=== PATIENT | female | born 1945 | race Caucasian/White ===

== ENCOUNTER 2017-06-03 09:00 | Inpatient (IN) ==
--- NOTE | 2017-05-29 09:11 | Cardiothoracic History & Phys ---
History of Present Illness Chief complaint: Chest pain History of present illness: Ms. Rhodes is a 71 year old female who underwent evaluation by Dr. rob as an outpatient because of exertional chest pain. This is typical of angina and occurred with exercise and was relieved by rest. There was some associated shortness of breath but no nausea or diaphoresis. Patient did not have nighttime symptoms nor any orthopnea. She did have a catheterization 5-7 years ago which was negative. At the time of this catheterization she was found to have severe three-vessel disease and was admitted for bypass surgery. Past medical history: Patient has a history of hypertension and diabetes mellitus type 2. She also has a history of hypothyroidism and hyperlipidemia. Her past surgical history shows a history of hysterectomy. Family history shows a history of stroke on her father's side as well as myocardial infarction. Patient's sister has type 2 diabetes mellitus. Social history the patient has never been a cigarette smoker and is a nondrinker. Review of systems is noncontributory for the present illness. Physical examination: Patient is a well-developed well-nourished white female in no acute distress. Examination of head eyes ears nose and throat show the pupils are equal and react to light and extraocular motions are intact. Oropharynx is benign. Examination of the neck shows no thyromegaly and there are no masses and there are no bruits. Examination of chest is clear to percussion and auscultation. Examination heart shows regular sinus rhythm and there are no murmurs. Examination the abdomen is soft and nontender and there are no masses or organomegaly. Examination extremities shows no cyanosis or edema and the neurological examination is grossly intact. Assessment: Three-vessel coronary artery disease. Plan: Coronary bypass surgery 06/04/2017. Home Medications Medication Instructions Recorded Confirmed Type Aspirin EC Tab 81 mg PO DAILY 05/28/17 05/28/17 History Atenolol 25 mg PO BID 05/28/17 05/28/17 History Garlic 2,000 mg PO BID 05/28/17 05/28/17 History Insulin Glargine [Lantus] 14 unit SUBCUT BEDTIME 05/28/17 05/28/17 History Isosorbide Mononitrate 10 mg PO BID 05/28/17 05/28/17 History Levothyroxine Tab [Synthroid Tab] 88 mcg PO DAILY 05/28/17 05/28/17 History Magnesium Chloride [Slow Mag] 64 mg PO BID 05/28/17 05/28/17 History Nitroglycerin Sl Tab [Nitrostat] 0.4 mg SL Q5M PRN #25 tablet 05/28/17 Rx Spironolactone 12.5 mg PO DAILY 05/28/17 05/28/17 History Vitamin E 400 unit PO DAILY 05/28/17 05/28/17 History amLODIPine [Norvasc] 2.5 mg PO BID 05/28/17 05/28/17 History metFORMIN [Glucophage] 1,000 mg PO BID W/MEALS 05/28/17 05/28/17 History Allergies Allergy/AdvReac Type Severity Reaction Status Date / Time nifedipine [From Procardia] Allergy Shakiness Verified 05/28/17 11:56 penicillin G Allergy RASH Verified 05/28/17 11:56 Sulfa (Sulfonamide Allergy RASH Verified 05/28/17 11:56 Antibiotics) sulfamethoxazole Allergy RASH Verified 05/28/17 11:56 [From Bactrim] trimethoprim [From Bactrim] Allergy RASH Verified 05/28/17 11:56 Medical,Surgical,& Family Hx - Medical History Cardio: History of: Hypertension Neurology: No history of: Seizures Endocrine: History of: Diabetes Mellitus (IDDM), Dyslipidemia - Surgical History Reproductive Surgeries: Surgical HX of;: Hysterectomy - Family History Family History: Reports;: Family Cancer (mother of cancer of uncertain primary), Family Heart Disease (father and 2 brothers with coronary artery disease.) - Social History Smoking Status: Never smoker
[~2017-06-03 09:00] MED LIST: DEXTROSE 50% 25 GM/50 ML VIAL IV PRN; GLUCAGON 1 MG VIAL IM PRN; NITROGLYCERIN SL 0.4 MG TABLET SL PRN
[2017-06-03] MEDS ORDERED: CEFUROXIME INJ 1,500 MG in SODIUM CHLORIDE 0.9% 100 ML IV ONE (09:12)
--- NOTE | 2017-06-03 10:25 | EKG Report ---
Stationary ECG Study [facility] Test Date: 06/03/2017 10:22:32 AM Pat Name: KWABENA BOSS Department: Room: 269 Gender: F Recreational Director: JIL : 1945 Requested by: Gianni Conner Order Number: [id number] Reading MD: ALEJANDRA SALAZAR Intervals [place] Rate: 69 P: 79 [place]: 240 QRS: 64 QRSD: 91 T: 90 QT: 381 QTc: 400 Interpretive Statements SINUS RHYTHM WITH PROLONGED [place] INTERVAL MINIMAL ST DEPRESSION Electronically Signed On 06-03-17 16:22:26 CDT by ALEJANDRA SALAZAR [email or web address]
[2017-06-03 10:34] LABS: Basophils % 0.6 % (0.0-0.8); Eosinophils # 0.1 10*3/uL (0.0-0.87); Eosinophils % 1.8 % (0.00-10.9); Hematocrit 32.8 VOL% (35.7-47.0); Hemoglobin 10.2 GM/DL (12.0-16.0); Immature Granulocytes % 0.5 %; Immature Granulocytes Absolute 0.03 #; Lymphocytes # 1.6 10*3/uL (1.4-4.0); Mean Corpuscular HGB Conc 31.1 GM/DL (32-36); Mean Corpuscular Hemoglobin 22 PG (27-34); Mean Corpuscular Volume 70.2 FL (87-102); Mean Platelet Volume 10.4 FL (9.6-12.0); Monocytes # 0.6 10*3/uL (0.11-0.8); Monocytes % 8.6 % (1.7-12.7); Neutrophils # 4.2 10*3/uL (1.4-7.4); Neutrophils % 64.5 % (38.7-73.9); Platelet Count 265 T/CUMM (130-400); Red Blood Count 4.67 MC/CUMM (3.8-5.5); Red Cell Distribution Width 17.4 % (9.3-17.3); White Blood Count 6.5 T/CUMM (4-12)
[2017-06-03 11:09] LABS: Alanine Aminotransferase 14 U/L (13-56); Alkaline Phosphatase 84 U/L (45-117); Aspartate Amino Transferase 9 U/L (0-37); Bilirubin,Total < 0.39 MG/DL (0.2-1.0); Calcium 9.7 MG/DL (8.5-10.1); Total Protein 7.8 G/DL (6.4-8.3)
[2017-06-03 11:10] LABS: Blood Urea Nitrogen 16 MG/DL (7-18); Glucose 135 MG/DL (74-106); Osmolality,Calculated 268.4 MOS/KG (273-304); Potassium 4.7 MMOL/L (3.5-5.1); Sodium 133 MMOL/L (136-145)
[2017-06-03 11:11] LABS: Allen Test Positive; Pt O2 Delivery Device Room Air
[2017-06-03 11:12] LABS: ABG Base Excess -2.5 MMOL/L (-2.5-2.5); ABG HCO3 22.2 MMOL/L (20-26); ABG Oxygen Saturation 93.8 % (95-100); ABG PCO2 34.2 MM HG (35-48); ABG PH 7.408 (7.35-7.45); ABG PO2 76.3 MM HG (80-95); ABG TCO2 19.7 MMOL/L (23-27)
[2017-06-03] MEDS: SPIRONOLACTONE 25 MG TABLET PO SCH ×3 (11:36→20:20)
[2017-06-03] MEDS: ISOSORBIDE MONONITRATE 20 MG TABLET PO SCH ×3 (11:38→20:03)
[2017-06-03] MEDS: amLODIPine 2.5 MG TABLET PO SCH ×4 (11:38→20:03)
[2017-06-03] MEDS: CHLORHEXIDINE 0.12% ORAL RINSE 60 ML BOTTLE SWISH/SPIT SCH ×5 (11:38→20:02)
[2017-06-03] MEDS: ASPIRIN EC 81 MG TABLET PO SCH (11:38)
[2017-06-03] MEDS: ATENOLOL 25 MG TABLET PO SCH ×5 (11:39→20:02)
[2017-06-03] MEDS: LEVOTHYROXINE 88 MCG TABLET PO SCH ×3 (11:39→11:43)
[2017-06-03] MEDS: MAGNESIUM CHLORIDE 64 MG TABLET PO SCH ×4 (11:39→20:03)
[2017-06-03] MEDS: SODIUM CHLORIDE 0.9% 1,000 ML IV SCH ×2 (11:40→11:44)
[2017-06-03] MEDS: INSULIN GLARGINE 100 UNIT/ML SUBCUT SCH ×3 (11:40→20:03)
[2017-06-03] MEDS: VITAMIN E 400 UNIT CAPSULE PO SCH (11:48)
--- NOTE | 2017-06-03 16:17 | XRay Report ---
2 view chest June 03, 2017 at 1540 hours Indication: Shortness of breath Comparison: Not available Findings: Cardiomediastinal contours are normal. Mild atheromatous changes along the arch. Lungs are clear bilaterally. No acute osseous abnormalities. Visualized upper abdomen demonstrates no acute pathology. Impression: No acute cardiopulmonary findings PROCEDURE INTERPRETED AT [facility] DEPARTMENT OF RADIOLOGY Final Report Signed by: Alex Mendez
--- NOTE | 2017-06-03 17:14 | Cardiology Consult Note ---
Assessment and Plan - Time spent with patient Time spent with patient: Greater than 30 minutes (1) Angina effort Status: Acute Assessment and plan: She has failed medical therapy Has significant three-vessel disease which would benefit from revascularization I reviewed the cath with Dr. Tapia. He agrees patient needs revascularization, bypass grafting We will continue her current cardiac meds to minimize recurrence of angina before the bypass We will continue treatment for her constipation postop We will continue cardiac meds If we need help with her diabetes management, could get Dr. Santiago Sanz to help I will follow along with you. Thank you for allowing me to participate in this patient's care Current Visit: No (2) Constipation Status: Acute Current Visit: Yes (3) 3-vessel CAD Status: Acute Current Visit: Yes (4) CAD (coronary artery disease) Status: Acute Current Visit: No (5) Diabetes Status: Acute Current Visit: No (6) Hypercholesterolemia Status: Acute Current Visit: No (7) Statin intolerance Status: Acute Current Visit: No History of Present Illness - Data of Consult Patient: known to practice within the last 3 years Consult date: 06/03/17 Requesting Physician: Gianni Tapia Primary care physician: Santiago Sanz - Consult Narrative Reason for consult: Evaluate angina, for bypass grafting History of present illness: Ms. Rhodes is a 71 year old female PCP: Dr. Santiago Sanz Change Management: Dr. martin Ms. tim Rhodes has had increasing arm pain which it was more atypical than typical. However she underwent treadmill testing was abnormal. She underwent cath. She was found to have three-vessel disease. It was assessed best to undergo bypass. However she was stable. I added some isosorbide mononitrate to her medical regimen he should let go home. She is set up to be admitted today and undergo bypass grafting by Dr. Tapia tomorrow. She has had less chest pain since at home. She does have some morning chest pain. No orthopnea, PND, edema, palpitations, syncope, cough, wheezing, or phlegm. Past medical history: Coronary disease Diabetes Anxiety Hypercholesterolemia Statin intolerance-now is on pravastatin, tolerating it better, may need a stronger statin Review of systems is negative except for having some nasal congestion. Her constipation has been better with taking Metamucil and MiraLAX regularly. CC: Gianni Tapia MD - Home Medications and Allergies Home Medications: Home Medications Medication Instructions Recorded Confirmed Type Aspirin EC Tab 81 mg PO DAILY 05/28/17 06/03/17 History Atenolol 25 mg PO BID 05/28/17 06/03/17 History Garlic 2,000 mg PO BID 05/28/17 06/03/17 History Insulin Glargine [Lantus] 14 unit SUBCUT BEDTIME 05/28/17 06/03/17 History Isosorbide Mononitrate 10 mg PO BID 05/28/17 06/03/17 History Levothyroxine Tab [Synthroid Tab] 88 mcg PO DAILY 05/28/17 06/03/17 History Magnesium Chloride [Slow Mag] 64 mg PO BID 05/28/17 06/03/17 History Nitroglycerin Sl Tab [Nitrostat] 0.4 mg SL Q5M PRN #25 tablet 05/28/17 06/03/17 Rx Spironolactone 12.5 mg PO DAILY 05/28/17 06/03/17 History Vitamin E 400 unit PO DAILY 05/28/17 06/03/17 History amLODIPine [Norvasc] 2.5 mg PO BID 05/28/17 06/03/17 History metFORMIN [Glucophage] 1,000 mg PO BID W/MEALS 05/28/17 06/03/17 History Allergies/Adverse Reactions: Allergies Allergy/AdvReac Type Severity Reaction Status Date / Time nifedipine [From Procardia] Allergy Shakiness Verified 05/28/17 11:56 penicillin G Allergy RASH Verified 05/28/17 11:56 Sulfa (Sulfonamide Allergy RASH Verified 05/28/17 11:56 Antibiotics) sulfamethoxazole Allergy RASH Verified 05/28/17 11:56 [From Bactrim] trimethoprim [From Bactrim] Allergy RASH Verified 05/28/17 11:56 12 point system: reviewed and no additional remarkable complaints except as stated (A 12 point review of systems is negative except for as mentioned in HPI. ) Medical,Surgical,& Family Hx - Medical History Cardio: History of: CAD, Hypertension Neurology: No history of: Seizures Endocrine: History of: Diabetes Mellitus (IDDM), Dyslipidemia, Thyroid Disorder Other: History of: Miscellaneous Medical Problems (:"blood clot in throat") - Surgical History Cardiac Surgeries: Sugical HX of: Cardiac Catheterization Reproductive Surgeries: Surgical HX of;: Hysterectomy - Family History Family History: Reports;: Family Cancer (mother of cancer of uncertain primary), Family Heart Disease (father and 2 brothers with coronary artery disease.) - Social History Smoking Status: Never smoker Frequency of Alcohol Use: None Type of Drug Use: None Physical Examination Vital Signs Temp Pulse Resp BP Pulse Ox 97.7 F 97 H 20 160/89 97 06/03/17 10:10 06/03/17 10:10 06/03/17 10:10 06/03/17 10:10 06/03/17 10:10 Exam: HEENT: Pupils equal, reactive to light and accommodation Neck: NoJVD or bruit Lungs clear to auscultation Heart: Regular rhythm rate with normal S1 and S2. Apical S4 Abdomen: No hepatosplenomegaly Spine/extremities: No clubbing, cyanosis, or edema Neuro: Nonfocal Psych: No depression or anxiety Right groin puncture site had is okay. Distal pulse the right leg is normal. Result/EKG - Labs CBC & BMP: 06/03/17 10:12 06/03/17 10:12 Lab Results: I have reviewed the past 24 hour labs Labs: Laboratory Results - last 24 hr 06/03/17 06/03/17 06/03/17 10:12 10:12 10:12 WBC 6.5 RBC 4.67 Hgb 10.2 L Hct 32.8 L MCV 70.2 L MCH 22 L MCHC 31.1 L RDW 17.4 H Plt Count 265 MPV 10.4 Neut % (Auto) 64.5 Lymph % (Auto) 24.0 [place] % (Auto) 8.6 Eos % (Auto) 1.8 Baso % (Auto) 0.6 Neut # (Auto) 4.2 Lymph # (Auto) 1.6 [place] # (Auto) 0.6 Eos # (Auto) 0.1 Baso # (Auto) 0.0 Immature Gran % 0.5 Nucleated RBC % 0.0 Immature Gran # 0.03 Nucleated RBCs # 0.00 Immature Plt Fraction 0.0 ABG pH ABG pCO2 ABG pO2 ABG HCO3 ABG Total CO2 ABG O2 Saturation ABG Base Excess FiO2 Sodium 133 L Potassium 4.7 Chloride 99 Carbon Dioxide 24 Anion Gap 14.7 BUN 16 Creatinine 0.90 GFR Calculation 60 BUN/Creatinine Ratio 17.00 Glucose 135 H POC Glucose Calculated Osmolality 268.4 L Calcium 9.7 Total Bilirubin < 0.39 AST 9 ALT 14 Alkaline Phosphatase 84 Total Protein 7.8 Albumin 4.0 Globulin 3.8 H Albumin/Globulin Ratio 1.0 L Blood Type A POSITIVE Antibody Screen Negative Crossmatch See Detail 06/03/17 06/03/17 06/03/17 10:49 11:50 15:48 WBC RBC Hgb Hct MCV MCH MCHC RDW Plt Count MPV Neut % (Auto) Lymph % (Auto) [place] % (Auto) Eos % (Auto) Baso % (Auto) Neut # (Auto) Lymph # (Auto) [place] # (Auto) Eos # (Auto) Baso # (Auto) Immature Gran % Nucleated RBC % Immature Gran # Nucleated RBCs # Immature Plt Fraction ABG pH 7.408 ABG pCO2 34.2 L ABG pO2 76.3 L ABG HCO3 22.2 ABG Total CO2 19.7 L ABG O2 Saturation 93.8 L ABG Base Excess -2.5 FiO2 21.00 Sodium Potassium Chloride Carbon Dioxide Anion Gap BUN Creatinine GFR Calculation BUN/Creatinine Ratio Glucose POC Glucose 95 232 H Calculated Osmolality Calcium Total Bilirubin AST ALT Alkaline Phosphatase Total Protein Albumin Globulin Albumin/Globulin Ratio Blood Type Antibody Screen Crossmatch 06/03/17 Unknown WBC RBC Hgb Hct MCV MCH MCHC RDW Plt Count MPV Neut % (Auto) Lymph % (Auto) [place] % (Auto) Eos % (Auto) Baso % (Auto) Neut # (Auto) Lymph # (Auto) [place] # (Auto) Eos # (Auto) Baso # (Auto) Immature Gran % Nucleated RBC % Immature Gran # Nucleated RBCs # Immature Plt Fraction ABG pH ABG pCO2 ABG pO2 ABG HCO3 ABG Total CO2 ABG O2 Saturation ABG Base Excess FiO2 Sodium Potassium Chloride Carbon Dioxide Anion Gap BUN Creatinine GFR Calculation BUN/Creatinine Ratio Glucose POC Glucose Calculated Osmolality Calcium Total Bilirubin AST ALT Alkaline Phosphatase Total Protein Albumin Globulin Albumin/Globulin Ratio Blood Type A POSITIVE Antibody Screen Crossmatch - Diagnostic Findings Procedure: Chest x-ray: report reviewed by me Quality Measures - VTE Contraindication to Pharmacological VTE Prophylaxis: High Risk of Bleeding Specialty Discharge - Follow Up or Referrals Follow up with: Alvin Martin MD [Physician] - Santiago Sanz MD [Primary Care Provider] - Gianni Tapia MD [Physician] -
[2017-06-03] MEDS: CHLORHEXIDINE 4% SOLN 118 ML BOTTLE TOP SCH ×2 (19:44→20:03)
[2017-06-03] MEDS ORDERED: SPIRONOLACTONE 25 MG TABLET PO ONE (21:00)
[2017-06-04] MEDS ORDERED: PAPAVERINE 60 MG/2 ML VIAL ONE ×2 (04:36→09:43)
[2017-06-04] MEDS ORDERED: VANCOMYCIN 1,000 MG VIAL ONE (04:36)
[2017-06-04] MEDS ORDERED: CEFUROXIME INJ 1,500 MG in SODIUM CHLORIDE 0.9% 100 ML IV ONE (05:00)
[2017-06-04] MEDS ORDERED: LORazepam 0.5 MG TABLET PO ONE (05:30)
[2017-06-04] MEDS ORDERED: FAMOTIDINE 20 MG TABLET PO ONE (05:30)
[2017-06-04] MEDS: MAGNESIUM CHLORIDE 64 MG TABLET PO SCH ×2 (05:54→21:41)
[2017-06-04] MEDS: ATENOLOL 25 MG TABLET PO SCH ×2 (05:54→21:41)
[2017-06-04] MEDS: LEVOTHYROXINE 88 MCG TABLET PO SCH ×2 (05:54→21:41)
[2017-06-04] MEDS: amLODIPine 2.5 MG TABLET PO SCH ×2 (05:54→21:40)
[2017-06-04] MEDS: ISOSORBIDE MONONITRATE 20 MG TABLET PO SCH ×2 (05:54→21:40)
[2017-06-04 05:58] LABS: PT Patient Result 10.9 SECS; Partial Thromboplastin Time 24.5 SECS (0-40)
[2017-06-04] MEDS: CHLORHEXIDINE 4% SOLN 118 ML BOTTLE TOP SCH ×2 (05:59→21:40)
[2017-06-04] MEDS: CHLORHEXIDINE 0.12% ORAL RINSE 60 ML BOTTLE SWISH/SPIT SCH ×3 (05:59→21:40)
[2017-06-04 06:01] LABS: Calcium 9.7 MG/DL (8.5-10.1); Osmolality,Calculated 279.7 MOS/KG (273-304); Potassium 4.2 MMOL/L (3.5-5.1)
[2017-06-04] MEDS ORDERED: CALCIUM CHLORIDE 1,000 MG/10 ML SYRINGE IV ONE ×2 (06:38→07:22)
[2017-06-04] MEDS ORDERED: NITROPRUSSIDE 50 MG/2 ML VIAL ONE (07:21)
[2017-06-04] MEDS ORDERED: PHENYLEPHRINE DRIP 40 MG/250 ML PREMIX IV ONE (07:21)
[2017-06-04] MEDS ORDERED: POTASSIUM CHLORIDE RIDER 100 ML IV ONE (07:22)
[2017-06-04] MEDS ORDERED: SODIUM BICARBONATE 50 MEQ/50 ML SYRINGE IV ONE ×2 (07:22→12:33)
[2017-06-04 07:47] LABS: ABG Base Excess -1.1 MMOL/L (-2.5-2.5); ABG HCO3 23.5 MMOL/L (20-26); ABG Oxygen Saturation 99.1 % (95-100); ABG PCO2 23.2 MM HG (35-48); ABG PH 7.551 (7.35-7.45); ABG TCO2 18.8 MMOL/L (23-27); Glucose Heart Surgery 165 MG/DL (74-106); Hemoglobin Heart Surgery 8.3 G/DL (12.0-16.0); Ionized Calcium Arterial 1.16 MMOL/L (1.21-1.46); PCO2 Patient Temp Arterial 23.2 MMHG; PH Patient Temp Arterial 7.551; Patient Temperature 37 CELCIUS; Potassium Heart/CVR 3.7 MMOL/L (3.5-5.1); Sodium Heart/CVR 138 MMOL/L (135-145)
[2017-06-04] MEDS ORDERED: INSULIN REGULAR DRIP 100 ML IV ONE (07:52)
[2017-06-04] MEDS ORDERED: ALBUMIN 5% 12.5 GM/250 ML VIAL IV ONE (08:01)
[2017-06-04 08:17] LABS: Apearance,Urine CLEAR (Clear); Bilirubin,Urine Negative (Negative); Blood, Urine Negative (Negative); Glucose,Urine (UA) 50 mg/dL (Negative); Ketones,Urine Negative (Negative); Nitrite,Urine Negative (Negative); Protein,Urine Negative; RBC,Urine 1 /HPF (0-4); Squamous Epithelial Cell,Urine Occasional /HPF (0-10); Urine Color Colorless (Yellow); Urine Specific Gravity 1.003 (1.001-1.035); Urine Urobilinogen < 2.0 EU/DL (0.2-1.0); WBC,Urine <1 /HPF (0-6)
[2017-06-04 09:17] LABS: Hematocrit Heart Surgery 25.4 PERCENT (37-47); Hemoglobin Heart Surgery 8.2 G/DL (12.0-16.0); PCO2 Patient Temp Venous 32.4 MM HG; PH Patient Temp Venous 7.427; PO2 Patient Temp Venous 35.6 MM HG; Potassium Heart/CVR 4.7 MMOL/L (3.5-5.1); VBG Base Excess -2.3 MEQ/L (0-4); VBG HCO3 22.2 MEQ/L (24-28); VBG Oxygen Saturation 77.6 %; VBG PCO2 37.5 MMHG (41-51); VBG PH 7.384; VBG PO2 43.8 MMHG (17-40)
[2017-06-04 09:43] LABS: Hemoglobin Heart Surgery 7.7 G/DL (12.0-16.0); PCO2 Patient Temp Venous 26.3 MM HG; PH Patient Temp Venous 7.512; PO2 Patient Temp Venous 33.1 MM HG; Potassium Heart/CVR 5.3 MMOL/L (3.5-5.1); VBG Base Excess -1.1 MEQ/L (0-4); VBG HCO3 23.2 MEQ/L (24-28); VBG Oxygen Saturation 80.4 %; VBG PCO2 31.9 MMHG (41-51); VBG PH 7.453; VBG PO2 43.6 MMHG (17-40)
[2017-06-04 10:13] LABS: Hematocrit Heart Surgery 22.1 PERCENT (37-47); Hemoglobin Heart Surgery 7.1 G/DL (12.0-16.0); PCO2 Patient Temp Venous 26.8 MM HG; PH Patient Temp Venous 7.518; PO2 Patient Temp Venous 35.9 MM HG; Potassium Heart/CVR 5.4 MMOL/L (3.5-5.1); VBG Base Excess -0.6 MEQ/L (0-4); VBG HCO3 23.7 MEQ/L (24-28); VBG Oxygen Saturation 78.7 %; VBG PCO2 29.5 MMHG (41-51); VBG PH 7.488; VBG PO2 41.2 MMHG (17-40)
[2017-06-04 11:50] LABS: Hemoglobin Heart Surgery 6.4 G/DL (12.0-16.0); PCO2 Patient Temp Venous 35.4 MM HG; PH Patient Temp Venous 7.327; PO2 Patient Temp Venous 38.3 MM HG; Potassium Heart/CVR 4.4 MMOL/L (3.5-5.1); VBG Base Excess -6.8 MEQ/L (0-4); VBG HCO3 18.4 MEQ/L (24-28); VBG Oxygen Saturation 64.5 %; VBG PCO2 35.4 MMHG (41-51); VBG PH 7.327; VBG PO2 38.3 MMHG (17-40)
[2017-06-04] MEDS ORDERED: INSULIN REGULAR 100 UNIT/ML ONE (12:03)
[2017-06-04 12:19] LABS: Hematocrit Heart Surgery 25.3 PERCENT (37-47); Hemoglobin Heart Surgery 8.1 G/DL (12.0-16.0); Potassium Heart/CVR 3.4 MMOL/L (3.5-5.1)
[2017-06-04 12:27] LABS: VBG Base Excess 1.6 MEQ/L (0-4); VBG HCO3 25.6 MEQ/L (24-28); VBG PCO2 34.1 MMHG (41-51); VBG PH 7.474; VBG PO2 40.9 MMHG (17-40)
[2017-06-04 12:28] LABS: PCO2 Patient Temp Venous 34.1 MM HG; PH Patient Temp Venous 7.474; PO2 Patient Temp Venous 40.9 MM HG; VBG Oxygen Saturation 79.7 %
[2017-06-04] MEDS ORDERED: DEXTROSE 5% KCL 20 MEQ 20 MEQ/1,000 ML BAG IV ONE (12:32)
[2017-06-04] MEDS ORDERED: HEPARIN 10,000 UNIT/10 ML VIAL ONE (12:33)
[2017-06-04] MEDS ORDERED: ALBUMIN 25% 25 GM/100 ML VIAL IV ONE (12:33)
[2017-06-04] MEDS ORDERED: methylPREDNISolone SOD SUC 1,000 MG/8 ML VIAL ONE (12:33)
[2017-06-04] MEDS ORDERED: POTASSIUM CHLORIDE 20 MEQ/10 ML VIAL ONE (12:33)
[2017-06-04] MEDS ORDERED: FUROSEMIDE 20 MG/2 ML VIAL ONE (12:33)
[2017-06-04] MEDS ORDERED: MAGNESIUM SULFATE 1 GM/2 ML VIAL ONE (12:33)
[2017-06-04] MEDS ORDERED: PROTAMINE SULFATE 250 MG/25 ML VIAL IV ONE (12:33)
[2017-06-04 12:44] LABS: ABG HCO3 21.9 MMOL/L (20-26); ABG Oxygen Saturation 99.3 % (95-100); ABG PCO2 37.2 MM HG (35-48); ABG PH 7.375 (7.35-7.45); ABG TCO2 20.4 MMOL/L (23-27); Glucose Heart Surgery 259 MG/DL (74-106); Ionized Calcium Arterial 1.22 MMOL/L (1.21-1.46); PCO2 Patient Temp Arterial 37.2 MMHG; PH Patient Temp Arterial 7.375; Patient Temperature 37 CELCIUS; Potassium Heart/CVR 3.6 MMOL/L (3.5-5.1); Sodium Heart/CVR 141 MMOL/L (135-145)
[2017-06-04] MEDS ORDERED: DOBUTamine 500 MG/250 ML PREMIX IV ONE ×2 (13:16→14:23)
--- NOTE | 2017-06-04 13:51 | Operative Note ---
Date of procedure: 06/04/17 Pre-op diagnosis: Coronary artery disease Post-op diagnosis: same Procedure: Procedure: Coronary bypass grafting 4 with a left internal mammary graft to the anterior descending coronary artery and saphenous vein graft to the right ramus intermedius and circumflex marginal coronary arteries. Findings: Patient is a 72-year-old lady who was found on cardiac catheterization to have critical three-vessel coronary disease. At the time of surgery left ventricular function was noted to be mildly impaired and grafts were placed to the above noted vessels. The distal vessels all had some degree of disease at the site of anastomosis but were of adequate size. The patient tolerated the procedure well and initially was weaned from cardiopulmonary bypass without difficulty but then had a period of hypotension which did not quickly respond to the usual measures and cardiopulmonary bypass was reinstituted and the intra-aortic balloon pump was placed. With this in place patient was weaned from cardiopulmonary bypass without difficulty. She was returned to recovery in satisfactory but critical condition. Procedure: Patient brought to the operating room placed in the operating table in supine position. After satisfactory induction of general anesthesia the chest abdomen and legs were prepped and draped in sterile fashion. Greater saphenous vein was harvested from both lower legs and prepared his arterial grafts. Incisions in the leg were closed with 3-0 subcutaneous Monocryl and skin latrice. A standard sternotomy incision was made and the sternum was divided and the heart suspended in a pericardial cradle. Left internal mammary artery was dissected free from its position in the anterior chest wall and prepared as an arterial graft. It was of marginal size for use as an arterial graft. Right internal mammary artery was palpated and it too felt small and therefore we elected not to use the right internal mammary artery. Patient was prepared for cardiopulmonary bypass with systemic heparinization and cannulation of the ascending aorta and right atrium. Cardiopulmonary bypass was begun and aorta was crossclamped and the heart arrested with cardioplegia solution injected into the aortic root. Heart was protected during the period of crossclamping with topical saline slush. Distal anastomoses were constructed as noted above and then the aorta was unclamped reestablishing cardiac action. Proximal anastomoses were constructed between the saphenous vein grafts in the ascending aorta and then the patient was weaned from cardiopulmonary bypass. The above-noted findings were experienced with hypotension not responding to the usual measures and cardiopulmonary bypass was really instituted and the intra-aortic balloon pump was placed via a small cutdown over the right femoral artery. Incision in the groin was closed with skin latrice. With the intra-aortic balloon pump in place patient was weaned from cardiopulmonary bypass without difficulty. Operative field was inspected for hemostasis and this was considered adequate the incision was closed with interrupted stainless steel wire and the sternum 0 Monopril in the presternal fascia. Skin was closed with 3-0 subcuticular Monocryl. Chest tubes were left in the left hemithorax in the anterior mediastinum and brought out through separate stab incisions. Patient was returned to recovery in satisfactory condition. Anesthesia: SHASHIA Surgeon / Physician: Gianni Tapia Estimated blood loss: other (Unable to determine because of cardiopulmonary bypass) Condition: stable Disposition: ICU Results - Labs CBC & BMP: 06/04/17 12:39 06/04/17 04:10 Discharge Plan - Discharge Medications No Action Vitamin E 400 unit PO DAILY Spironolactone 12.5 mg PO DAILY Magnesium Chloride [Slow Mag] 64 mg PO BID Levothyroxine Tab [Synthroid Tab] 88 mcg PO DAILY Insulin Glargine [Lantus] 14 unit SUBCUT BEDTIME Atenolol 25 mg PO BID Aspirin EC Tab 81 mg PO DAILY metFORMIN [Glucophage] 1,000 mg PO BID W/MEALS amLODIPine [Norvasc] 2.5 mg PO BID Garlic 2,000 mg PO BID Isosorbide Mononitrate 10 mg PO BID Nitroglycerin Sl Tab [Nitrostat] 0.4 mg SL Q5M PRN #25 tablet PRN Reason: Chest Pain - Follow Up or Referral Follow Up: Gianni Tapia MD [Physician] - Santiago Sanz MD [Primary Care Provider] - Alvin Martin MD [Physician] - - Forms/Instructions
[2017-06-04] MEDS ORDERED: NITROPRUSSIDE 100 MG in DEXTROSE 5% 250 ML IV PRN (13:58)
[2017-06-04] MEDS ORDERED: DEXTROSE 50% 25 GM/50 ML SYRINGE IV PRN ×2 (13:58)
[2017-06-04] MEDS ORDERED: MAGNESIUM SULF RIDER 4 GM in PREMIX 1 EACH IV PRN (13:58)
[2017-06-04] MEDS ORDERED: MIDAZOLAM 10 MG/2 ML VIAL IV PRN (13:58)
[2017-06-04] MEDS ORDERED: MAGNESIUM SULF RIDER 2 GM in PREMIX 1 EACH IV PRN (13:58)
[2017-06-04] MEDS ORDERED: ACETAMINOPHEN 650 MG SUPP RECTAL PRN (13:58)
[2017-06-04] MEDS ORDERED: ONDANSETRON 4 MG/2 ML VIAL IV PRN (13:58)
[2017-06-04] MEDS ORDERED: INSULIN REGULAR 100 UNIT/ML IV PRN (13:58)
[2017-06-04] MEDS ORDERED: VECURONIUM 10 MG VIAL IV PRN ×2 (13:58)
[2017-06-04] MEDS ORDERED: MORPHINE 10 MG/1 ML VIAL IV PRN (13:58)
[2017-06-04] MEDS ORDERED: PHENYLEPHRINE DRIP 40 MG/250 ML PREMIX IV PRN (13:58)
[2017-06-04] MEDS ORDERED: INSULIN REGULAR 100 UNIT/ML IV ONE (13:58)
[2017-06-04] MEDS ORDERED: CALCIUM CHLORIDE 1,000 MG/10 ML SYRINGE IV PRN (13:58)
[2017-06-04] MEDS ORDERED: INSULIN REGULAR DRIP 100 ML IV SCH (14:00)
[2017-06-04] MEDS ORDERED: VECURONIUM 10 MG VIAL IV ONE (14:23)
[2017-06-04] MEDS ORDERED: ETOMIDATE 20 MG/10 ML VIAL IV ONE (14:23)
[2017-06-04] MEDS ORDERED: MINERAL OIL/PETROLATUM OPH OINT 3.5 GM TUBE ONE (14:23)
[2017-06-04] MEDS ORDERED: HEPARIN/NACL 0.9% 2 UNITS/ML 500 ML IV ONE (14:23)
[2017-06-04] MEDS ORDERED: SEVOFLURANE 1 UNIT/15 MINUTE INH ONE (14:23)
[2017-06-04] MEDS ORDERED: SODIUM CHLORIDE 0.9% 500 ML IV ONE (14:24)
[2017-06-04] MEDS ORDERED: NITROGLYCERIN DRIP 50 MG/250 ML BOTTLE IV ONE ×2 (14:24→15:45)
[2017-06-04] MEDS ORDERED: LACTATED RINGERS 2,000 ML IV ONE (14:24)
[2017-06-04] MEDS ORDERED: AMINOCAPROIC ACID 5,000 MG/20 ML VIAL IV ONE (14:24)
[2017-06-04] MEDS ORDERED: SODIUM CHLORIDE 0.9% 4,000 ML IV ONE (14:24)
[2017-06-04] MEDS: SODIUM CHLORIDE 0.45% 1,000 ML IV SCH ×2 (14:27)
[2017-06-04 14:31] LABS: ABG Base Excess -3.5 MMOL/L (-2.5-2.5); ABG HCO3 21.5 MMOL/L (20-26); ABG Oxygen Saturation 98.7 % (95-100); ABG PCO2 34.8 MM HG (35-48); ABG PH 7.388 (7.35-7.45); ABG TCO2 19.3 MMOL/L (23-27); Glucose Heart Surgery 222 MG/DL (74-106); Hematocrit Heart Surgery 28.2 PERCENT (37-47); Hemoglobin Heart Surgery 9.1 G/DL (12.0-16.0); Potassium Heart/CVR 3.6 MMOL/L (3.5-5.1)
--- NOTE | 2017-06-04 14:31 | Operative Note ---
Date of procedure: 06/04/17 Pre-op diagnosis: Severe coronary artery disease Post-op diagnosis: same Procedure: [place] of bilateral lower lower extremity great saphenous vein Assist with distal anastomosis of coronary artery bypass graft I made an incision on the medial side of the left lower extremity from the medial malleolus all the way up to the knee. The great saphenous vein was harvested in its entirety. Hemostasis was achieved. I then turned my attention to harvest the right lower extremity great saphenous vein for total of 3 venous grafts. The same procedure was repeated on the right side. The cutaneous tissue was closed using PDS and the skin was closed using latrice. I then turned my attention to assist with the distal anastomosis of the coronary artery bypass graft with Dr. Tapia. Anastomosis was achieved to the right main coronary artery, the ramus artery, the obtuse marginal artery using saphenous vein grafts, and the LAD using pedicled [place]. Details of this procedure are dictated by Dr. Tapia in a separate note. Surgeon / Physician: Shira Valencia Results - Labs CBC & BMP: 06/04/17 12:39 06/04/17 04:10 Discharge Plan - Discharge Medications No Action Vitamin E 400 unit PO DAILY Spironolactone 12.5 mg PO DAILY Magnesium Chloride [Slow Mag] 64 mg PO BID Levothyroxine Tab [Synthroid Tab] 88 mcg PO DAILY Insulin Glargine [Lantus] 14 unit SUBCUT BEDTIME Atenolol 25 mg PO BID Aspirin EC Tab 81 mg PO DAILY metFORMIN [Glucophage] 1,000 mg PO BID W/MEALS amLODIPine [Norvasc] 2.5 mg PO BID Garlic 2,000 mg PO BID Isosorbide Mononitrate 10 mg PO BID Nitroglycerin Sl Tab [Nitrostat] 0.4 mg SL Q5M PRN #25 tablet PRN Reason: Chest Pain - Follow Up or Referral Follow Up: Gianni Tapia MD [Physician] - Santiago Sanz MD [Primary Care Provider] - Alvin Martin MD [Physician] - - Forms/Instructions
[2017-06-04 14:34] LABS: Hematocrit 26.9 VOL% (35.7-47.0); Hemoglobin 9.1 GM/DL (12.0-16.0); Mean Corpuscular HGB Conc 33.8 GM/DL (32-36); Mean Corpuscular Hemoglobin 28 PG (27-34); Mean Corpuscular Volume 81.3 FL (87-102); Mean Platelet Volume 9.5 FL (9.6-12.0); Platelet Count 85 T/CUMM (130-400); Red Blood Count 3.31 MC/CUMM (3.8-5.5); Red Cell Distribution Width 19.3 % (9.3-17.3)
[2017-06-04 14:35] LABS: Basophils % 0.1 % (0.0-0.8); Eosinophils % 0.3 % (0.00-10.9); Immature Granulocytes % 0.8 %; Immature Granulocytes Absolute 0.06 #; Lymphocytes # 0.4 10*3/uL (1.4-4.0); Lymphocytes % 4.8 % (21.3-54.2); Monocytes # 0.7 10*3/uL (0.11-0.8); Monocytes % 9.1 % (1.7-12.7); Neutrophils # 6.8 10*3/uL (1.4-7.4); Neutrophils % 84.9 % (38.7-73.9)
[2017-06-04 14:51] LABS: INR 1.2; PT Patient Result 13.2 SECS; Partial Thromboplastin Time 28.4 SECS (0-40)
[2017-06-04] MEDS: POTASSIUM CHLORIDE RIDER 20 MEQ in PREMIX 1 EACH IV PRN ×4 (15:05→23:27)
--- NOTE | 2017-06-04 15:11 | Event Note ---
[place]-Desiree catheter passed via the right subclavian vein.
[2017-06-04 15:14] LABS: Albumin 2.3 G/DL (3.4-5.0); Bilirubin,Total 1.2 MG/DL (0.2-1.0); Calcium 8.3 MG/DL (8.5-10.1); Magnesium 2.1 MG/DL (1.8-2.4); Osmolality,Calculated 299.4 MOS/KG (273-304); Potassium 3.7 MMOL/L (3.5-5.1); Total Protein 4.1 G/DL (6.4-8.3)
[2017-06-04 15:23] LABS: CKMB % 4.3 %
[2017-06-04 15:26] LABS: Troponin I Only 26.1 NG/ML (0.00-0.045)
[2017-06-04 15:33] LABS: ABG Base Excess -1.9 MMOL/L (-2.5-2.5); ABG HCO3 22.8 MMOL/L (20-26); ABG Oxygen Saturation 99.1 % (95-100); ABG PCO2 31.1 MM HG (35-48); ABG PH 7.444 (7.35-7.45); ABG TCO2 19.1 MMOL/L (23-27); Glucose Heart Surgery 225 MG/DL (74-106); Hematocrit Heart Surgery 33.7 PERCENT (37-47); Hemoglobin Heart Surgery 10.9 G/DL (12.0-16.0); Potassium Heart/CVR 4.8 MMOL/L (3.5-5.1)
[2017-06-04] MEDS: DOBUTamine 500 MG/250 ML PREMIX IV SCH (15:58)
--- NOTE | 2017-06-04 15:58 | XRay Report ---
Exam: XR chest 1V portable Indication: Intubated, status post CABG Comparison study: 06/03/2017 Findings: Median sternotomy wiring is now noted. Right-sided [place]-Desiree catheter is noted with the tip in the proximal right main pulmonary artery. Right-sided central venous catheter is noted in position with the tip near the lower SVC. Endotracheal tube is in position with the tip approximately 2 cm from the vern. Esophagogastric tube terminates in the proximal stomach. Mediastinal drains and left chest tube are noted in position. There is no significant pneumothorax. Minimal perihilar and basilar interstitial opacities are noted bilaterally, which are nonspecific but likely represent atelectasis and trace pleural effusions. Impression: Postsurgical changes as detailed above. Support tubes and lines appear in appropriate position radiographically. No pneumothorax. PROCEDURE INTERPRETED AT [facility] DEPARTMENT OF RADIOLOGY Final Report Signed by: Kaz Jacinto
[2017-06-04] MEDS: NITROGLYCERIN DRIP 50 MG/250 ML BOTTLE IV SCH (15:59)
[2017-06-04] MEDS: ALBUMIN 5% 12.5 GM in PREMIX 1 EACH IV PRN ×3 (16:04→21:20)
[2017-06-04] MEDS: LACTATED RINGERS 250 ML IV PRN ×4 (16:06→16:10)
[2017-06-04 16:38] LABS: ABG Base Excess 0.3 MMOL/L (-2.5-2.5); ABG Oxygen Saturation 98.2 % (95-100); ABG PCO2 26.6 MM HG (35-48); ABG PH 7.535 (7.35-7.45); ABG PO2 131.3 MM HG (80-95); ABG TCO2 22.8 MMOL/L (23-27); Glucose Heart Surgery 224 MG/DL (74-106); Hemoglobin Heart Surgery 11.2 G/DL (12.0-16.0); Potassium Heart/CVR 3.7 MMOL/L (3.5-5.1)
--- NOTE | 2017-06-04 17:33 | Cardiology Progress Note ---
Assessment and Plan (1) Angina effort Status: Acute Assessment and plan: She has failed medical therapy Has significant three-vessel disease which would benefit from revascularization I reviewed the cath with Dr. Tapia. He agrees patient needs revascularization, bypass grafting We will continue her current cardiac meds to minimize recurrence of angina before the bypass We will continue treatment for her constipation postop We will continue cardiac meds If we need help with her diabetes management, could get Dr. Sanitago Sanz to help I will follow along with you. Thank you for allowing me to participate in this patient's care 06/04/17 Difficulty in the OR Intra-aortic balloon pump placed. Hemodynamically she is more stable Her troponin and CK-MB have increased, suggesting an PA may have been the cause of the event, or it could have been secondary to other causes We will continue to get serial EKGs and enzymes Continue support I discussed with the patient's daughter and her cousin about the overall situation. With having an PA, prognosis is guarded. Current Visit: No (2) Constipation Status: Acute Current Visit: Yes (3) 3-vessel CAD Status: Acute Current Visit: Yes (4) CAD (coronary artery disease) Status: Acute Current Visit: No (5) Diabetes Status: Acute Current Visit: No (6) Hypercholesterolemia Status: Acute Current Visit: No (7) Statin intolerance Status: Acute Current Visit: No Cardiology - PN: Subj Interval history: The patient had difficulty in surgery, some drop in blood pressure, there is more surgery would be to be done than expected, per Dr. Tapia talking to the family. Exam (Progress Note) - Constitutional Vitals: Period Temp Pulse Resp BP Sys/Morales Pulse Ox Last 24 Hr 96.1 F-98.4 F 68-91 10-20 89-152/35-82 93-100 Exam: HEENT: Pupils equal, reactive to light and accommodation Neck: NoJVD or bruit Lungs clear to auscultation Heart: Regular rhythm rate with normal S1 and S2. Apical S4 ; there was a pericardial friction rub relates the chest tubes Abdomen: No hepatosplenomegaly Spine/extremities: No clubbing, cyanosis, or edema Neuro: Nonfocal Psych: No depression or anxiety Result/EKG - Labs CBC & BMP: 06/04/17 14:28 06/04/17 14:28 Labs: Laboratory Results - last 24 hr 09/02/1206/03/17 06/04/17 10:12 19:32 04:10 WBC RBC Hgb Hct MCV MCH MCHC RDW Plt Count MPV Neut % (Auto) Lymph % (Auto) [place] % (Auto) Eos % (Auto) Baso % (Auto) Neut # (Auto) Lymph # (Auto) [place] # (Auto) Eos # (Auto) Baso # (Auto) Immature Gran % Nucleated RBC % Immature Gran # Nucleated RBCs # Immature Plt Fraction INR 1.0 PT Patient/Control Mix 10.9 Circ Anticoag PTT 24.5 Patient Temperature ABG pH ABG pH at Pt Temp ABG pCO2 ABG pCO2 at Pt Temp ABG pO2 ABG pO2 at Pt Temp ABG HCO3 ABG Total CO2 ABG O2 Saturation ABG Base Excess ABG Sodium VBG pH VBG pCO2 VBG pO2 VBG HCO3 VBG Total CO2 VBG O2 Saturation VBG Base Excess Hemoglobin Hematocrit Ionized Calcium FiO2 Sodium Potassium Chloride Carbon Dioxide Anion Gap BUN Creatinine GFR Calculation BUN/Creatinine Ratio Glucose POC Glucose 227 H Calculated Osmolality Calcium Venous Ioniz Calcium Magnesium Total Bilirubin AST ALT Alkaline Phosphatase Total Creatine Kinase CK-MB (CK-2) CK and CKMB Interp Troponin I Total Protein Albumin Globulin Albumin/Globulin Ratio Urine Color Urine Appearance Urine pH Ur Specific [place] Urine Protein Urine Glucose (UA) Urine Ketones Urine Blood Urine Nitrate Urine Bilirubin Urine Urobilinogen Urine Leukocytes Urine RBC Urine WBC Ur Squamous Epith Cells Ur Culture Indicated? Blood Type A POSITIVE Antibody Screen Negative Crossmatch See Detail 06/04/17 06/04/17 06/04/17 04:10 04:37 06:55 WBC RBC Hgb Hct MCV MCH MCHC RDW Plt Count MPV Neut % (Auto) Lymph % (Auto) [place] % (Auto) Eos % (Auto) Baso % (Auto) Neut # (Auto) Lymph # (Auto) [place] # (Auto) Eos # (Auto) Baso # (Auto) Immature Gran % Nucleated RBC % Immature Gran # Nucleated RBCs # Immature Plt Fraction INR PT Patient/Control Mix Circ Anticoag PTT Patient Temperature ABG pH ABG pH at Pt Temp ABG pCO2 ABG pCO2 at Pt Temp ABG pO2 ABG pO2 at Pt Temp ABG HCO3 ABG Total CO2 ABG O2 Saturation ABG Base Excess ABG Sodium VBG pH VBG pCO2 VBG pO2 VBG HCO3 VBG Total CO2 VBG O2 Saturation VBG Base Excess Hemoglobin Hematocrit Ionized Calcium FiO2 Sodium 138 Potassium 4.2 Chloride 102 Carbon Dioxide 27 Anion Gap 13.2 BUN 18 Creatinine 0.80 GFR Calculation 69 BUN/Creatinine Ratio 22.00 H Glucose 155 H POC Glucose 163 H Calculated Osmolality 279.7 Calcium 9.7 Venous Ioniz Calcium Magnesium 2.0 Total Bilirubin AST ALT Alkaline Phosphatase Total Creatine Kinase CK-MB (CK-2) CK and CKMB Interp Troponin I Total Protein Albumin Globulin Albumin/Globulin Ratio Urine Color Colorless Urine Appearance Clear Urine pH 5.0 Ur Specific [place] 1.003 Urine Protein Negative Urine Glucose (UA) 50 Urine Ketones Negative Urine Blood Negative Urine Nitrate Negative Urine Bilirubin Negative Urine Urobilinogen < 2.0 H Urine Leukocytes Negative Urine RBC 1 Urine WBC <1 Ur Squamous Epith Cells Occasional Ur Culture Indicated? Not indicated Blood Type Antibody Screen Crossmatch 06/04/17 06/04/17 06/04/17 07:43 07:43 09:10 WBC RBC Hgb Hct MCV MCH MCHC RDW Plt Count 81 L D MPV Neut % (Auto) Lymph % (Auto) [place] % (Auto) Eos % (Auto) Baso % (Auto) Neut # (Auto) Lymph # (Auto) [place] # (Auto) Eos # (Auto) Baso # (Auto) Immature Gran % Nucleated RBC % Immature Gran # Nucleated RBCs # Immature Plt Fraction INR PT Patient/Control Mix Circ Anticoag PTT Patient Temperature 37 34 ABG pH 7.551 H ABG pH at Pt Temp 7.551 7.427 ABG pCO2 23.2 L ABG pCO2 at Pt Temp 23.2 32.4 ABG pO2 450.0 H ABG pO2 at Pt Temp 450.0 35.6 ABG HCO3 23.5 ABG Total CO2 18.8 L ABG O2 Saturation 99.1 ABG Base Excess -1.1 ABG Sodium 138 131 L VBG pH 7.384 VBG pCO2 37.5 L VBG pO2 43.8 H VBG HCO3 22.2 L VBG Total CO2 20.9 VBG O2 Saturation 77.6 VBG Base Excess -2.3 L Hemoglobin 8.3 L 8.2 L Hematocrit 26.0 L 25.4 L Ionized Calcium 1.16 L FiO2 80.00 Sodium Potassium 3.7 4.7 Chloride Carbon Dioxide Anion Gap BUN Creatinine GFR Calculation BUN/Creatinine Ratio Glucose 165 H 371 H POC Glucose Calculated Osmolality Calcium Venous Ioniz Calcium 0.93 L Magnesium Total Bilirubin AST ALT Alkaline Phosphatase Total Creatine Kinase CK-MB (CK-2) CK and CKMB Interp Troponin I Total Protein Albumin Globulin Albumin/Globulin Ratio Urine Color Urine Appearance Urine pH Ur Specific [place] Urine Protein Urine Glucose (UA) Urine Ketones Urine Blood Urine Nitrate Urine Bilirubin Urine Urobilinogen Urine Leukocytes Urine RBC Urine WBC Ur Squamous Epith Cells Ur Culture Indicated? Blood Type Antibody Screen Crossmatch 06/04/17 06/04/17 06/04/17 09:41 10:14 11:50 WBC RBC Hgb Hct MCV MCH MCHC RDW Plt Count MPV Neut % (Auto) Lymph % (Auto) [place] % (Auto) Eos % (Auto) Baso % (Auto) Neut # (Auto) Lymph # (Auto) [place] # (Auto) Eos # (Auto) Baso # (Auto) Immature Gran % Nucleated RBC % Immature Gran # Nucleated RBCs # Immature Plt Fraction INR PT Patient/Control Mix Circ Anticoag PTT Patient Temperature 33 35 37 ABG pH ABG pH at Pt Temp 7.512 7.518 7.327 ABG pCO2 ABG pCO2 at Pt Temp 26.3 26.8 35.4 ABG pO2 ABG pO2 at Pt Temp 33.1 35.9 38.3 ABG HCO3 ABG Total CO2 ABG O2 Saturation ABG Base Excess ABG Sodium 128 L 131 L 136 VBG pH 7.453 7.488 7.327 VBG pCO2 31.9 L 29.5 L 35.4 L VBG pO2 43.6 H 41.2 H 38.3 VBG HCO3 23.2 L 23.7 L 18.4 L VBG Total CO2 20.9 21.2 17.8 VBG O2 Saturation 80.4 78.7 64.5 VBG Base Excess -1.1 L -0.6 L -6.8 L Hemoglobin 7.7 L 7.1 L 6.4 L* Hematocrit 24.0 L 22.1 L 20.0 L Ionized Calcium FiO2 80.00 80.00 80.00 Sodium Potassium 5.3 H 5.4 H 4.4 Chloride Carbon Dioxide Anion Gap BUN Creatinine GFR Calculation BUN/Creatinine Ratio Glucose 361 H 306 H 306 H POC Glucose Calculated Osmolality Calcium Venous Ioniz Calcium 0.88 L 0.84 L 1.49 H Magnesium Total Bilirubin AST ALT Alkaline Phosphatase Total Creatine Kinase CK-MB (CK-2) CK and CKMB Interp Troponin I Total Protein Albumin Globulin Albumin/Globulin Ratio Urine Color Urine Appearance Urine pH Ur Specific [place] Urine Protein Urine Glucose (UA) Urine Ketones Urine Blood Urine Nitrate Urine Bilirubin Urine Urobilinogen Urine Leukocytes Urine RBC Urine WBC Ur Squamous Epith Cells Ur Culture Indicated? Blood Type Antibody Screen Crossmatch 06/04/17 06/04/17 06/04/17 12:19 12:39 12:39 WBC RBC Hgb Hct MCV MCH MCHC RDW Plt Count 67 L MPV Neut % (Auto) Lymph % (Auto) [place] % (Auto) Eos % (Auto) Baso % (Auto) Neut # (Auto) Lymph # (Auto) [place] # (Auto) Eos # (Auto) Baso # (Auto) Immature Gran % Nucleated RBC % Immature Gran # Nucleated RBCs # Immature Plt Fraction INR PT Patient/Control Mix Circ Anticoag PTT Patient Temperature 37 37 ABG pH Cancelled 7.375 ABG pH at Pt Temp 7.474 7.375 ABG pCO2 Cancelled 37.2 ABG pCO2 at Pt Temp 34.1 37.2 ABG pO2 Cancelled 267.0 H ABG pO2 at Pt Temp 40.9 267.0 ABG HCO3 Cancelled 21.9 ABG Total CO2 Cancelled 20.4 L ABG O2 Saturation Cancelled 99.3 ABG Base Excess Cancelled -3.0 L ABG Sodium 139 141 VBG pH 7.474 VBG pCO2 34.1 L VBG pO2 40.9 H VBG HCO3 25.6 VBG Total CO2 23.3 VBG O2 Saturation 79.7 VBG Base Excess 1.6 Hemoglobin 8.1 L 8.0 L Hematocrit 25.3 L 25.0 L Ionized Calcium Cancelled 1.22 FiO2 Cancelled Sodium Potassium 3.4 L 3.6 Chloride Carbon Dioxide Anion Gap BUN Creatinine GFR Calculation BUN/Creatinine Ratio Glucose 314 H 259 H POC Glucose Calculated Osmolality Calcium Venous Ioniz Calcium 1.25 Magnesium Total Bilirubin AST ALT Alkaline Phosphatase Total Creatine Kinase CK-MB (CK-2) CK and CKMB Interp Troponin I Total Protein Albumin Globulin Albumin/Globulin Ratio Urine Color Urine Appearance Urine pH Ur Specific [place] Urine Protein Urine Glucose (UA) Urine Ketones Urine Blood Urine Nitrate Urine Bilirubin Urine Urobilinogen Urine Leukocytes Urine RBC Urine WBC Ur Squamous Epith Cells Ur Culture Indicated? Blood Type Antibody Screen Crossmatch 06/04/17 06/04/17 06/04/17 14:28 14:28 14:28 WBC 8.0 RBC 3.31 L D Hgb 9.1 L Hct 26.9 L MCV 81.3 L MCH 28 MCHC 33.8 RDW 19.3 H Plt Count 85 L D MPV 9.5 L Neut % (Auto) 84.9 H Lymph % (Auto) 4.8 L [place] % (Auto) 9.1 Eos % (Auto) 0.3 Baso % (Auto) 0.1 Neut # (Auto) 6.8 Lymph # (Auto) 0.4 L [place] # (Auto) 0.7 Eos # (Auto) 0.0 Baso # (Auto) 0.0 Immature Gran % 0.8 Nucleated RBC % 0.0 Immature Gran # 0.06 Nucleated RBCs # 0.00 Immature Plt Fraction 0.0 INR 1.2 PT Patient/Control Mix 13.2 D Circ Anticoag PTT 28.4 Patient Temperature ABG pH ABG pH at Pt Temp ABG pCO2 ABG pCO2 at Pt Temp ABG pO2 ABG pO2 at Pt Temp ABG HCO3 ABG Total CO2 ABG O2 Saturation ABG Base Excess ABG Sodium VBG pH VBG pCO2 VBG pO2 VBG HCO3 VBG Total CO2 VBG O2 Saturation VBG Base Excess Hemoglobin Hematocrit Ionized Calcium FiO2 Sodium 147 H Potassium 3.7 Chloride 110 H Carbon Dioxide 22 Anion Gap 18.7 H BUN 13 Creatinine 1.00 GFR Calculation 53 BUN/Creatinine Ratio 13.00 Glucose 240 H POC Glucose Calculated Osmolality 299.4 Calcium 8.3 L Venous Ioniz Calcium Magnesium 2.1 Total Bilirubin 1.20 H AST 82 H ALT 20 Alkaline Phosphatase 42 L Total Creatine Kinase CK-MB (CK-2) CK and CKMB Interp Troponin I Total Protein 4.1 L Albumin 2.3 L Globulin 1.8 L Albumin/Globulin Ratio 1.2 Urine Color Urine Appearance Urine pH Ur Specific [place] Urine Protein Urine Glucose (UA) Urine Ketones Urine Blood Urine Nitrate Urine Bilirubin Urine Urobilinogen Urine Leukocytes Urine RBC Urine WBC Ur Squamous Epith Cells Ur Culture Indicated? Blood Type Antibody Screen Crossmatch 06/04/17 06/04/17 06/04/17 14:28 14:28 15:30 WBC RBC Hgb Hct MCV MCH MCHC RDW Plt Count MPV Neut % (Auto) Lymph % (Auto) [place] % (Auto) Eos % (Auto) Baso % (Auto) Neut # (Auto) Lymph # (Auto) [place] # (Auto) Eos # (Auto) Baso # (Auto) Immature Gran % Nucleated RBC % Immature Gran # Nucleated RBCs # Immature Plt Fraction INR PT Patient/Control Mix Circ Anticoag PTT Patient Temperature ABG pH 7.388 7.444 ABG pH at Pt Temp ABG pCO2 34.8 L 31.1 L ABG pCO2 at Pt Temp ABG pO2 142.0 H 162.0 H ABG pO2 at Pt Temp ABG HCO3 21.5 22.8 ABG Total CO2 19.3 L 19.1 L ABG O2 Saturation 98.7 99.1 ABG Base Excess -3.5 L -1.9 ABG Sodium VBG pH VBG pCO2 VBG pO2 VBG HCO3 VBG Total CO2 VBG O2 Saturation VBG Base Excess Hemoglobin 9.1 L 10.9 L Hematocrit 28.2 L 33.7 L Ionized Calcium FiO2 Sodium Potassium 3.6 4.8 Chloride Carbon Dioxide Anion Gap BUN Creatinine GFR Calculation BUN/Creatinine Ratio Glucose 222 H 225 H POC Glucose Calculated Osmolality Calcium Venous Ioniz Calcium Magnesium Total Bilirubin AST ALT Alkaline Phosphatase Total Creatine Kinase 1038 H CK-MB (CK-2) 44.3 H CK and CKMB Interp 4.3 Troponin I 26.100 H Total Protein Albumin Globulin Albumin/Globulin Ratio Urine Color Urine Appearance Urine pH Ur Specific [place] Urine Protein Urine Glucose (UA) Urine Ketones Urine Blood Urine Nitrate Urine Bilirubin Urine Urobilinogen Urine Leukocytes Urine RBC Urine WBC Ur Squamous Epith Cells Ur Culture Indicated? Blood Type Antibody Screen Crossmatch 06/04/17 16:31 WBC RBC Hgb Hct MCV MCH MCHC RDW Plt Count MPV Neut % (Auto) Lymph % (Auto) [place] % (Auto) Eos % (Auto) Baso % (Auto) Neut # (Auto) Lymph # (Auto) [place] # (Auto) Eos # (Auto) Baso # (Auto) Immature Gran % Nucleated RBC % Immature Gran # Nucleated RBCs # Immature Plt Fraction INR PT Patient/Control Mix Circ Anticoag PTT Patient Temperature ABG pH 7.535 H ABG pH at Pt Temp ABG pCO2 26.6 L ABG pCO2 at Pt Temp ABG pO2 131.3 H ABG pO2 at Pt Temp ABG HCO3 22.0 ABG Total CO2 22.8 L ABG O2 Saturation 98.2 ABG Base Excess 0.3 ABG Sodium VBG pH VBG pCO2 VBG pO2 VBG HCO3 VBG Total CO2 VBG O2 Saturation VBG Base Excess Hemoglobin 11.2 L Hematocrit 33.0 L Ionized Calcium FiO2 Sodium Potassium 3.7 Chloride Carbon Dioxide Anion Gap BUN Creatinine GFR Calculation BUN/Creatinine Ratio Glucose 224 H POC Glucose Calculated Osmolality Calcium Venous Ioniz Calcium Magnesium Total Bilirubin AST ALT Alkaline Phosphatase Total Creatine Kinase CK-MB (CK-2) CK and CKMB Interp Troponin I Total Protein Albumin Globulin Albumin/Globulin Ratio Urine Color Urine Appearance Urine pH Ur Specific [place] Urine Protein Urine Glucose (UA) Urine Ketones Urine Blood Urine Nitrate Urine Bilirubin Urine Urobilinogen Urine Leukocytes Urine RBC Urine WBC Ur Squamous Epith Cells Ur Culture Indicated? Blood Type Antibody Screen Crossmatch - EKG EKG results: interpreted by me Quality Measures - VTE Contraindication to Pharmacological VTE Prophylaxis: High Risk of Bleeding Specialty Discharge - Follow Up or Referrals Follow up with: Gianni Tapia MD [Physician] - Santiago Sanz MD [Primary Care Provider] - Alvin Martin MD [Physician] -
[2017-06-04] MEDS: POTASSIUM CHLORIDE RIDER 10 MEQ in PREMIX 1 EACH IV PRN ×3 (18:17→23:58)
[2017-06-04 18:38] LABS: ABG Base Excess 1.3 MMOL/L (-2.5-2.5); ABG HCO3 23.9 MMOL/L (20-26); ABG Oxygen Saturation 98.1 % (95-100); ABG PCO2 30.8 MM HG (35-48); ABG PH 7.507 (7.35-7.45); ABG PO2 148.4 MM HG (80-95); ABG TCO2 24.8 MMOL/L (23-27); Glucose Heart Surgery 218 MG/DL (74-106); Potassium Heart/CVR 3.8 MMOL/L (3.5-5.1)
[2017-06-04] MEDS: MORPHINE 2 MG/1 ML SYRINGE IV PRN (19:29)
[2017-06-04] MEDS: KETOROLAC 15 MG/1 ML VIAL IV SCH (20:08)
[2017-06-04] MEDS: CEFUROXIME INJ 1,500 MG in SODIUM CHLORIDE 0.9% 100 ML IV SCH (21:08)
[2017-06-04] MEDS: MIDAZOLAM 2 MG/2 ML VIAL IV PRN ×2 (21:32→23:53)
[2017-06-04] MEDS: SPIRONOLACTONE 25 MG TABLET PO SCH (21:40)
[2017-06-04] MEDS: ASPIRIN EC 81 MG TABLET PO SCH (21:40)
[2017-06-04] MEDS: SODIUM CHLORIDE 0.9% 1,000 ML IV SCH (21:41)
[2017-06-04] MEDS: VITAMIN E 400 UNIT CAPSULE PO SCH (21:41)
[2017-06-04 22:36] LABS: ABG Base Excess 1.4 MMOL/L (-2.5-2.5); ABG HCO3 25.7 MMOL/L (20-26); ABG Oxygen Saturation 99.2 % (95-100); ABG PCO2 31.4 MM HG (35-48); ABG PH 7.496 (7.35-7.45); ABG TCO2 22.2 MMOL/L (23-27); Glucose Heart Surgery 107 MG/DL (74-106); Potassium Heart/CVR 3.6 MMOL/L (3.5-5.1)
[2017-06-05 01:02] LABS: CKMB % 2.7 %
[2017-06-05 01:05] LABS: Troponin I Only 31.2 NG/ML (0.00-0.045)
[2017-06-05] MEDS ORDERED: FUROSEMIDE 40 MG/4 ML VIAL IV ONE ×2 (02:01→16:03)
[2017-06-05] MEDS: KETOROLAC 15 MG/1 ML VIAL IV SCH ×4 (02:07→21:41)
[2017-06-05 03:31] LABS: ABG Base Excess 0.6 MMOL/L (-2.5-2.5); ABG Oxygen Saturation 99.1 % (95-100); ABG PH 7.459 (7.35-7.45); ABG TCO2 22.2 MMOL/L (23-27); Glucose Heart Surgery 89 MG/DL (74-106); Hematocrit Heart Surgery 27.4 PERCENT (37-47); Hemoglobin Heart Surgery 8.8 G/DL (12.0-16.0); Potassium Heart/CVR 3.9 MMOL/L (3.5-5.1)
[2017-06-05 03:43] LABS: Hemoglobin 8.9 GM/DL (12.0-16.0); Immature Granulocytes % 0.4 %; Immature Granulocytes Absolute 0.04 #; Lymphocytes # 0.6 10*3/uL (1.4-4.0); Lymphocytes % 6.1 % (21.3-54.2); Mean Corpuscular HGB Conc 34.2 GM/DL (32-36); Mean Corpuscular Hemoglobin 28 PG (27-34); Mean Corpuscular Volume 82.3 FL (87-102); Mean Platelet Volume 10.1 FL (9.6-12.0); Monocytes % 9.4 % (1.7-12.7); Neutrophils # 8.9 10*3/uL (1.4-7.4); Neutrophils % 84.1 % (38.7-73.9); Platelet Count 100 T/CUMM (130-400); Red Blood Count 3.16 MC/CUMM (3.8-5.5); White Blood Count 10.6 T/CUMM (4-12)
[2017-06-05 04:09] LABS: Albumin 3.2 G/DL (3.4-5.0); Bilirubin,Direct 0.27 MG/DL (0.0-0.20); Bilirubin,Total 0.9 MG/DL (0.2-1.0); Calcium 8.2 MG/DL (8.5-10.1); Magnesium 1.8 MG/DL (1.8-2.4); Osmolality,Calculated 284.8 MOS/KG (273-304)
[2017-06-05] MEDS: MIDAZOLAM 2 MG/2 ML VIAL IV PRN (05:29)
[2017-06-05] MEDS: MORPHINE 2 MG/1 ML SYRINGE IV PRN (05:46)
[2017-06-05 06:04] LABS: ABG Base Excess 0.5 MMOL/L (-2.5-2.5); ABG HCO3 23.2 MMOL/L (20-26); ABG Oxygen Saturation 98.2 % (95-100); ABG PCO2 31.2 MM HG (35-48); ABG PO2 150.7 MM HG (80-95); ABG TCO2 24.2 MMOL/L (23-27); Glucose Heart Surgery 113 MG/DL (74-106); Hemoglobin Heart Surgery 11.2 G/DL (12.0-16.0); Potassium Heart/CVR 3.7 MMOL/L (3.5-5.1)
[2017-06-05] MEDS: POTASSIUM CHLORIDE RIDER 20 MEQ in PREMIX 1 EACH IV PRN ×3 (06:08→12:45)
[2017-06-05] MEDS: POTASSIUM CHLORIDE RIDER 10 MEQ in PREMIX 1 EACH IV PRN (06:41)
[2017-06-05 07:49] LABS: CKMB % 2.6 %; Troponin I Only 25.7 NG/ML (0.00-0.045)
--- NOTE | 2017-06-05 07:55 | EKG Report ---
Stationary ECG Study [facility] Test Date: 06/05/2017 7:56:17 AM Pat Name: KWABENA BOSS Department: Room: 104 Gender: F Pipe [employer] Marine: DEYANIRA : 1945 Requested by: Gianni Conner Order Number: [id number] Reading MD: ALEJANDRA SALAZAR Intervals [place] Rate: 69 P: 62 MS: 202 QRS: 81 QRSD: 92 T: 34 QT: 416 QTc: 435 Interpretive Statements SINUS RHYTHM NONSPECIFIC T-WAVE ABNORMALITY Electronically Signed On 06-05-17 18:52:09 CDT by ALEJANDRA SALAZAR [email or web address]
--- NOTE | 2017-06-05 08:01 | XRay Report ---
Exam: XR chest 1V portable Date: 06/05/2017 4:00 AM Indication: Shortness of breath Comparison: None Technical: AP Findings: Nasogastric tube and endotracheal tube right-sided [place] catheter and right IJ catheter are present. Sternotomy wires are present. Bibasilar atelectatic change. A thoracotomy tube is present left base with mediastinal drains present centrally as well. No pneumothorax. ASVD is present. Impression: 1. Stable appearance of the life support tubes 2. Bibasilar atelectasis and tiny effusions 3. Previous sternotomy 4. No significant interval change. PROCEDURE INTERPRETED AT [facility] DEPARTMENT OF RADIOLOGY Final Report Signed by: Dr. Johnathon Sotomayor
[2017-06-05 08:04] LABS: ABG Base Excess 1.6 MMOL/L (-2.5-2.5); ABG HCO3 25.9 MMOL/L (20-26); ABG Oxygen Saturation 98.4 % (95-100); ABG PCO2 33.3 MM HG (35-48); ABG PH 7.478 (7.35-7.45); Glucose Heart Surgery 125 MG/DL (74-106); Hematocrit Heart Surgery 34.1 PERCENT (37-47); Potassium Heart/CVR 4.2 MMOL/L (3.5-5.1)
[2017-06-05] MEDS: CHLORHEXIDINE 0.12% ORAL RINSE 60 ML BOTTLE SWISH/SPIT SCH ×2 (08:16→21:41)
--- NOTE | 2017-06-05 08:31 | Cardiothoracic Progress Note ---
Cardiothoracic Subjective Interval history: Patient is awake and alert and responsive. She does remain intubated with the intra-aortic balloon still in place. She is currently on CPAP and appears to be doing fairly well. Balloon has been turned down to 1-3. Vital signs have been stable through the night and her cardiac output has remained around 3 L/ min. Her troponin peaked at 34 but is trending down fairly rapidly. She is clearly had some myocardial injury although her electrocardiogram this morning looked basically okay. Her hemodynamics appear to be adequate. Urine output has been good and creatinine is within normal limits. Arterial blood gases have been excellent through the night. I plan will be to extubate her as tolerated and probably to remove the intra-aortic balloon pump later this morning. We will plan to keep her in intensive care at least another 24 hours because of her stormy operative and early postoperative course. Overall however progress appears satisfactory this morning. Exam (Progress Note) - Constitutional Vitals: Period Temp Pulse Resp BP Sys/Morales Pulse Ox Last 24 Hr 96.1 F-100.0 F 67-103 10-132 89-155/35-82 96-100 Result/EKG - Labs CBC & BMP: 06/05/17 03:20 06/05/17 03:20 Labs: Laboratory Results - last 24 hr 06/03/17 06/04/17 06/04/17 10:12 00:12 09:10 WBC RBC Hgb Hct MCV MCH MCHC RDW Plt Count MPV Neut % (Auto) Lymph % (Auto) Dillon % (Auto) Eos % (Auto) Baso % (Auto) Neut # (Auto) Lymph # (Auto) Dillon # (Auto) Eos # (Auto) Baso # (Auto) Immature Gran % Nucleated RBC % Immature Gran # Nucleated RBCs # Immature Plt Fraction INR PT Patient/Control Mix Circ Anticoag PTT Patient Temperature 34 ABG pH ABG pH at Pt Temp 7.427 ABG pCO2 ABG pCO2 at Pt Temp 32.4 ABG pO2 ABG pO2 at Pt Temp 35.6 ABG HCO3 ABG Total CO2 ABG O2 Saturation ABG Base Excess ABG Sodium 131 L VBG pH 7.384 VBG pCO2 37.5 L VBG pO2 43.8 H VBG HCO3 22.2 L VBG Total CO2 20.9 VBG O2 Saturation 77.6 VBG Base Excess -2.3 L Hemoglobin 8.2 L Hematocrit 25.4 L Potassium 4.7 Glucose 371 H Ionized Calcium FiO2 80.00 Sodium Chloride Carbon Dioxide Anion Gap BUN Creatinine GFR Calculation BUN/Creatinine Ratio POC Glucose Calculated Osmolality Calcium Venous Ioniz Calcium 0.93 L Magnesium Total Bilirubin Direct Bilirubin AST ALT Alkaline Phosphatase Total Creatine Kinase 1365 H CK-MB (CK-2) 36.8 H CK and CKMB Interp 2.7 Troponin I 31.200 H Total Protein Albumin Globulin Albumin/Globulin Ratio Blood Type A POSITIVE Antibody Screen Negative Crossmatch See Detail 06/04/17 06/04/17 06/04/17 09:41 10:14 11:50 WBC RBC Hgb Hct MCV MCH MCHC RDW Plt Count MPV Neut % (Auto) Lymph % (Auto) Dillon % (Auto) Eos % (Auto) Baso % (Auto) Neut # (Auto) Lymph # (Auto) Dillon # (Auto) Eos # (Auto) Baso # (Auto) Immature Gran % Nucleated RBC % Immature Gran # Nucleated RBCs # Immature Plt Fraction INR PT Patient/Control Mix Circ Anticoag PTT Patient Temperature 33 35 37 ABG pH ABG pH at Pt Temp 7.512 7.518 7.327 ABG pCO2 ABG pCO2 at Pt Temp 26.3 26.8 35.4 ABG pO2 ABG pO2 at Pt Temp 33.1 35.9 38.3 ABG HCO3 ABG Total CO2 ABG O2 Saturation ABG Base Excess ABG Sodium 128 L 131 L 136 VBG pH 7.453 7.488 7.327 VBG pCO2 31.9 L 29.5 L 35.4 L VBG pO2 43.6 H 41.2 H 38.3 VBG HCO3 23.2 L 23.7 L 18.4 L VBG Total CO2 20.9 21.2 17.8 VBG O2 Saturation 80.4 78.7 64.5 VBG Base Excess -1.1 L -0.6 L -6.8 L Hemoglobin 7.7 L 7.1 L 6.4 L* Hematocrit 24.0 L 22.1 L 20.0 L Potassium 5.3 H 5.4 H 4.4 Glucose 361 H 306 H 306 H Ionized Calcium FiO2 80.00 80.00 80.00 Sodium Chloride Carbon Dioxide Anion Gap BUN Creatinine GFR Calculation BUN/Creatinine Ratio POC Glucose Calculated Osmolality Calcium Venous Ioniz Calcium 0.88 L 0.84 L 1.49 H Magnesium Total Bilirubin Direct Bilirubin AST ALT Alkaline Phosphatase Total Creatine Kinase CK-MB (CK-2) CK and CKMB Interp Troponin I Total Protein Albumin Globulin Albumin/Globulin Ratio Blood Type Antibody Screen Crossmatch 06/04/17 06/04/17 06/04/17 12:19 12:39 12:39 WBC RBC Hgb Hct MCV MCH MCHC RDW Plt Count 67 L MPV Neut % (Auto) Lymph % (Auto) Dillon % (Auto) Eos % (Auto) Baso % (Auto) Neut # (Auto) Lymph # (Auto) Dillon # (Auto) Eos # (Auto) Baso # (Auto) Immature Gran % Nucleated RBC % Immature Gran # Nucleated RBCs # Immature Plt Fraction INR PT Patient/Control Mix Circ Anticoag PTT Patient Temperature 37 37 ABG pH Cancelled 7.375 ABG pH at Pt Temp 7.474 7.375 ABG pCO2 Cancelled 37.2 ABG pCO2 at Pt Temp 34.1 37.2 ABG pO2 Cancelled 267.0 H ABG pO2 at Pt Temp 40.9 267.0 ABG HCO3 Cancelled 21.9 ABG Total CO2 Cancelled 20.4 L ABG O2 Saturation Cancelled 99.3 ABG Base Excess Cancelled -3.0 L ABG Sodium 139 141 VBG pH 7.474 VBG pCO2 34.1 L VBG pO2 40.9 H VBG HCO3 25.6 VBG Total CO2 23.3 VBG O2 Saturation 79.7 VBG Base Excess 1.6 Hemoglobin 8.1 L 8.0 L Hematocrit 25.3 L 25.0 L Potassium 3.4 L 3.6 Glucose 314 H 259 H Ionized Calcium Cancelled 1.22 FiO2 Cancelled Sodium Chloride Carbon Dioxide Anion Gap BUN Creatinine GFR Calculation BUN/Creatinine Ratio POC Glucose Calculated Osmolality Calcium Venous Ioniz Calcium 1.25 Magnesium Total Bilirubin Direct Bilirubin AST ALT Alkaline Phosphatase Total Creatine Kinase CK-MB (CK-2) CK and CKMB Interp Troponin I Total Protein Albumin Globulin Albumin/Globulin Ratio Blood Type Antibody Screen Crossmatch 06/04/17 06/04/17 06/04/17 14:28 14:28 14:28 WBC 8.0 RBC 3.31 L D Hgb 9.1 L Hct 26.9 L MCV 81.3 L MCH 28 MCHC 33.8 RDW 19.3 H Plt Count 85 L D MPV 9.5 L Neut % (Auto) 84.9 H Lymph % (Auto) 4.8 L Dillon % (Auto) 9.1 Eos % (Auto) 0.3 Baso % (Auto) 0.1 Neut # (Auto) 6.8 Lymph # (Auto) 0.4 L Dillon # (Auto) 0.7 Eos # (Auto) 0.0 Baso # (Auto) 0.0 Immature Gran % 0.8 Nucleated RBC % 0.0 Immature Gran # 0.06 Nucleated RBCs # 0.00 Immature Plt Fraction 0.0 INR 1.2 PT Patient/Control Mix 13.2 D Circ Anticoag PTT 28.4 Patient Temperature ABG pH ABG pH at Pt Temp ABG pCO2 ABG pCO2 at Pt Temp ABG pO2 ABG pO2 at Pt Temp ABG HCO3 ABG Total CO2 ABG O2 Saturation ABG Base Excess ABG Sodium VBG pH VBG pCO2 VBG pO2 VBG HCO3 VBG Total CO2 VBG O2 Saturation VBG Base Excess Hemoglobin Hematocrit Potassium 3.7 Glucose 240 H Ionized Calcium FiO2 Sodium 147 H Chloride 110 H Carbon Dioxide 22 Anion Gap 18.7 H BUN 13 Creatinine 1.00 GFR Calculation 53 BUN/Creatinine Ratio 13.00 POC Glucose Calculated Osmolality 299.4 Calcium 8.3 L Venous Ioniz Calcium Magnesium 2.1 Total Bilirubin 1.20 H Direct Bilirubin AST 82 H ALT 20 Alkaline Phosphatase 42 L Total Creatine Kinase CK-MB (CK-2) CK and CKMB Interp Troponin I Total Protein 4.1 L Albumin 2.3 L Globulin 1.8 L Albumin/Globulin Ratio 1.2 Blood Type Antibody Screen Crossmatch 06/04/17 06/04/17 06/04/17 14:28 14:28 15:30 WBC RBC Hgb Hct MCV MCH MCHC RDW Plt Count MPV Neut % (Auto) Lymph % (Auto) Dillon % (Auto) Eos % (Auto) Baso % (Auto) Neut # (Auto) Lymph # (Auto) Dillon # (Auto) Eos # (Auto) Baso # (Auto) Immature Gran % Nucleated RBC % Immature Gran # Nucleated RBCs # Immature Plt Fraction INR PT Patient/Control Mix Circ Anticoag PTT Patient Temperature ABG pH 7.388 7.444 ABG pH at Pt Temp ABG pCO2 34.8 L 31.1 L ABG pCO2 at Pt Temp ABG pO2 142.0 H 162.0 H ABG pO2 at Pt Temp ABG HCO3 21.5 22.8 ABG Total CO2 19.3 L 19.1 L ABG O2 Saturation 98.7 99.1 ABG Base Excess -3.5 L -1.9 ABG Sodium VBG pH VBG pCO2 VBG pO2 VBG HCO3 VBG Total CO2 VBG O2 Saturation VBG Base Excess Hemoglobin 9.1 L 10.9 L Hematocrit 28.2 L 33.7 L Potassium 3.6 4.8 Glucose 222 H 225 H Ionized Calcium FiO2 Sodium Chloride Carbon Dioxide Anion Gap BUN Creatinine GFR Calculation BUN/Creatinine Ratio POC Glucose Calculated Osmolality Calcium Venous Ioniz Calcium Magnesium Total Bilirubin Direct Bilirubin AST ALT Alkaline Phosphatase Total Creatine Kinase 1038 H D CK-MB (CK-2) 44.3 H D CK and CKMB Interp 4.3 Troponin I 26.100 H Total Protein Albumin Globulin Albumin/Globulin Ratio Blood Type Antibody Screen Crossmatch 06/04/17 06/04/17 06/04/17 16:31 17:21 18:12 WBC RBC Hgb Hct MCV MCH MCHC RDW Plt Count MPV Neut % (Auto) Lymph % (Auto) Dillon % (Auto) Eos % (Auto) Baso % (Auto) Neut # (Auto) Lymph # (Auto) Dillon # (Auto) Eos # (Auto) Baso # (Auto) Immature Gran % Nucleated RBC % Immature Gran # Nucleated RBCs # Immature Plt Fraction INR PT Patient/Control Mix Circ Anticoag PTT Patient Temperature ABG pH 7.535 H ABG pH at Pt Temp ABG pCO2 26.6 L ABG pCO2 at Pt Temp ABG pO2 131.3 H ABG pO2 at Pt Temp ABG HCO3 22.0 ABG Total CO2 22.8 L ABG O2 Saturation 98.2 ABG Base Excess 0.3 ABG Sodium VBG pH VBG pCO2 VBG pO2 VBG HCO3 VBG Total CO2 VBG O2 Saturation VBG Base Excess Hemoglobin 11.2 L Hematocrit 33.0 L Potassium 3.7 Glucose 224 H Ionized Calcium FiO2 Sodium Chloride Carbon Dioxide Anion Gap BUN Creatinine GFR Calculation BUN/Creatinine Ratio POC Glucose 277 H 263 H Calculated Osmolality Calcium Venous Ioniz Calcium Magnesium Total Bilirubin Direct Bilirubin AST ALT Alkaline Phosphatase Total Creatine Kinase CK-MB (CK-2) CK and CKMB Interp Troponin I Total Protein Albumin Globulin Albumin/Globulin Ratio Blood Type Antibody Screen Crossmatch 06/04/17 06/04/17 06/04/17 18:30 19:03 20:00 WBC RBC Hgb Hct MCV MCH MCHC RDW Plt Count MPV Neut % (Auto) Lymph % (Auto) Dillon % (Auto) Eos % (Auto) Baso % (Auto) Neut # (Auto) Lymph # (Auto) Dillon # (Auto) Eos # (Auto) Baso # (Auto) Immature Gran % Nucleated RBC % Immature Gran # Nucleated RBCs # Immature Plt Fraction INR PT Patient/Control Mix Circ Anticoag PTT Patient Temperature ABG pH 7.507 H ABG pH at Pt Temp ABG pCO2 30.8 L ABG pCO2 at Pt Temp ABG pO2 148.4 H ABG pO2 at Pt Temp ABG HCO3 23.9 ABG Total CO2 24.8 ABG O2 Saturation 98.1 ABG Base Excess 1.3 ABG Sodium VBG pH VBG pCO2 VBG pO2 VBG HCO3 VBG Total CO2 VBG O2 Saturation VBG Base Excess Hemoglobin 11.0 L Hematocrit 32.0 L Potassium 3.8 Glucose 218 H Ionized Calcium FiO2 Sodium Chloride Carbon Dioxide Anion Gap BUN Creatinine GFR Calculation BUN/Creatinine Ratio POC Glucose 215 H 186 H Calculated Osmolality Calcium Venous Ioniz Calcium Magnesium Total Bilirubin Direct Bilirubin AST ALT Alkaline Phosphatase Total Creatine Kinase CK-MB (CK-2) CK and CKMB Interp Troponin I Total Protein Albumin Globulin Albumin/Globulin Ratio Blood Type Antibody Screen Crossmatch 06/04/17 06/04/17 06/04/17 21:03 21:53 22:26 WBC RBC Hgb Hct MCV MCH MCHC RDW Plt Count MPV Neut % (Auto) Lymph % (Auto) Dillon % (Auto) Eos % (Auto) Baso % (Auto) Neut # (Auto) Lymph # (Auto) Dillon # (Auto) Eos # (Auto) Baso # (Auto) Immature Gran % Nucleated RBC % Immature Gran # Nucleated RBCs # Immature Plt Fraction INR PT Patient/Control Mix Circ Anticoag PTT Patient Temperature ABG pH 7.496 H ABG pH at Pt Temp ABG pCO2 31.4 L ABG pCO2 at Pt Temp ABG pO2 165.0 H ABG pO2 at Pt Temp ABG HCO3 25.7 ABG Total CO2 22.2 L ABG O2 Saturation 99.2 ABG Base Excess 1.4 ABG Sodium VBG pH VBG pCO2 VBG pO2 VBG HCO3 VBG Total CO2 VBG O2 Saturation VBG Base Excess Hemoglobin 9.0 L Hematocrit 28.0 L Potassium 3.6 Glucose 107 H Ionized Calcium FiO2 Sodium Chloride Carbon Dioxide Anion Gap BUN Creatinine GFR Calculation BUN/Creatinine Ratio POC Glucose 183 H 132 H Calculated Osmolality Calcium Venous Ioniz Calcium Magnesium Total Bilirubin Direct Bilirubin AST ALT Alkaline Phosphatase Total Creatine Kinase CK-MB (CK-2) CK and CKMB Interp Troponin I Total Protein Albumin Globulin Albumin/Globulin Ratio Blood Type Antibody Screen Crossmatch 06/04/17 06/05/17 06/05/17 22:58 00:03 00:04 WBC RBC Hgb Hct MCV MCH MCHC RDW Plt Count MPV Neut % (Auto) Lymph % (Auto) Dillon % (Auto) Eos % (Auto) Baso % (Auto) Neut # (Auto) Lymph # (Auto) Dillon # (Auto) Eos # (Auto) Baso # (Auto) Immature Gran % Nucleated RBC % Immature Gran # Nucleated RBCs # Immature Plt Fraction INR PT Patient/Control Mix Circ Anticoag PTT Patient Temperature ABG pH ABG pH at Pt Temp ABG pCO2 ABG pCO2 at Pt Temp ABG pO2 ABG pO2 at Pt Temp ABG HCO3 ABG Total CO2 ABG O2 Saturation ABG Base Excess ABG Sodium VBG pH VBG pCO2 VBG pO2 VBG HCO3 VBG Total CO2 VBG O2 Saturation VBG Base Excess Hemoglobin Hematocrit Potassium Glucose Ionized Calcium FiO2 Sodium Chloride Carbon Dioxide Anion Gap BUN Creatinine GFR Calculation BUN/Creatinine Ratio POC Glucose 121 H 69 L 82 Calculated Osmolality Calcium Venous Ioniz Calcium Magnesium Total Bilirubin Direct Bilirubin AST ALT Alkaline Phosphatase Total Creatine Kinase CK-MB (CK-2) CK and CKMB Interp Troponin I Total Protein Albumin Globulin Albumin/Globulin Ratio Blood Type Antibody Screen Crossmatch 06/05/17 06/05/17 06/05/17 01:00 02:06 03:06 WBC RBC Hgb Hct MCV MCH MCHC RDW Plt Count MPV Neut % (Auto) Lymph % (Auto) Dillon % (Auto) Eos % (Auto) Baso % (Auto) Neut # (Auto) Lymph # (Auto) Dillon # (Auto) Eos # (Auto) Baso # (Auto) Immature Gran % Nucleated RBC % Immature Gran # Nucleated RBCs # Immature Plt Fraction INR PT Patient/Control Mix Circ Anticoag PTT Patient Temperature ABG pH ABG pH at Pt Temp ABG pCO2 ABG pCO2 at Pt Temp ABG pO2 ABG pO2 at Pt Temp ABG HCO3 ABG Total CO2 ABG O2 Saturation ABG Base Excess ABG Sodium VBG pH VBG pCO2 VBG pO2 VBG HCO3 VBG Total CO2 VBG O2 Saturation VBG Base Excess Hemoglobin Hematocrit Potassium Glucose Ionized Calcium FiO2 Sodium Chloride Carbon Dioxide Anion Gap BUN Creatinine GFR Calculation BUN/Creatinine Ratio POC Glucose 108 H 103 92 Calculated Osmolality Calcium Venous Ioniz Calcium Magnesium Total Bilirubin Direct Bilirubin AST ALT Alkaline Phosphatase Total Creatine Kinase CK-MB (CK-2) CK and CKMB Interp Troponin I Total Protein Albumin Globulin Albumin/Globulin Ratio Blood Type Antibody Screen Crossmatch 06/05/17 06/05/17 06/05/17 03:20 03:20 03:20 WBC 10.6 D RBC 3.16 L Hgb 8.9 L Hct 26.0 L MCV 82.3 L MCH 28 MCHC 34.2 RDW 18.0 H Plt Count 100 L MPV 10.1 Neut % (Auto) 84.1 H Lymph % (Auto) 6.1 L Dillon % (Auto) 9.4 Eos % (Auto) 0.0 Baso % (Auto) 0.0 Neut # (Auto) 8.9 H Lymph # (Auto) 0.6 L Dillon # (Auto) 1.0 H Eos # (Auto) 0.0 Baso # (Auto) 0.0 Immature Gran % 0.4 Nucleated RBC % 0.0 Immature Gran # 0.04 Nucleated RBCs # 0.00 Immature Plt Fraction 0.0 INR PT Patient/Control Mix Circ Anticoag PTT Patient Temperature ABG pH 7.459 H ABG pH at Pt Temp ABG pCO2 34.0 L ABG pCO2 at Pt Temp ABG pO2 160.0 H ABG pO2 at Pt Temp ABG HCO3 25.0 ABG Total CO2 22.2 L ABG O2 Saturation 99.1 ABG Base Excess 0.6 ABG Sodium VBG pH VBG pCO2 VBG pO2 VBG HCO3 VBG Total CO2 VBG O2 Saturation VBG Base Excess Hemoglobin 8.8 L Hematocrit 27.4 L Potassium 4.0 3.9 Glucose 87 89 Ionized Calcium FiO2 Sodium 144 Chloride 112 H Carbon Dioxide 27 Anion Gap 9.0 BUN 12 Creatinine 0.90 GFR Calculation 60 BUN/Creatinine Ratio 13.00 POC Glucose Calculated Osmolality 284.8 Calcium 8.2 L Venous Ioniz Calcium Magnesium 1.8 Total Bilirubin 0.90 Direct Bilirubin 0.270 H AST 102 H ALT 26 Alkaline Phosphatase 39 L Total Creatine Kinase CK-MB (CK-2) CK and CKMB Interp Troponin I Total Protein 5.0 L Albumin 3.2 L Globulin 1.8 L Albumin/Globulin Ratio 1.7 Blood Type Antibody Screen Crossmatch 06/05/17 06/05/17 06/05/17 03:20 03:55 04:49 WBC RBC Hgb Hct MCV MCH MCHC RDW Plt Count MPV Neut % (Auto) Lymph % (Auto) Dillon % (Auto) Eos % (Auto) Baso % (Auto) Neut # (Auto) Lymph # (Auto) Dillon # (Auto) Eos # (Auto) Baso # (Auto) Immature Gran % Nucleated RBC % Immature Gran # Nucleated RBCs # Immature Plt Fraction INR PT Patient/Control Mix Circ Anticoag PTT Patient Temperature ABG pH ABG pH at Pt Temp ABG pCO2 ABG pCO2 at Pt Temp ABG pO2 ABG pO2 at Pt Temp ABG HCO3 ABG Total CO2 ABG O2 Saturation ABG Base Excess ABG Sodium VBG pH VBG pCO2 VBG pO2 VBG HCO3 VBG Total CO2 VBG O2 Saturation VBG Base Excess Hemoglobin Hematocrit Potassium Glucose Ionized Calcium FiO2 Sodium Chloride Carbon Dioxide Anion Gap BUN Creatinine GFR Calculation BUN/Creatinine Ratio POC Glucose 95 111 H Calculated Osmolality Calcium Venous Ioniz Calcium Magnesium Total Bilirubin Direct Bilirubin AST ALT Alkaline Phosphatase Total Creatine Kinase 1244 H CK-MB (CK-2) 32.0 H D CK and CKMB Interp 2.6 Troponin I 25.700 H Total Protein Albumin Globulin Albumin/Globulin Ratio Blood Type Antibody Screen Crossmatch 06/05/17 06/05/17 06/05/17 05:50 05:55 07:14 WBC RBC Hgb Hct MCV MCH MCHC RDW Plt Count MPV Neut % (Auto) Lymph % (Auto) Dillon % (Auto) Eos % (Auto) Baso % (Auto) Neut # (Auto) Lymph # (Auto) Dillon # (Auto) Eos # (Auto) Baso # (Auto) Immature Gran % Nucleated RBC % Immature Gran # Nucleated RBCs # Immature Plt Fraction INR PT Patient/Control Mix Circ Anticoag PTT Patient Temperature ABG pH 7.490 H ABG pH at Pt Temp ABG pCO2 31.2 L ABG pCO2 at Pt Temp ABG pO2 150.7 H ABG pO2 at Pt Temp ABG HCO3 23.2 ABG Total CO2 24.2 ABG O2 Saturation 98.2 ABG Base Excess 0.5 ABG Sodium VBG pH VBG pCO2 VBG pO2 VBG HCO3 VBG Total CO2 VBG O2 Saturation VBG Base Excess Hemoglobin 11.2 L Hematocrit 33.0 L Potassium 3.7 Glucose 113 H Ionized Calcium FiO2 Sodium Chloride Carbon Dioxide Anion Gap BUN Creatinine GFR Calculation BUN/Creatinine Ratio POC Glucose 122 H 139 H Calculated Osmolality Calcium Venous Ioniz Calcium Magnesium Total Bilirubin Direct Bilirubin AST ALT Alkaline Phosphatase Total Creatine Kinase CK-MB (CK-2) CK and CKMB Interp Troponin I Total Protein Albumin Globulin Albumin/Globulin Ratio Blood Type Antibody Screen Crossmatch 06/05/17 08:05 WBC RBC Hgb Hct MCV MCH MCHC RDW Plt Count MPV Neut % (Auto) Lymph % (Auto) Dillon % (Auto) Eos % (Auto) Baso % (Auto) Neut # (Auto) Lymph # (Auto) Dillon # (Auto) Eos # (Auto) Baso # (Auto) Immature Gran % Nucleated RBC % Immature Gran # Nucleated RBCs # Immature Plt Fraction INR PT Patient/Control Mix Circ Anticoag PTT Patient Temperature ABG pH 7.478 H ABG pH at Pt Temp ABG pCO2 33.3 L ABG pCO2 at Pt Temp ABG pO2 110.0 H ABG pO2 at Pt Temp ABG HCO3 25.9 ABG Total CO2 22.0 L ABG O2 Saturation 98.4 ABG Base Excess 1.6 ABG Sodium VBG pH VBG pCO2 VBG pO2 VBG HCO3 VBG Total CO2 VBG O2 Saturation VBG Base Excess Hemoglobin 11.0 L Hematocrit 34.1 L Potassium 4.2 Glucose 125 H Ionized Calcium FiO2 Sodium Chloride Carbon Dioxide Anion Gap BUN Creatinine GFR Calculation BUN/Creatinine Ratio POC Glucose Calculated Osmolality Calcium Venous Ioniz Calcium Magnesium Total Bilirubin Direct Bilirubin AST ALT Alkaline Phosphatase Total Creatine Kinase CK-MB (CK-2) CK and CKMB Interp Troponin I Total Protein Albumin Globulin Albumin/Globulin Ratio Blood Type Antibody Screen Crossmatch Quality Measures - VTE Contraindication to Pharmacological VTE Prophylaxis: High Risk of Bleeding Specialty Discharge - Follow Up or Referrals Follow up with: Gianni Tapia MD [Physician] - Santiago Sanz MD [Primary Care Provider] - Alvin Martin MD [Physician] -
[2017-06-05 08:54] LABS: ABG Base Excess 1.6 MMOL/L (-2.5-2.5); ABG HCO3 25.5 MMOL/L (20-26); ABG Oxygen Saturation 97.7 % (95-100); ABG PCO2 37.6 MM HG (35-48); ABG PO2 109.4 MM HG (80-95); ABG TCO2 26.7 MMOL/L (23-27); Glucose Heart Surgery 122 MG/DL (74-106); Hemoglobin Heart Surgery 11.2 G/DL (12.0-16.0)
[2017-06-05 10:09] LABS: ABG Base Excess 1.2 MMOL/L (-2.5-2.5); ABG HCO3 25.7 MMOL/L (20-26); ABG Oxygen Saturation 96.6 % (95-100); ABG PCO2 40.4 MM HG (35-48); ABG PH 7.422 (7.35-7.45); ABG PO2 89.5 MM HG (80-95); Glucose Heart Surgery 118 MG/DL (74-106); Hemoglobin Heart Surgery 11.3 G/DL (12.0-16.0); Potassium Heart/CVR 4.4 MMOL/L (3.5-5.1)
[2017-06-05] MEDS ORDERED: DEXTROSE 50% 25 GM/50 ML SYRINGE IV PRN (10:09)
[2017-06-05] MEDS ORDERED: GLUCAGON 1 MG VIAL IM PRN (10:09)
--- NOTE | 2017-06-05 10:12 | Cardiology Progress Note ---
Assessment and Plan - Time spent with patient Time spent with patient: Greater than 30 minutes (1) S/P CABG x 4 Status: Chronic Assessment and plan: SEE PLAN OF CARE LISTED BELOW Current Visit: Yes (2) Hypertension Status: Chronic Assessment and plan: SEE PLAN OF CARE LISTED BELOW Current Visit: Yes (3) Anemia Status: Acute Assessment and plan: SEE PLAN OF CARE LISTED BELOW Current Visit: Yes (4) CAD (coronary artery disease) Status: Chronic Assessment and plan: SEE PLAN OF CARE LISTED BELOW Current Visit: No Qualifiers: Coronary Disease-Associated Artery/Lesion type: [place] artery [place] vs. transplanted heart: [place] heart Associated angina: with stable angina Qualified Code(s): I25.118 - Atherosclerotic heart disease of [place] coronary artery with other forms of angina pectoris (5) Hypercholesterolemia Status: Chronic Assessment and plan: SEE PLAN OF CARE LISTED BELOW Current Visit: No (6) Diabetes Status: Chronic Assessment and plan: SEE PLAN OF CARE LISTED BELOW Current Visit: No Cardiology - PN: Subj Interval history: RESERVATIONS SPECIALIST: DR. MARTIN SUMMARY: Ms. Rhodes, 71WF, presented for elective CABG June 03, 2017 to be performed by Dr. Tapia. History of known coronary artery disease, hypertension, dyslipidemia (reported history of statin intolerance) and diabetes. Patient was admitted at the end of April 2017, underwent cardiac catheterization was found to have three-vessel coronary artery disease. June 04, 2017 patient underwent CABG 4 ([place] - LAD, SVG - RCA, SVG - RI, SVG - OM). LVEF 55% per LV gram during cardiac catheterization June 28, 2017 2016: Overnight, patient has been extubated and labs are stable as are vital signs. Chest tube output is minimal. IABP required at the end of the case yesterday. She has since been weaned off and this is been discontinued. Blood pressure is stable. Appears that she may have had some myocardial injury although her electrocardiogram this morning is stable. Troponin trending down. When okay, patient will need Aspirin, lipid-lowering agent, beta blockade and HILARIO inhibitor if possible. Once she is taking p.o. adequately, and vital signs will allow, will introduce. Will further discuss with Dr. Martin and await additional recommendations. ASSESSMENT/PLAN: 1. CAD S/P CABG - status post revascularization. When labs, vital signs are stable will introduce aspirin, beta-letha, HILARIO inhibitor and lipid-lowering agent 2. HYPERTENSION - currently requiring low-dose pressors. Hopefully, this will be weaned this afternoon 3. DYSLIPIDEMIA - lipid lowering agent starting this evening. LDL in a.m. History of statin intolerance but tolerating pravastatin without difficulty. 4. DIABETES - currently on IV insulin. Adjusting per protocol. 5. ANEMIA - stable postoperatively Exam (Progress Note) - Constitutional Vitals: Period Temp Pulse Resp BP Sys/Morales Pulse Ox Last 24 Hr 96.1 F-100.0 F 67-103 10-132 89-155/35-82 95-100 Exam: General: [Appears well with no apparent distress.] [Pleasant and cooperative. ] [Appears comfortable.] HEENT: [PERRL, normocephalic, atraumatic. Mucous membranes moist. No jaundice noted. Conjunctiva moist and clear, sclerae anicteric] Neck: No JVD/HJR, no thyromegaly or lymphadenopathy noted. No carotid bruit appreciated Cardiac: [Regular rate and rhythm.] [Friction rub noted, II/ holosystolic murmur heard best at bilateral upper sternal borders. Chest dressing dry and intact Lungs: [Clear to auscultation without accessory muscle use to assist the respiratory pattern.] Oxygen in use via nasal cannula Abdomen: Soft, bowel sounds normoactive. Nontender and nondistended. No abdominal bruit or thrill noted. No masses noted. Musculoskeletal: No fluid collection. Decreased range of motion is noted. Extremities: No clubbing, cyanosis noted. [ No edema noted.] Upper extremity pulses 2+. Lower extremity pulses 2+. Capillary refill less than 3 seconds. Skin: No unusual lesions or rashes. No skin breakdown appreciated. Dressings bilateral lower extremities dry and intact Neuro: Awake, alert and oriented 3. Moves all extremities well without hemiparesis or paralysis. No essential tremor is appreciated. Result/EKG - Labs CBC & BMP: 06/05/17 03:20 06/05/17 03:20 Lab Results: I have reviewed the past 24 hour labs Labs: Laboratory Results - last 24 hr 06/03/17 06/04/17 06/04/17 10:12 00:12 10:14 WBC RBC Hgb Hct MCV MCH MCHC RDW Plt Count MPV Neut % (Auto) Lymph % (Auto) [place] % (Auto) Eos % (Auto) Baso % (Auto) Neut # (Auto) Lymph # (Auto) [place] # (Auto) Eos # (Auto) Baso # (Auto) Immature Gran % Nucleated RBC % Immature Gran # Nucleated RBCs # Immature Plt Fraction INR PT Patient/Control Mix Circ Anticoag PTT Patient Temperature 35 ABG pH ABG pH at Pt Temp 7.518 ABG pCO2 ABG pCO2 at Pt Temp 26.8 ABG pO2 ABG pO2 at Pt Temp 35.9 ABG HCO3 ABG Total CO2 ABG O2 Saturation ABG Base Excess ABG Sodium 131 L VBG pH 7.488 VBG pCO2 29.5 L VBG pO2 41.2 H VBG HCO3 23.7 L VBG Total CO2 21.2 VBG O2 Saturation 78.7 VBG Base Excess -0.6 L Hemoglobin 7.1 L Hematocrit 22.1 L Potassium 5.4 H Glucose 306 H Ionized Calcium FiO2 80.00 Sodium Chloride Carbon Dioxide Anion Gap BUN Creatinine GFR Calculation BUN/Creatinine Ratio POC Glucose Calculated Osmolality Calcium Venous Ioniz Calcium 0.84 L Magnesium Total Bilirubin Direct Bilirubin AST ALT Alkaline Phosphatase Total Creatine Kinase 1365 H CK-MB (CK-2) 36.8 H CK and CKMB Interp 2.7 Troponin I 31.200 H Total Protein Albumin Globulin Albumin/Globulin Ratio Blood Type A POSITIVE Antibody Screen Negative Crossmatch See Detail 06/04/17 06/04/17 06/04/17 11:50 12:19 12:39 WBC RBC Hgb Hct MCV MCH MCHC RDW Plt Count 67 L MPV Neut % (Auto) Lymph % (Auto) [place] % (Auto) Eos % (Auto) Baso % (Auto) Neut # (Auto) Lymph # (Auto) [place] # (Auto) Eos # (Auto) Baso # (Auto) Immature Gran % Nucleated RBC % Immature Gran # Nucleated RBCs # Immature Plt Fraction INR PT Patient/Control Mix Circ Anticoag PTT Patient Temperature 37 37 ABG pH Cancelled ABG pH at Pt Temp 7.327 7.474 ABG pCO2 Cancelled ABG pCO2 at Pt Temp 35.4 34.1 ABG pO2 Cancelled ABG pO2 at Pt Temp 38.3 40.9 ABG HCO3 Cancelled ABG Total CO2 Cancelled ABG O2 Saturation Cancelled ABG Base Excess Cancelled ABG Sodium 136 139 VBG pH 7.327 7.474 VBG pCO2 35.4 L 34.1 L VBG pO2 38.3 40.9 H VBG HCO3 18.4 L 25.6 VBG Total CO2 17.8 23.3 VBG O2 Saturation 64.5 79.7 VBG Base Excess -6.8 L 1.6 Hemoglobin 6.4 L* 8.1 L Hematocrit 20.0 L 25.3 L Potassium 4.4 3.4 L Glucose 306 H 314 H Ionized Calcium Cancelled FiO2 80.00 Cancelled Sodium Chloride Carbon Dioxide Anion Gap BUN Creatinine GFR Calculation BUN/Creatinine Ratio POC Glucose Calculated Osmolality Calcium Venous Ioniz Calcium 1.49 H 1.25 Magnesium Total Bilirubin Direct Bilirubin AST ALT Alkaline Phosphatase Total Creatine Kinase CK-MB (CK-2) CK and CKMB Interp Troponin I Total Protein Albumin Globulin Albumin/Globulin Ratio Blood Type Antibody Screen Crossmatch 06/04/17 06/04/17 06/04/17 12:39 14:28 14:28 WBC 8.0 RBC 3.31 L D Hgb 9.1 L Hct 26.9 L MCV 81.3 L MCH 28 MCHC 33.8 RDW 19.3 H Plt Count 85 L D MPV 9.5 L Neut % (Auto) 84.9 H Lymph % (Auto) 4.8 L [place] % (Auto) 9.1 Eos % (Auto) 0.3 Baso % (Auto) 0.1 Neut # (Auto) 6.8 Lymph # (Auto) 0.4 L [place] # (Auto) 0.7 Eos # (Auto) 0.0 Baso # (Auto) 0.0 Immature Gran % 0.8 Nucleated RBC % 0.0 Immature Gran # 0.06 Nucleated RBCs # 0.00 Immature Plt Fraction 0.0 INR 1.2 PT Patient/Control Mix 13.2 D Circ Anticoag PTT 28.4 Patient Temperature 37 ABG pH 7.375 ABG pH at Pt Temp 7.375 ABG pCO2 37.2 ABG pCO2 at Pt Temp 37.2 ABG pO2 267.0 H ABG pO2 at Pt Temp 267.0 ABG HCO3 21.9 ABG Total CO2 20.4 L ABG O2 Saturation 99.3 ABG Base Excess -3.0 L ABG Sodium 141 VBG pH VBG pCO2 VBG pO2 VBG HCO3 VBG Total CO2 VBG O2 Saturation VBG Base Excess Hemoglobin 8.0 L Hematocrit 25.0 L Potassium 3.6 Glucose 259 H Ionized Calcium 1.22 FiO2 Sodium Chloride Carbon Dioxide Anion Gap BUN Creatinine GFR Calculation BUN/Creatinine Ratio POC Glucose Calculated Osmolality Calcium Venous Ioniz Calcium Magnesium Total Bilirubin Direct Bilirubin AST ALT Alkaline Phosphatase Total Creatine Kinase CK-MB (CK-2) CK and CKMB Interp Troponin I Total Protein Albumin Globulin Albumin/Globulin Ratio Blood Type Antibody Screen Crossmatch 06/04/17 06/04/17 06/04/17 14:28 14:28 14:28 WBC RBC Hgb Hct MCV MCH MCHC RDW Plt Count MPV Neut % (Auto) Lymph % (Auto) [place] % (Auto) Eos % (Auto) Baso % (Auto) Neut # (Auto) Lymph # (Auto) [place] # (Auto) Eos # (Auto) Baso # (Auto) Immature Gran % Nucleated RBC % Immature Gran # Nucleated RBCs # Immature Plt Fraction INR PT Patient/Control Mix Circ Anticoag PTT Patient Temperature ABG pH 7.388 ABG pH at Pt Temp ABG pCO2 34.8 L ABG pCO2 at Pt Temp ABG pO2 142.0 H ABG pO2 at Pt Temp ABG HCO3 21.5 ABG Total CO2 19.3 L ABG O2 Saturation 98.7 ABG Base Excess -3.5 L ABG Sodium VBG pH VBG pCO2 VBG pO2 VBG HCO3 VBG Total CO2 VBG O2 Saturation VBG Base Excess Hemoglobin 9.1 L Hematocrit 28.2 L Potassium 3.7 3.6 Glucose 240 H 222 H Ionized Calcium FiO2 Sodium 147 H Chloride 110 H Carbon Dioxide 22 Anion Gap 18.7 H BUN 13 Creatinine 1.00 GFR Calculation 53 BUN/Creatinine Ratio 13.00 POC Glucose Calculated Osmolality 299.4 Calcium 8.3 L Venous Ioniz Calcium Magnesium 2.1 Total Bilirubin 1.20 H Direct Bilirubin AST 82 H ALT 20 Alkaline Phosphatase 42 L Total Creatine Kinase 1038 H D CK-MB (CK-2) 44.3 H D CK and CKMB Interp 4.3 Troponin I 26.100 H Total Protein 4.1 L Albumin 2.3 L Globulin 1.8 L Albumin/Globulin Ratio 1.2 Blood Type Antibody Screen Crossmatch 06/04/17 06/04/17 06/04/17 15:30 16:31 17:21 WBC RBC Hgb Hct MCV MCH MCHC RDW Plt Count MPV Neut % (Auto) Lymph % (Auto) [place] % (Auto) Eos % (Auto) Baso % (Auto) Neut # (Auto) Lymph # (Auto) [place] # (Auto) Eos # (Auto) Baso # (Auto) Immature Gran % Nucleated RBC % Immature Gran # Nucleated RBCs # Immature Plt Fraction INR PT Patient/Control Mix Circ Anticoag PTT Patient Temperature ABG pH 7.444 7.535 H ABG pH at Pt Temp ABG pCO2 31.1 L 26.6 L ABG pCO2 at Pt Temp ABG pO2 162.0 H 131.3 H ABG pO2 at Pt Temp ABG HCO3 22.8 22.0 ABG Total CO2 19.1 L 22.8 L ABG O2 Saturation 99.1 98.2 ABG Base Excess -1.9 0.3 ABG Sodium VBG pH VBG pCO2 VBG pO2 VBG HCO3 VBG Total CO2 VBG O2 Saturation VBG Base Excess Hemoglobin 10.9 L 11.2 L Hematocrit 33.7 L 33.0 L Potassium 4.8 3.7 Glucose 225 H 224 H Ionized Calcium FiO2 Sodium Chloride Carbon Dioxide Anion Gap BUN Creatinine GFR Calculation BUN/Creatinine Ratio POC Glucose 277 H Calculated Osmolality Calcium Venous Ioniz Calcium Magnesium Total Bilirubin Direct Bilirubin AST ALT Alkaline Phosphatase Total Creatine Kinase CK-MB (CK-2) CK and CKMB Interp Troponin I Total Protein Albumin Globulin Albumin/Globulin Ratio Blood Type Antibody Screen Crossmatch 06/04/17 06/04/17 06/04/17 18:12 18:30 19:03 WBC RBC Hgb Hct MCV MCH MCHC RDW Plt Count MPV Neut % (Auto) Lymph % (Auto) [place] % (Auto) Eos % (Auto) Baso % (Auto) Neut # (Auto) Lymph # (Auto) [place] # (Auto) Eos # (Auto) Baso # (Auto) Immature Gran % Nucleated RBC % Immature Gran # Nucleated RBCs # Immature Plt Fraction INR PT Patient/Control Mix Circ Anticoag PTT Patient Temperature ABG pH 7.507 H ABG pH at Pt Temp ABG pCO2 30.8 L ABG pCO2 at Pt Temp ABG pO2 148.4 H ABG pO2 at Pt Temp ABG HCO3 23.9 ABG Total CO2 24.8 ABG O2 Saturation 98.1 ABG Base Excess 1.3 ABG Sodium VBG pH VBG pCO2 VBG pO2 VBG HCO3 VBG Total CO2 VBG O2 Saturation VBG Base Excess Hemoglobin 11.0 L Hematocrit 32.0 L Potassium 3.8 Glucose 218 H Ionized Calcium FiO2 Sodium Chloride Carbon Dioxide Anion Gap BUN Creatinine GFR Calculation BUN/Creatinine Ratio POC Glucose 263 H 215 H Calculated Osmolality Calcium Venous Ioniz Calcium Magnesium Total Bilirubin Direct Bilirubin AST ALT Alkaline Phosphatase Total Creatine Kinase CK-MB (CK-2) CK and CKMB Interp Troponin I Total Protein Albumin Globulin Albumin/Globulin Ratio Blood Type Antibody Screen Crossmatch 06/04/17 06/04/17 06/04/17 20:00 21:03 21:53 WBC RBC Hgb Hct MCV MCH MCHC RDW Plt Count MPV Neut % (Auto) Lymph % (Auto) [place] % (Auto) Eos % (Auto) Baso % (Auto) Neut # (Auto) Lymph # (Auto) [place] # (Auto) Eos # (Auto) Baso # (Auto) Immature Gran % Nucleated RBC % Immature Gran # Nucleated RBCs # Immature Plt Fraction INR PT Patient/Control Mix Circ Anticoag PTT Patient Temperature ABG pH ABG pH at Pt Temp ABG pCO2 ABG pCO2 at Pt Temp ABG pO2 ABG pO2 at Pt Temp ABG HCO3 ABG Total CO2 ABG O2 Saturation ABG Base Excess ABG Sodium VBG pH VBG pCO2 VBG pO2 VBG HCO3 VBG Total CO2 VBG O2 Saturation VBG Base Excess Hemoglobin Hematocrit Potassium Glucose Ionized Calcium FiO2 Sodium Chloride Carbon Dioxide Anion Gap BUN Creatinine GFR Calculation BUN/Creatinine Ratio POC Glucose 186 H 183 H 132 H Calculated Osmolality Calcium Venous Ioniz Calcium Magnesium Total Bilirubin Direct Bilirubin AST ALT Alkaline Phosphatase Total Creatine Kinase CK-MB (CK-2) CK and CKMB Interp Troponin I Total Protein Albumin Globulin Albumin/Globulin Ratio Blood Type Antibody Screen Crossmatch 06/04/17 06/04/17 06/05/17 22:26 22:58 00:03 WBC RBC Hgb Hct MCV MCH MCHC RDW Plt Count MPV Neut % (Auto) Lymph % (Auto) [place] % (Auto) Eos % (Auto) Baso % (Auto) Neut # (Auto) Lymph # (Auto) [place] # (Auto) Eos # (Auto) Baso # (Auto) Immature Gran % Nucleated RBC % Immature Gran # Nucleated RBCs # Immature Plt Fraction INR PT Patient/Control Mix Circ Anticoag PTT Patient Temperature ABG pH 7.496 H ABG pH at Pt Temp ABG pCO2 31.4 L ABG pCO2 at Pt Temp ABG pO2 165.0 H ABG pO2 at Pt Temp ABG HCO3 25.7 ABG Total CO2 22.2 L ABG O2 Saturation 99.2 ABG Base Excess 1.4 ABG Sodium VBG pH VBG pCO2 VBG pO2 VBG HCO3 VBG Total CO2 VBG O2 Saturation VBG Base Excess Hemoglobin 9.0 L Hematocrit 28.0 L Potassium 3.6 Glucose 107 H Ionized Calcium FiO2 Sodium Chloride Carbon Dioxide Anion Gap BUN Creatinine GFR Calculation BUN/Creatinine Ratio POC Glucose 121 H 69 L Calculated Osmolality Calcium Venous Ioniz Calcium Magnesium Total Bilirubin Direct Bilirubin AST ALT Alkaline Phosphatase Total Creatine Kinase CK-MB (CK-2) CK and CKMB Interp Troponin I Total Protein Albumin Globulin Albumin/Globulin Ratio Blood Type Antibody Screen Crossmatch 06/05/17 06/05/17 06/05/17 00:04 01:00 02:06 WBC RBC Hgb Hct MCV MCH MCHC RDW Plt Count MPV Neut % (Auto) Lymph % (Auto) [place] % (Auto) Eos % (Auto) Baso % (Auto) Neut # (Auto) Lymph # (Auto) [place] # (Auto) Eos # (Auto) Baso # (Auto) Immature Gran % Nucleated RBC % Immature Gran # Nucleated RBCs # Immature Plt Fraction INR PT Patient/Control Mix Circ Anticoag PTT Patient Temperature ABG pH ABG pH at Pt Temp ABG pCO2 ABG pCO2 at Pt Temp ABG pO2 ABG pO2 at Pt Temp ABG HCO3 ABG Total CO2 ABG O2 Saturation ABG Base Excess ABG Sodium VBG pH VBG pCO2 VBG pO2 VBG HCO3 VBG Total CO2 VBG O2 Saturation VBG Base Excess Hemoglobin Hematocrit Potassium Glucose Ionized Calcium FiO2 Sodium Chloride Carbon Dioxide Anion Gap BUN Creatinine GFR Calculation BUN/Creatinine Ratio POC Glucose 82 108 H 103 Calculated Osmolality Calcium Venous Ioniz Calcium Magnesium Total Bilirubin Direct Bilirubin AST ALT Alkaline Phosphatase Total Creatine Kinase CK-MB (CK-2) CK and CKMB Interp Troponin I Total Protein Albumin Globulin Albumin/Globulin Ratio Blood Type Antibody Screen Crossmatch 06/05/17 06/05/17 06/05/17 03:06 03:20 03:20 WBC 10.6 D RBC 3.16 L Hgb 8.9 L Hct 26.0 L MCV 82.3 L MCH 28 MCHC 34.2 RDW 18.0 H Plt Count 100 L MPV 10.1 Neut % (Auto) 84.1 H Lymph % (Auto) 6.1 L [place] % (Auto) 9.4 Eos % (Auto) 0.0 Baso % (Auto) 0.0 Neut # (Auto) 8.9 H Lymph # (Auto) 0.6 L [place] # (Auto) 1.0 H Eos # (Auto) 0.0 Baso # (Auto) 0.0 Immature Gran % 0.4 Nucleated RBC % 0.0 Immature Gran # 0.04 Nucleated RBCs # 0.00 Immature Plt Fraction 0.0 INR PT Patient/Control Mix Circ Anticoag PTT Patient Temperature ABG pH ABG pH at Pt Temp ABG pCO2 ABG pCO2 at Pt Temp ABG pO2 ABG pO2 at Pt Temp ABG HCO3 ABG Total CO2 ABG O2 Saturation ABG Base Excess ABG Sodium VBG pH VBG pCO2 VBG pO2 VBG HCO3 VBG Total CO2 VBG O2 Saturation VBG Base Excess Hemoglobin Hematocrit Potassium 4.0 Glucose 87 Ionized Calcium FiO2 Sodium 144 Chloride 112 H Carbon Dioxide 27 Anion Gap 9.0 BUN 12 Creatinine 0.90 GFR Calculation 60 BUN/Creatinine Ratio 13.00 POC Glucose 92 Calculated Osmolality 284.8 Calcium 8.2 L Venous Ioniz Calcium Magnesium 1.8 Total Bilirubin 0.90 Direct Bilirubin 0.270 H AST 102 H ALT 26 Alkaline Phosphatase 39 L Total Creatine Kinase CK-MB (CK-2) CK and CKMB Interp Troponin I Total Protein 5.0 L Albumin 3.2 L Globulin 1.8 L Albumin/Globulin Ratio 1.7 Blood Type Antibody Screen Crossmatch 06/05/17 06/05/17 06/05/17 03:20 03:20 03:55 WBC RBC Hgb Hct MCV MCH MCHC RDW Plt Count MPV Neut % (Auto) Lymph % (Auto) [place] % (Auto) Eos % (Auto) Baso % (Auto) Neut # (Auto) Lymph # (Auto) [place] # (Auto) Eos # (Auto) Baso # (Auto) Immature Gran % Nucleated RBC % Immature Gran # Nucleated RBCs # Immature Plt Fraction INR PT Patient/Control Mix Circ Anticoag PTT Patient Temperature ABG pH 7.459 H ABG pH at Pt Temp ABG pCO2 34.0 L ABG pCO2 at Pt Temp ABG pO2 160.0 H ABG pO2 at Pt Temp ABG HCO3 25.0 ABG Total CO2 22.2 L ABG O2 Saturation 99.1 ABG Base Excess 0.6 ABG Sodium VBG pH VBG pCO2 VBG pO2 VBG HCO3 VBG Total CO2 VBG O2 Saturation VBG Base Excess Hemoglobin 8.8 L Hematocrit 27.4 L Potassium 3.9 Glucose 89 Ionized Calcium FiO2 Sodium Chloride Carbon Dioxide Anion Gap BUN Creatinine GFR Calculation BUN/Creatinine Ratio POC Glucose 95 Calculated Osmolality Calcium Venous Ioniz Calcium Magnesium Total Bilirubin Direct Bilirubin AST ALT Alkaline Phosphatase Total Creatine Kinase 1244 H CK-MB (CK-2) 32.0 H D CK and CKMB Interp 2.6 Troponin I 25.700 H Total Protein Albumin Globulin Albumin/Globulin Ratio Blood Type Antibody Screen Crossmatch 06/05/17 06/05/17 06/05/17 04:49 05:50 05:55 WBC RBC Hgb Hct MCV MCH MCHC RDW Plt Count MPV Neut % (Auto) Lymph % (Auto) [place] % (Auto) Eos % (Auto) Baso % (Auto) Neut # (Auto) Lymph # (Auto) [place] # (Auto) Eos # (Auto) Baso # (Auto) Immature Gran % Nucleated RBC % Immature Gran # Nucleated RBCs # Immature Plt Fraction INR PT Patient/Control Mix Circ Anticoag PTT Patient Temperature ABG pH 7.490 H ABG pH at Pt Temp ABG pCO2 31.2 L ABG pCO2 at Pt Temp ABG pO2 150.7 H ABG pO2 at Pt Temp ABG HCO3 23.2 ABG Total CO2 24.2 ABG O2 Saturation 98.2 ABG Base Excess 0.5 ABG Sodium VBG pH VBG pCO2 VBG pO2 VBG HCO3 VBG Total CO2 VBG O2 Saturation VBG Base Excess Hemoglobin 11.2 L Hematocrit 33.0 L Potassium 3.7 Glucose 113 H Ionized Calcium FiO2 Sodium Chloride Carbon Dioxide Anion Gap BUN Creatinine GFR Calculation BUN/Creatinine Ratio POC Glucose 111 H 122 H Calculated Osmolality Calcium Venous Ioniz Calcium Magnesium Total Bilirubin Direct Bilirubin AST ALT Alkaline Phosphatase Total Creatine Kinase CK-MB (CK-2) CK and CKMB Interp Troponin I Total Protein Albumin Globulin Albumin/Globulin Ratio Blood Type Antibody Screen Crossmatch 06/05/17 06/05/17 06/05/17 07:14 08:05 08:45 WBC RBC Hgb Hct MCV MCH MCHC RDW Plt Count MPV Neut % (Auto) Lymph % (Auto) [place] % (Auto) Eos % (Auto) Baso % (Auto) Neut # (Auto) Lymph # (Auto) [place] # (Auto) Eos # (Auto) Baso # (Auto) Immature Gran % Nucleated RBC % Immature Gran # Nucleated RBCs # Immature Plt Fraction INR PT Patient/Control Mix Circ Anticoag PTT Patient Temperature ABG pH 7.478 H 7.450 ABG pH at Pt Temp ABG pCO2 33.3 L 37.6 ABG pCO2 at Pt Temp ABG pO2 110.0 H 109.4 H ABG pO2 at Pt Temp ABG HCO3 25.9 25.5 ABG Total CO2 22.0 L 26.7 ABG O2 Saturation 98.4 97.7 ABG Base Excess 1.6 1.6 ABG Sodium VBG pH VBG pCO2 VBG pO2 VBG HCO3 VBG Total CO2 VBG O2 Saturation VBG Base Excess Hemoglobin 11.0 L 11.2 L Hematocrit 34.1 L 33.0 L Potassium 4.2 5.0 Glucose 125 H 122 H Ionized Calcium FiO2 Sodium Chloride Carbon Dioxide Anion Gap BUN Creatinine GFR Calculation BUN/Creatinine Ratio POC Glucose 139 H Calculated Osmolality Calcium Venous Ioniz Calcium Magnesium Total Bilirubin Direct Bilirubin AST ALT Alkaline Phosphatase Total Creatine Kinase CK-MB (CK-2) CK and CKMB Interp Troponin I Total Protein Albumin Globulin Albumin/Globulin Ratio Blood Type Antibody Screen Crossmatch 06/05/17 10:00 WBC RBC Hgb Hct MCV MCH MCHC RDW Plt Count MPV Neut % (Auto) Lymph % (Auto) [place] % (Auto) Eos % (Auto) Baso % (Auto) Neut # (Auto) Lymph # (Auto) [place] # (Auto) Eos # (Auto) Baso # (Auto) Immature Gran % Nucleated RBC % Immature Gran # Nucleated RBCs # Immature Plt Fraction INR PT Patient/Control Mix Circ Anticoag PTT Patient Temperature ABG pH 7.422 ABG pH at Pt Temp ABG pCO2 40.4 ABG pCO2 at Pt Temp ABG pO2 89.5 ABG pO2 at Pt Temp ABG HCO3 25.7 ABG Total CO2 27.0 ABG O2 Saturation 96.6 ABG Base Excess 1.2 ABG Sodium VBG pH VBG pCO2 VBG pO2 VBG HCO3 VBG Total CO2 VBG O2 Saturation VBG Base Excess Hemoglobin 11.3 L Hematocrit 33.0 L Potassium 4.4 Glucose 118 H Ionized Calcium FiO2 Sodium Chloride Carbon Dioxide Anion Gap BUN Creatinine GFR Calculation BUN/Creatinine Ratio POC Glucose Calculated Osmolality Calcium Venous Ioniz Calcium Magnesium Total Bilirubin Direct Bilirubin AST ALT Alkaline Phosphatase Total Creatine Kinase CK-MB (CK-2) CK and CKMB Interp Troponin I Total Protein Albumin Globulin Albumin/Globulin Ratio Blood Type Antibody Screen Crossmatch - Diagnostic Findings Procedure: Chest x-ray: report reviewed by me - EKG EKG results: interpreted by me EKG shows: sinus rhythm Quality Measures - VTE Contraindication to Pharmacological VTE Prophylaxis: High Risk of Bleeding Specialty Discharge - Follow Up or Referrals Follow up with: Gianni Tapia MD [Physician] - Santiago Sanz MD [Primary Care Provider] - Alvin Martin MD [Physician] -
[2017-06-05] MEDS: CEFUROXIME INJ 1,500 MG in SODIUM CHLORIDE 0.9% 100 ML IV SCH ×2 (11:34→21:38)
[2017-06-05] MEDS ORDERED: INSULIN REGULAR 100 UNIT/ML SUBCUT SCH (12:00)
--- NOTE | 2017-06-05 13:34 | XRay Report ---
Portable chest Exam date: 06/05/2017 4:00 AM Indication: Shortness of breath, cough Comparison: Same day at 0308 hours Findings: Cardiomediastinal contours are stable with sternotomy wires and midline. Interval extubation and removal of esophageal gastric tubes. Mediastinal and pleural drains been removed. Remaining tubes and lines are unchanged. Bibasilar atelectasis with trace bilateral effusions, stable. No acute osseous abnormalities. Visualized upper abdomen demonstrates no acute pathology. Impression: Uncomplicated extubation and removal of esophageal gastric tube, mediastinal and pleural drains Bibasilar atelectasis with trace pleural effusions PROCEDURE INTERPRETED AT [facility] DEPARTMENT OF RADIOLOGY Final Report Signed by: Alex Mendez
[2017-06-05] MEDS: ALBUMIN 5% 12.5 GM in PREMIX 1 EACH IV PRN (13:47)
[2017-06-05 14:41] LABS: CKMB % 2.3 %
[2017-06-05 14:42] LABS: Troponin I Only 11.3 NG/ML (0.00-0.045)
[2017-06-05] MEDS: SODIUM CHLORIDE 0.45% 1,000 ML IV SCH ×2 (14:57)
[2017-06-05] MEDS: NITROGLYCERIN DRIP 50 MG/250 ML BOTTLE IV SCH (16:35)
[2017-06-05] MEDS: DOBUTamine 500 MG/250 ML PREMIX IV SCH (16:35)
[2017-06-05] MEDS: INSULIN REGULAR 100 UNIT/ML SUBCUT SCH ×3 (16:54→21:54)
[2017-06-05] MEDS ORDERED: CARVEDILOL 3.125 MG TABLET PO SCH (21:00)
[2017-06-05] MEDS: PRAVASTATIN 20 MG TABLET PO SCH (21:41)
[2017-06-06] MEDS: SODIUM CHLORIDE 0.45% 1,000 ML IV SCH (00:01)
[2017-06-06] MEDS: INSULIN REGULAR 100 UNIT/ML SUBCUT SCH ×4 (02:37→11:35)
[2017-06-06] MEDS: KETOROLAC 15 MG/1 ML VIAL IV SCH ×4 (02:38→20:52)
[2017-06-06] MEDS: MORPHINE 2 MG/1 ML SYRINGE IV PRN (05:10)
[2017-06-06 05:26] LABS: ABG Base Excess 0.5 MMOL/L (-2.5-2.5); ABG HCO3 24.7 MMOL/L (20-26); ABG Oxygen Saturation 91.9 % (95-100); ABG PCO2 38.1 MM HG (35-48); ABG PH 7.421 (7.35-7.45); ABG PO2 63.9 MM HG (80-95); ABG TCO2 22.5 MMOL/L (23-27)
[2017-06-06 05:35] LABS: Basophils % 0.1 % (0.0-0.8); Eosinophils % 0.3 % (0.00-10.9); Hematocrit 30.4 VOL% (35.7-47.0); Hemoglobin 10.3 GM/DL (12.0-16.0); Immature Granulocytes % 0.5 %; Immature Granulocytes Absolute 0.04 #; Lymphocytes # 0.9 10*3/uL (1.4-4.0); Lymphocytes % 11.9 % (21.3-54.2); Mean Corpuscular HGB Conc 33.9 GM/DL (32-36); Mean Corpuscular Hemoglobin 29 PG (27-34); Mean Corpuscular Volume 84.2 FL (87-102); Mean Platelet Volume 9.7 FL (9.6-12.0); Monocytes # 0.6 10*3/uL (0.11-0.8); Monocytes % 7.9 % (1.7-12.7); Neutrophils % 79.3 % (38.7-73.9); Red Blood Count 3.61 MC/CUMM (3.8-5.5); Red Cell Distribution Width 18.1 % (9.3-17.3); White Blood Count 7.6 T/CUMM (4-12)
[2017-06-06 05:36] LABS: Platelet Count 89 T/CUMM (130-400)
[2017-06-06] MEDS ORDERED: SPIRONOLACTONE 25 MG TABLET PO ONE ×2 (05:47→05:48)
[2017-06-06 06:07] LABS: Albumin 3.3 G/DL (3.4-5.0); Bilirubin,Direct 0.18 MG/DL (0.0-0.20); Calcium 8.3 MG/DL (8.5-10.1); Magnesium 2.3 MG/DL (1.8-2.4); Osmolality,Calculated 284.3 MOS/KG (273-304); Potassium 4.4 MMOL/L (3.5-5.1); Total Protein 5.4 G/DL (6.4-8.3)
[2017-06-06 06:15] LABS: Platelet Estimate Decreased
[2017-06-06 06:16] LABS: Anisocytosis Slight; Macrocytosis Slight; Polychromasia 2+
[2017-06-06 06:22] LABS: Risk Ratio 3.31; VLDL CHOLESTEROL 19.8 MG/DL
--- NOTE | 2017-06-06 06:23 | Cardiothoracic Progress Note ---
Cardiothoracic Subjective Interval history: Patient is awake alert and extubated. She appears to be comfortable and is breathing comfortably although her PO2 this morning is 64. She appears to have some pleural effusion on the right side and perhaps some bilateral pulmonary vascular congestion. We will diurese her further today. Her blood pressure has been on the high side with systolics ranging around 160 so we probably can increase her Coreg and add lisinopril. Her cardiac output has been in the range of 3 L/min overnight. This is on 2 mcg/kg/min of dobutamine and I think that we can wean that off this morning. Hopefully we will be able to get her up out of bed some today and perhaps move to telemetry later today but we will make that decision as the day proceeds. Overall her progress appears satisfactory. Exam (Progress Note) - Constitutional Vitals: Period Temp Pulse Resp BP Sys/Morales Pulse Ox Last 24 Hr 97.4 F-99.4 F 71-93 12-22 89-161/41-76 91-99 Result/EKG - Labs CBC & BMP: 06/06/17 05:25 06/06/17 05:25 Labs: Laboratory Results - last 24 hr 06/03/17 06/04/17 06/04/17 10:12 17:21 18:12 WBC RBC Hgb Hct MCV MCH MCHC RDW Plt Count MPV Neut % (Auto) Lymph % (Auto) [place] % (Auto) Eos % (Auto) Baso % (Auto) Neut # (Auto) Lymph # (Auto) [place] # (Auto) Eos # (Auto) Baso # (Auto) Immature Gran % Nucleated RBC % Immature Gran # Nucleated RBCs # Platelet Estimate Immature Plt Fraction Polychromasia Anisocytosis Macrocytosis ABG pH ABG pCO2 ABG pO2 ABG HCO3 ABG Total CO2 ABG O2 Saturation ABG Base Excess Hemoglobin Hematocrit Potassium Glucose Sodium Chloride Carbon Dioxide Anion Gap BUN Creatinine GFR Calculation BUN/Creatinine Ratio POC Glucose 277 H 263 H Calculated Osmolality Calcium Magnesium Total Bilirubin Direct Bilirubin AST ALT Alkaline Phosphatase Total Creatine Kinase CK-MB (CK-2) CK and CKMB Interp Troponin I Total Protein Albumin Globulin Albumin/Globulin Ratio Blood Type A POSITIVE Antibody Screen Negative Crossmatch See Detail 06/04/17 06/04/17 06/04/17 19:03 20:00 21:03 WBC RBC Hgb Hct MCV MCH MCHC RDW Plt Count MPV Neut % (Auto) Lymph % (Auto) [place] % (Auto) Eos % (Auto) Baso % (Auto) Neut # (Auto) Lymph # (Auto) [place] # (Auto) Eos # (Auto) Baso # (Auto) Immature Gran % Nucleated RBC % Immature Gran # Nucleated RBCs # Platelet Estimate Immature Plt Fraction Polychromasia Anisocytosis Macrocytosis ABG pH ABG pCO2 ABG pO2 ABG HCO3 ABG Total CO2 ABG O2 Saturation ABG Base Excess Hemoglobin Hematocrit Potassium Glucose Sodium Chloride Carbon Dioxide Anion Gap BUN Creatinine GFR Calculation BUN/Creatinine Ratio POC Glucose 215 H 186 H 183 H Calculated Osmolality Calcium Magnesium Total Bilirubin Direct Bilirubin AST ALT Alkaline Phosphatase Total Creatine Kinase CK-MB (CK-2) CK and CKMB Interp Troponin I Total Protein Albumin Globulin Albumin/Globulin Ratio Blood Type Antibody Screen Crossmatch 06/04/17 06/04/17 06/05/17 21:53 22:58 00:03 WBC RBC Hgb Hct MCV MCH MCHC RDW Plt Count MPV Neut % (Auto) Lymph % (Auto) [place] % (Auto) Eos % (Auto) Baso % (Auto) Neut # (Auto) Lymph # (Auto) [place] # (Auto) Eos # (Auto) Baso # (Auto) Immature Gran % Nucleated RBC % Immature Gran # Nucleated RBCs # Platelet Estimate Immature Plt Fraction Polychromasia Anisocytosis Macrocytosis ABG pH ABG pCO2 ABG pO2 ABG HCO3 ABG Total CO2 ABG O2 Saturation ABG Base Excess Hemoglobin Hematocrit Potassium Glucose Sodium Chloride Carbon Dioxide Anion Gap BUN Creatinine GFR Calculation BUN/Creatinine Ratio POC Glucose 132 H 121 H 69 L Calculated Osmolality Calcium Magnesium Total Bilirubin Direct Bilirubin AST ALT Alkaline Phosphatase Total Creatine Kinase CK-MB (CK-2) CK and CKMB Interp Troponin I Total Protein Albumin Globulin Albumin/Globulin Ratio Blood Type Antibody Screen Crossmatch 06/05/17 06/05/17 06/05/17 00:04 01:00 02:06 WBC RBC Hgb Hct MCV MCH MCHC RDW Plt Count MPV Neut % (Auto) Lymph % (Auto) [place] % (Auto) Eos % (Auto) Baso % (Auto) Neut # (Auto) Lymph # (Auto) [place] # (Auto) Eos # (Auto) Baso # (Auto) Immature Gran % Nucleated RBC % Immature Gran # Nucleated RBCs # Platelet Estimate Immature Plt Fraction Polychromasia Anisocytosis Macrocytosis ABG pH ABG pCO2 ABG pO2 ABG HCO3 ABG Total CO2 ABG O2 Saturation ABG Base Excess Hemoglobin Hematocrit Potassium Glucose Sodium Chloride Carbon Dioxide Anion Gap BUN Creatinine GFR Calculation BUN/Creatinine Ratio POC Glucose 82 108 H 103 Calculated Osmolality Calcium Magnesium Total Bilirubin Direct Bilirubin AST ALT Alkaline Phosphatase Total Creatine Kinase CK-MB (CK-2) CK and CKMB Interp Troponin I Total Protein Albumin Globulin Albumin/Globulin Ratio Blood Type Antibody Screen Crossmatch 06/05/17 06/05/17 06/05/17 03:06 03:20 03:55 WBC RBC Hgb Hct MCV MCH MCHC RDW Plt Count MPV Neut % (Auto) Lymph % (Auto) [place] % (Auto) Eos % (Auto) Baso % (Auto) Neut # (Auto) Lymph # (Auto) [place] # (Auto) Eos # (Auto) Baso # (Auto) Immature Gran % Nucleated RBC % Immature Gran # Nucleated RBCs # Platelet Estimate Immature Plt Fraction Polychromasia Anisocytosis Macrocytosis ABG pH ABG pCO2 ABG pO2 ABG HCO3 ABG Total CO2 ABG O2 Saturation ABG Base Excess Hemoglobin Hematocrit Potassium Glucose Sodium Chloride Carbon Dioxide Anion Gap BUN Creatinine GFR Calculation BUN/Creatinine Ratio POC Glucose 92 95 Calculated Osmolality Calcium Magnesium Total Bilirubin Direct Bilirubin AST ALT Alkaline Phosphatase Total Creatine Kinase 1244 H CK-MB (CK-2) 32.0 H D CK and CKMB Interp 2.6 Troponin I 25.700 H Total Protein Albumin Globulin Albumin/Globulin Ratio Blood Type Antibody Screen Crossmatch 06/05/17 06/05/17 06/05/17 04:49 05:55 07:14 WBC RBC Hgb Hct MCV MCH MCHC RDW Plt Count MPV Neut % (Auto) Lymph % (Auto) [place] % (Auto) Eos % (Auto) Baso % (Auto) Neut # (Auto) Lymph # (Auto) [place] # (Auto) Eos # (Auto) Baso # (Auto) Immature Gran % Nucleated RBC % Immature Gran # Nucleated RBCs # Platelet Estimate Immature Plt Fraction Polychromasia Anisocytosis Macrocytosis ABG pH ABG pCO2 ABG pO2 ABG HCO3 ABG Total CO2 ABG O2 Saturation ABG Base Excess Hemoglobin Hematocrit Potassium Glucose Sodium Chloride Carbon Dioxide Anion Gap BUN Creatinine GFR Calculation BUN/Creatinine Ratio POC Glucose 111 H 122 H 139 H Calculated Osmolality Calcium Magnesium Total Bilirubin Direct Bilirubin AST ALT Alkaline Phosphatase Total Creatine Kinase CK-MB (CK-2) CK and CKMB Interp Troponin I Total Protein Albumin Globulin Albumin/Globulin Ratio Blood Type Antibody Screen Crossmatch 06/05/17 06/05/17 06/05/17 08:05 08:45 10:00 WBC RBC Hgb Hct MCV MCH MCHC RDW Plt Count MPV Neut % (Auto) Lymph % (Auto) [place] % (Auto) Eos % (Auto) Baso % (Auto) Neut # (Auto) Lymph # (Auto) [place] # (Auto) Eos # (Auto) Baso # (Auto) Immature Gran % Nucleated RBC % Immature Gran # Nucleated RBCs # Platelet Estimate Immature Plt Fraction Polychromasia Anisocytosis Macrocytosis ABG pH 7.478 H 7.450 7.422 ABG pCO2 33.3 L 37.6 40.4 ABG pO2 110.0 H 109.4 H 89.5 ABG HCO3 25.9 25.5 25.7 ABG Total CO2 22.0 L 26.7 27.0 ABG O2 Saturation 98.4 97.7 96.6 ABG Base Excess 1.6 1.6 1.2 Hemoglobin 11.0 L 11.2 L 11.3 L Hematocrit 34.1 L 33.0 L 33.0 L Potassium 4.2 5.0 4.4 Glucose 125 H 122 H 118 H Sodium Chloride Carbon Dioxide Anion Gap BUN Creatinine GFR Calculation BUN/Creatinine Ratio POC Glucose Calculated Osmolality Calcium Magnesium Total Bilirubin Direct Bilirubin AST ALT Alkaline Phosphatase Total Creatine Kinase CK-MB (CK-2) CK and CKMB Interp Troponin I Total Protein Albumin Globulin Albumin/Globulin Ratio Blood Type Antibody Screen Crossmatch 06/05/17 06/05/17 06/05/17 14:06 16:14 21:48 WBC RBC Hgb Hct MCV MCH MCHC RDW Plt Count MPV Neut % (Auto) Lymph % (Auto) [place] % (Auto) Eos % (Auto) Baso % (Auto) Neut # (Auto) Lymph # (Auto) [place] # (Auto) Eos # (Auto) Baso # (Auto) Immature Gran % Nucleated RBC % Immature Gran # Nucleated RBCs # Platelet Estimate Immature Plt Fraction Polychromasia Anisocytosis Macrocytosis ABG pH ABG pCO2 ABG pO2 ABG HCO3 ABG Total CO2 ABG O2 Saturation ABG Base Excess Hemoglobin Hematocrit Potassium Glucose Sodium Chloride Carbon Dioxide Anion Gap BUN Creatinine GFR Calculation BUN/Creatinine Ratio POC Glucose 230 H 338 H Calculated Osmolality Calcium Magnesium Total Bilirubin Direct Bilirubin AST ALT Alkaline Phosphatase Total Creatine Kinase 861 H D CK-MB (CK-2) 19.9 H D CK and CKMB Interp 2.3 Troponin I 11.300 H D Total Protein Albumin Globulin Albumin/Globulin Ratio Blood Type Antibody Screen Crossmatch 06/06/17 06/06/17 06/06/17 02:04 05:15 05:25 WBC 7.6 RBC 3.61 L Hgb 10.3 L Hct 30.4 L MCV 84.2 L MCH 29 MCHC 33.9 RDW 18.1 H Plt Count 89 L MPV 9.7 Neut % (Auto) 79.3 H Lymph % (Auto) 11.9 L [place] % (Auto) 7.9 Eos % (Auto) 0.3 Baso % (Auto) 0.1 Neut # (Auto) 6.0 Lymph # (Auto) 0.9 L [place] # (Auto) 0.6 Eos # (Auto) 0.0 Baso # (Auto) 0.0 Immature Gran % 0.5 Nucleated RBC % 0.0 Immature Gran # 0.04 Nucleated RBCs # 0.00 Platelet Estimate Decreased Immature Plt Fraction 2.9 Polychromasia 2+ Anisocytosis Slight Macrocytosis Slight ABG pH 7.421 ABG pCO2 38.1 ABG pO2 63.9 L ABG HCO3 24.7 ABG Total CO2 22.5 L ABG O2 Saturation 91.9 L ABG Base Excess 0.5 Hemoglobin Hematocrit Potassium Glucose Sodium Chloride Carbon Dioxide Anion Gap BUN Creatinine GFR Calculation BUN/Creatinine Ratio POC Glucose 250 H Calculated Osmolality Calcium Magnesium Total Bilirubin Direct Bilirubin AST ALT Alkaline Phosphatase Total Creatine Kinase CK-MB (CK-2) CK and CKMB Interp Troponin I Total Protein Albumin Globulin Albumin/Globulin Ratio Blood Type Antibody Screen Crossmatch 06/06/17 05:25 WBC RBC Hgb Hct MCV MCH MCHC RDW Plt Count MPV Neut % (Auto) Lymph % (Auto) [place] % (Auto) Eos % (Auto) Baso % (Auto) Neut # (Auto) Lymph # (Auto) [place] # (Auto) Eos # (Auto) Baso # (Auto) Immature Gran % Nucleated RBC % Immature Gran # Nucleated RBCs # Platelet Estimate Immature Plt Fraction Polychromasia Anisocytosis Macrocytosis ABG pH ABG pCO2 ABG pO2 ABG HCO3 ABG Total CO2 ABG O2 Saturation ABG Base Excess Hemoglobin Hematocrit Potassium 4.4 Glucose 129 H Sodium 141 Chloride 106 Carbon Dioxide 28 Anion Gap 11.4 BUN 17 Creatinine 1.00 GFR Calculation 53 BUN/Creatinine Ratio 17.00 POC Glucose Calculated Osmolality 284.3 Calcium 8.3 L Magnesium 2.3 Total Bilirubin 1.00 Direct Bilirubin 0.180 AST 37 ALT 27 Alkaline Phosphatase 55 Total Creatine Kinase CK-MB (CK-2) CK and CKMB Interp Troponin I Total Protein 5.4 L Albumin 3.3 L Globulin 2.1 L Albumin/Globulin Ratio 1.5 Blood Type Antibody Screen Crossmatch Quality Measures - VTE Contraindication to Pharmacological VTE Prophylaxis: High Risk of Bleeding Specialty Discharge - Follow Up or Referrals Follow up with: Gianni Tapia MD [Physician] - Santiago Sanz MD [Primary Care Provider] - Alvin Martin MD [Physician] -
[2017-06-06] MEDS: SPIRONOLACTONE 25 MG TABLET PO SCH (06:54)
[2017-06-06] MEDS: LEVOTHYROXINE 88 MCG TABLET PO SCH (06:54)
[2017-06-06] MEDS: ALBUTEROL/IPRATROPIUM 3 ML NEB RESP TX SCH ×5 (06:55→23:55)
--- NOTE | 2017-06-06 08:18 | XRay Report ---
Portable chest Exam date: 06/06/2017 4:00 AM Indication: Shortness of breath, cough difficulty breathing Comparison: Previous day at 1055 hours Findings: Cardiomediastinal contours are stable with sternotomy wires and midline and no change in line placement since interval study. Breast bibasilar effusions and volume loss, right greater than left. No acute osseous abnormalities. Visualized upper abdomen demonstrates no acute pathology. Impression: Worsening bibasilar volume loss and pleural effusions, right greater than left PROCEDURE INTERPRETED AT [facility] DEPARTMENT OF RADIOLOGY Final Report Signed by: Alex Mendez
[2017-06-06] MEDS: metFORMIN 500 MG TABLET PO SCH ×2 (08:40→16:08)
[2017-06-06] MEDS: FUROSEMIDE 40 MG/4 ML VIAL IV SCH ×2 (08:40→15:45)
[2017-06-06] MEDS: LISINOPRIL 10 MG TABLET PO SCH ×2 (08:50→20:51)
[2017-06-06] MEDS: ASPIRIN EC 81 MG TABLET PO SCH (08:50)
[2017-06-06] MEDS: CARVEDILOL 6.25 MG TABLET PO SCH ×2 (08:50→20:51)
[2017-06-06] MEDS: CHLORHEXIDINE 0.12% ORAL RINSE 60 ML BOTTLE SWISH/SPIT SCH ×2 (08:55→20:52)
--- NOTE | 2017-06-06 11:14 | Cardiology Progress Note ---
Assessment and Plan - Time spent with patient Time spent with patient: Greater than 30 minutes (1) S/P CABG x 4 Status: Chronic Assessment and plan: SEE PLAN OF CARE LISTED BELOW Current Visit: Yes (2) Hypertension Status: Chronic Assessment and plan: SEE PLAN OF CARE LISTED BELOW Current Visit: Yes (3) Anemia Status: Acute Assessment and plan: SEE PLAN OF CARE LISTED BELOW Current Visit: Yes (4) Hypercholesterolemia Status: Chronic Assessment and plan: SEE PLAN OF CARE LISTED BELOW Current Visit: Yes (5) Diabetes Status: Chronic Assessment and plan: SEE PLAN OF CARE LISTED BELOW Current Visit: Yes (6) 3-vessel CAD Status: Chronic Assessment and plan: SEE PLAN OF CARE LISTED BELOW Current Visit: Yes Cardiology - PN: Subj Interval history: 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 Rhodes, 71WF, presented for elective CABG June 03, 2017 to be performed by Dr. Tapia. History of known coronary artery disease, hypertension, dyslipidemia (reported history of statin intolerance) and diabetes. Patient was admitted at the end of April 2017, underwent cardiac catheterization was found to have three-vessel coronary artery disease. June 04, 2017 patient underwent CABG 4 (WALTON - LAD, SVG - RCA, SVG - RI, SVG - OM). LVEF 55% per LV gram during cardiac catheterization June 28, 2017 2016: Overnight, patient has been extubated and labs are stable as are vital signs. Chest tube output is minimal. IABP required at the end of the case yesterday. She has since been weaned off and this is been discontinued. Blood pressure is stable. Appears that she may have had some myocardial injury although her electrocardiogram this morning is stable. Troponin trending down. When okay, patient will need Aspirin, lipid-lowering agent, beta blockade and HILARIO inhibitor if possible. Once she is taking p.o. adequately, and vital signs will allow, will introduce. Will further discuss with Dr. Martin and await additional recommendations. 2016: Patient has been moved out of CPR and is in the ICU. She is doing well with complaints of moderate soreness but overall stable. Dobutamine was weaned off this morning. He is tolerating beta-letha and HILARIO inhibitor at this time. Vital signs are stable as are labs, troponins trending down. Chest x-ray reveals worsening pleural effusions bilaterally, right greater than left. Chest tubes have been removed. Lasix 40 mg IV twice daily was initiated this morning, Spironolactone. Continue Aspirin and lipid-lowering agent. Adding incentive spirometry. Consulting cardiac rehab. Increase activity as able. Will further discuss with Dr. Martin and await additional recommendations. ASSESSMENT/PLAN: 1. CAD S/P CABG - status post revascularization. Tolerating Aspirin, beta- letha, HILARIO inhibitor and lipid-lowering agent. 2. HYPERTENSION -continue with beta-letha and HILARIO inhibitor. Vital signs reflect well-controlled blood pressure at this point. 3. DYSLIPIDEMIA - lipid lowering agent continues. LDL 57. History of statin intolerance but tolerating Pravastatin without difficulty. 4. DIABETES - adequately controlled. Diabetic education prior to discharge. Will consult today. 5. ANEMIA - stable postoperatively. We will continue to follow daily. Exam (Progress Note) - Constitutional Vitals: Period Temp Pulse Resp BP Sys/Morales Pulse Ox Last 24 Hr 98.1 F-99.8 F 54-93 12-22 89-161/41-76 91-100 Exam: General: [Appears well with no apparent distress.] [Pleasant and cooperative. ] [Appears comfortable.] HEENT: [PERRL, normocephalic, atraumatic. Mucous membranes moist. No jaundice noted. Conjunctiva moist and clear, sclerae anicteric] Neck: No JVD/HJR, no thyromegaly or lymphadenopathy noted. No carotid bruit appreciated Cardiac: [Regular rate and rhythm.] [Soft II/ holosystolic murmur heard best at bilateral upper sternal borders. Chest dressing dry and intact Lungs: [Clear to auscultation without accessory muscle use to assist the respiratory pattern, decreased sounds right lower lobe.] Oxygen in use via nasal cannula intermittently Abdomen: Soft, bowel sounds normoactive. Nontender and nondistended. No abdominal bruit or thrill noted. No masses noted. Musculoskeletal: No fluid collection. Decreased range of motion is noted. Extremities: No clubbing, cyanosis noted. [ No edema noted.] Upper extremity pulses 2+. Lower extremity pulses 2+. Capillary refill less than 3 seconds. Skin: No unusual lesions or rashes. No skin breakdown appreciated. Dressings bilateral lower extremities intact, left lower extremity dressing with minimal serosanguineous drainage noted. Neuro: Awake, alert and oriented 3. Moves all extremities well without hemiparesis or paralysis. No essential tremor is appreciated. Result/EKG - Labs CBC & BMP: 06/06/17 05:25 06/06/17 05:25 Lab Results: I have reviewed the past 24 hour labs Labs: Laboratory Results - last 24 hr 06/03/17 06/05/17 06/05/17 10:12 14:06 16:14 WBC RBC Hgb Hct MCV MCH MCHC RDW Plt Count MPV Neut % (Auto) Lymph % (Auto) [place] % (Auto) Eos % (Auto) Baso % (Auto) Neut # (Auto) Lymph # (Auto) [place] # (Auto) Eos # (Auto) Baso # (Auto) Immature Gran % Nucleated RBC % Immature Gran # Nucleated RBCs # Platelet Estimate Immature Plt Fraction Polychromasia Anisocytosis Macrocytosis ABG pH ABG pCO2 ABG pO2 ABG HCO3 ABG Total CO2 ABG O2 Saturation ABG Base Excess Sodium Potassium Chloride Carbon Dioxide Anion Gap BUN Creatinine GFR Calculation BUN/Creatinine Ratio Glucose POC Glucose 230 H Calculated Osmolality Calcium Magnesium Total Bilirubin Direct Bilirubin AST ALT Alkaline Phosphatase Total Creatine Kinase 861 H D CK-MB (CK-2) 19.9 H D CK and CKMB Interp 2.3 Troponin I 11.300 H D Total Protein Albumin Globulin Albumin/Globulin Ratio Triglycerides Cholesterol LDL Cholesterol VLDL Cholesterol HDL Cholesterol Heart Disease Risk Ratio Crossmatch See Detail 06/05/17 06/06/17 06/06/17 21:48 02:04 05:15 WBC RBC Hgb Hct MCV MCH MCHC RDW Plt Count MPV Neut % (Auto) Lymph % (Auto) [place] % (Auto) Eos % (Auto) Baso % (Auto) Neut # (Auto) Lymph # (Auto) [place] # (Auto) Eos # (Auto) Baso # (Auto) Immature Gran % Nucleated RBC % Immature Gran # Nucleated RBCs # Platelet Estimate Immature Plt Fraction Polychromasia Anisocytosis Macrocytosis ABG pH 7.421 ABG pCO2 38.1 ABG pO2 63.9 L ABG HCO3 24.7 ABG Total CO2 22.5 L ABG O2 Saturation 91.9 L ABG Base Excess 0.5 Sodium Potassium Chloride Carbon Dioxide Anion Gap BUN Creatinine GFR Calculation BUN/Creatinine Ratio Glucose POC Glucose 338 H 250 H Calculated Osmolality Calcium Magnesium Total Bilirubin Direct Bilirubin AST ALT Alkaline Phosphatase Total Creatine Kinase CK-MB (CK-2) CK and CKMB Interp Troponin I Total Protein Albumin Globulin Albumin/Globulin Ratio Triglycerides Cholesterol LDL Cholesterol VLDL Cholesterol HDL Cholesterol Heart Disease Risk Ratio Crossmatch 06/06/17 06/06/17 06/06/17 05:25 05:25 05:25 WBC 7.6 RBC 3.61 L Hgb 10.3 L Hct 30.4 L MCV 84.2 L MCH 29 MCHC 33.9 RDW 18.1 H Plt Count 89 L MPV 9.7 Neut % (Auto) 79.3 H Lymph % (Auto) 11.9 L [place] % (Auto) 7.9 Eos % (Auto) 0.3 Baso % (Auto) 0.1 Neut # (Auto) 6.0 Lymph # (Auto) 0.9 L [place] # (Auto) 0.6 Eos # (Auto) 0.0 Baso # (Auto) 0.0 Immature Gran % 0.5 Nucleated RBC % 0.0 Immature Gran # 0.04 Nucleated RBCs # 0.00 Platelet Estimate Decreased Immature Plt Fraction 2.9 Polychromasia 2+ Anisocytosis Slight Macrocytosis Slight ABG pH ABG pCO2 ABG pO2 ABG HCO3 ABG Total CO2 ABG O2 Saturation ABG Base Excess Sodium 141 Potassium 4.4 Chloride 106 Carbon Dioxide 28 Anion Gap 11.4 BUN 17 Creatinine 1.00 GFR Calculation 53 BUN/Creatinine Ratio 17.00 Glucose 129 H POC Glucose Calculated Osmolality 284.3 Calcium 8.3 L Magnesium 2.3 Total Bilirubin 1.00 Direct Bilirubin 0.180 AST 37 ALT 27 Alkaline Phosphatase 55 Total Creatine Kinase CK-MB (CK-2) CK and CKMB Interp Troponin I Total Protein 5.4 L Albumin 3.3 L Globulin 2.1 L Albumin/Globulin Ratio 1.5 Triglycerides 99 Cholesterol 96 LDL Cholesterol 57.0 VLDL Cholesterol 19.8 HDL Cholesterol 29 L Heart Disease Risk Ratio 3.31 Crossmatch 06/06/17 08:19 WBC RBC Hgb Hct MCV MCH MCHC RDW Plt Count MPV Neut % (Auto) Lymph % (Auto) [place] % (Auto) Eos % (Auto) Baso % (Auto) Neut # (Auto) Lymph # (Auto) [place] # (Auto) Eos # (Auto) Baso # (Auto) Immature Gran % Nucleated RBC % Immature Gran # Nucleated RBCs # Platelet Estimate Immature Plt Fraction Polychromasia Anisocytosis Macrocytosis ABG pH ABG pCO2 ABG pO2 ABG HCO3 ABG Total CO2 ABG O2 Saturation ABG Base Excess Sodium Potassium Chloride Carbon Dioxide Anion Gap BUN Creatinine GFR Calculation BUN/Creatinine Ratio Glucose POC Glucose 122 H Calculated Osmolality Calcium Magnesium Total Bilirubin Direct Bilirubin AST ALT Alkaline Phosphatase Total Creatine Kinase CK-MB (CK-2) CK and CKMB Interp Troponin I Total Protein Albumin Globulin Albumin/Globulin Ratio Triglycerides Cholesterol LDL Cholesterol VLDL Cholesterol HDL Cholesterol Heart Disease Risk Ratio Crossmatch - Diagnostic Findings Procedure: Chest x-ray: report reviewed by me - EKG EKG results: interpreted by me EKG shows: sinus rhythm Quality Measures - VTE Contraindication to Pharmacological VTE Prophylaxis: High Risk of Bleeding Specialty Discharge - Follow Up or Referrals Follow up with: Gianni Tapia MD [Physician] - Santiago Sanz MD [Primary Care Provider] - Alvin Martin MD [Physician] -
--- NOTE | 2017-06-06 12:55 | Anesthesia Post-Op ---
Anesthesia Post OP - Post Ansesthetic Evaluation Patient seen in post op: Yes Resp: within normal limits CV: within normal limits Mental: within normal limits Temp: within normal limits [id number]: within normal limits Nausea and Vomiting: within normal limits Pain: within normal limits
[2017-06-06] MEDS ORDERED: GLUCAGON 1 MG VIAL IM PRN ×2 (14:19)
[2017-06-06] MEDS ORDERED: ONDANSETRON 4 MG/2 ML VIAL IV PRN (14:19)
[2017-06-06] MEDS ORDERED: oxyCODONE/ACETAMINOPHEN 5-325 MG TABLET PO PRN (14:19)
[2017-06-06] MEDS ORDERED: POTASSIUM CHLORIDE 20 MEQ TABLET PO PRN (14:19)
[2017-06-06] MEDS ORDERED: ZALEPLON 5 MG CAPSULE PO PRN (14:19)
[2017-06-06] MEDS ORDERED: MAGNESIUM SULF RIDER 4 GM in PREMIX 1 EACH IV PRN (14:19)
[2017-06-06] MEDS ORDERED: DEXTROSE 50% 25 GM/50 ML VIAL IV PRN ×2 (14:19)
[2017-06-06] MEDS ORDERED: MORPHINE 2 MG/1 ML SYRINGE IV PRN (14:19)
[2017-06-06] MEDS ORDERED: MAGNESIUM HYDROXIDE SUSP 30 ML UDCUP PO PRN (14:19)
[2017-06-06] MEDS ORDERED: ACETAMINOPHEN 325 MG TABLET PO PRN (14:19)
[2017-06-06] MEDS ORDERED: MAGNESIUM SULF RIDER 2 GM in PREMIX 1 EACH IV PRN (14:19)
[2017-06-06] MEDS ORDERED: ALUMINUM/MAGNES/SIMETH MAX STR 30 ML UDCUP PO PRN (14:19)
[2017-06-06] MEDS ORDERED: SODIUM CHLOR 0.45% KCL 20 MEQ 20 MEQ/1,000 ML BAG IV SCH (14:19)
[2017-06-06] MEDS: PRAVASTATIN 20 MG TABLET PO SCH (20:51)
[2017-06-07] MEDS: KETOROLAC 15 MG/1 ML VIAL IV SCH ×4 (01:59→21:12)
[2017-06-07] MEDS: ALBUTEROL/IPRATROPIUM 3 ML NEB RESP TX SCH ×5 (03:40→20:45)
[2017-06-07 05:12] LABS: Basophils % 0.3 % (0.0-0.8); Eosinophils # 0.1 10*3/uL (0.0-0.87); Eosinophils % 1.8 % (0.00-10.9); Hematocrit 27.8 VOL% (35.7-47.0); Hemoglobin 9.4 GM/DL (12.0-16.0); Immature Granulocytes % 0.5 %; Immature Granulocytes Absolute 0.03 #; Lymphocytes # 1.2 10*3/uL (1.4-4.0); Lymphocytes % 18.3 % (21.3-54.2); Mean Corpuscular HGB Conc 33.8 GM/DL (32-36); Mean Corpuscular Hemoglobin 29 PG (27-34); Mean Corpuscular Volume 84.2 FL (87-102); Mean Platelet Volume 10.5 FL (9.6-12.0); Monocytes # 0.7 10*3/uL (0.11-0.8); Neutrophils # 4.4 10*3/uL (1.4-7.4); Neutrophils % 68.1 % (38.7-73.9); Red Cell Distribution Width 17.9 % (9.3-17.3); White Blood Count 6.5 T/CUMM (4-12)
[2017-06-07 05:24] LABS: Platelet Count 84 T/CUMM (130-400)
[2017-06-07 05:38] LABS: Microcytosis Slight; Ovalocytes 1+; Platelet Estimate Decreased
[2017-06-07 05:39] LABS: Anisocytosis Slight
[2017-06-07 05:52] LABS: Alanine Aminotransferase 21 U/L (13-56); Albumin 2.9 G/DL (3.4-5.0); Alkaline Phosphatase 63 U/L (45-117); Aspartate Amino Transferase 25 U/L (0-37); Bilirubin,Indirect 1.3 MG/DL (0.0-1.0); Blood Urea Nitrogen 20 MG/DL (7-18); Calcium 8.1 MG/DL (8.5-10.1); Glucose 181 MG/DL (74-106); Magnesium 1.8 MG/DL (1.8-2.4); Osmolality,Calculated 282.7 MOS/KG (273-304); Sodium 138 MMOL/L (136-145); Total Protein 5.1 G/DL (6.4-8.3)
[2017-06-07] MEDS ORDERED: FUROSEMIDE 40 MG/4 ML VIAL IV ONE (06:00)
[2017-06-07] MEDS: LEVOTHYROXINE 88 MCG TABLET PO SCH (06:08)
--- NOTE | 2017-06-07 08:52 | Cardiothoracic Progress Note ---
Cardiothoracic Subjective Interval history: Patient is now on telemetry and appears to be doing fairly well. Her vital signs are stable and she is breathing comfortably. Her chest x-ray continues to show some pleural effusion on the right however this does not appear worse than it was yesterday. We will gradually try to increase her activities today as tolerated. Overall she seems to be progressing in a satisfactory manner. Exam (Progress Note) - Constitutional Vitals: Period Temp Pulse Resp BP Sys/Morales Pulse Ox Last 24 Hr 96.7 F-100.6 F 54-97 10-24 115-143/53-77 89-100 Result/EKG - Labs CBC & BMP: 06/07/17 04:44 06/07/17 04:44 Labs: Laboratory Results - last 24 hr 06/05/17 06/06/17 06/06/17 12:38 11:19 16:03 WBC RBC Hgb Hct MCV MCH MCHC RDW Plt Count MPV Neut % (Auto) Lymph % (Auto) [place] % (Auto) Eos % (Auto) Baso % (Auto) Neut # (Auto) Lymph # (Auto) [place] # (Auto) Eos # (Auto) Baso # (Auto) Immature Gran % Nucleated RBC % Immature Gran # Nucleated RBCs # Platelet Estimate Immature Plt Fraction Anisocytosis Microcytosis Ovalocytes Sodium Potassium Chloride Carbon Dioxide Anion Gap BUN Creatinine GFR Calculation BUN/Creatinine Ratio Glucose POC Glucose 166 H 215 H 245 H Calculated Osmolality Calcium Magnesium Total Bilirubin Direct Bilirubin Indirect Bilirubin AST ALT Alkaline Phosphatase Total Creatine Kinase CK-MB (CK-2) Troponin I Total Protein Albumin Globulin Albumin/Globulin Ratio 06/06/17 06/07/17 06/07/17 19:10 04:44 04:44 WBC 6.5 RBC 3.30 L Hgb 9.4 L Hct 27.8 L MCV 84.2 L MCH 29 MCHC 33.8 RDW 17.9 H Plt Count 84 L MPV 10.5 Neut % (Auto) 68.1 Lymph % (Auto) 18.3 L [place] % (Auto) 11.0 Eos % (Auto) 1.8 Baso % (Auto) 0.3 Neut # (Auto) 4.4 Lymph # (Auto) 1.2 L [place] # (Auto) 0.7 Eos # (Auto) 0.1 Baso # (Auto) 0.0 Immature Gran % 0.5 Nucleated RBC % 0.0 Immature Gran # 0.03 Nucleated RBCs # 0.00 Platelet Estimate Decreased Immature Plt Fraction 0.0 Anisocytosis Slight Microcytosis Slight Ovalocytes 1+ Sodium 138 Potassium 4.0 Chloride 102 Carbon Dioxide 32 Anion Gap 8.0 BUN 20 H Creatinine 0.80 GFR Calculation 69 BUN/Creatinine Ratio 25.00 H Glucose 181 H POC Glucose 249 H Calculated Osmolality 282.7 Calcium 8.1 L Magnesium 1.8 Total Bilirubin 1.50 H Direct Bilirubin 0.250 H Indirect Bilirubin 1.3 H AST 25 ALT 21 Alkaline Phosphatase 63 Total Creatine Kinase 193 H D CK-MB (CK-2) 1.5 D Troponin I 5.170 H D Total Protein 5.1 L Albumin 2.9 L Globulin 2.2 L Albumin/Globulin Ratio 1.3 06/07/17 07:42 WBC RBC Hgb Hct MCV MCH MCHC RDW Plt Count MPV Neut % (Auto) Lymph % (Auto) [place] % (Auto) Eos % (Auto) Baso % (Auto) Neut # (Auto) Lymph # (Auto) [place] # (Auto) Eos # (Auto) Baso # (Auto) Immature Gran % Nucleated RBC % Immature Gran # Nucleated RBCs # Platelet Estimate Immature Plt Fraction Anisocytosis Microcytosis Ovalocytes Sodium Potassium Chloride Carbon Dioxide Anion Gap BUN Creatinine GFR Calculation BUN/Creatinine Ratio Glucose POC Glucose 169 H Calculated Osmolality Calcium Magnesium Total Bilirubin Direct Bilirubin Indirect Bilirubin AST ALT Alkaline Phosphatase Total Creatine Kinase CK-MB (CK-2) Troponin I Total Protein Albumin Globulin Albumin/Globulin Ratio Quality Measures - VTE Contraindication to Pharmacological VTE Prophylaxis: High Risk of Bleeding Specialty Discharge - Follow Up or Referrals Follow up with: Gianni Tapia MD [Physician] - Santiago Sanz MD [Primary Care Provider] - Alvin Martin MD [Physician] -
[2017-06-07] MEDS: FUROSEMIDE 40 MG/4 ML VIAL IV SCH ×2 (08:54→17:27)
[2017-06-07] MEDS: FERROUS SULFATE 325 MG TABLET PO SCH (08:55)
[2017-06-07] MEDS: metFORMIN 500 MG TABLET PO SCH ×2 (08:55→17:28)
[2017-06-07] MEDS: PANTOPRAZOLE 40 MG TABLET PO SCH (08:55)
[2017-06-07] MEDS: CARVEDILOL 6.25 MG TABLET PO SCH ×2 (08:55→21:12)
[2017-06-07] MEDS: LISINOPRIL 10 MG TABLET PO SCH ×2 (08:55→21:12)
[2017-06-07] MEDS: ASPIRIN EC 81 MG TABLET PO SCH (08:55)
[2017-06-07] MEDS: CHLORHEXIDINE 0.12% ORAL RINSE 60 ML BOTTLE SWISH/SPIT SCH ×2 (08:56→21:13)
[2017-06-07] MEDS: SPIRONOLACTONE 25 MG TABLET PO SCH (08:56)
[2017-06-07] MEDS: DOCUSATE SODIUM 100 MG CAPSULE PO SCH (08:56)
--- NOTE | 2017-06-07 13:12 | XRay Report ---
History: Shortness of breath Date: 06/07/2017 Study: Chest x-ray AP portable Comparison exam: 06/06/2017 The right IJ central line is in satisfactory position. The right subclavian [place] catheter has been removed. There is no pneumothorax. There is stable cardiomegaly. The mediastinal contours are unchanged in this patient status post prior median sternotomy. The pulmonary vasculature is upper normal. There is continued bibasilar parenchymal and pleural disease, grossly similar. This may represent accommodation of bibasilar atelectasis and residual pulmonary edema. There is no pneumothorax. Osseous structures are unchanged. Impression: No evidence of a pneumothorax following [place] catheter removal. Continued bibasilar parenchymal and pleural disease, grossly similar PROCEDURE INTERPRETED AT [facility] DEPARTMENT OF RADIOLOGY Final Report Signed by: Dr. Juliette Rivera
--- NOTE | 2017-06-07 14:47 | Cardiology Progress Note ---
Assessment and Plan (1) Angina effort Status: Resolved Assessment and plan: She has failed medical therapy Has significant three-vessel disease which would benefit from revascularization I reviewed the cath with Dr. Tapia. He agrees patient needs revascularization, bypass grafting We will continue her current cardiac meds to minimize recurrence of angina before the bypass We will continue treatment for her constipation postop We will continue cardiac meds If we need help with her diabetes management, could get Dr. Santiago Sanz to help I will follow along with you. Thank you for allowing me to participate in this patient's care 06/04/17 Difficulty in the OR Intra-aortic balloon pump placed. Hemodynamically she is more stable Her troponin and CK-MB have increased, suggesting an [place] may have been the cause of the event, or it could have been secondary to other causes We will continue to get serial EKGs and enzymes Continue support I discussed with the patient's daughter and her cousin about the overall situation. With having an [place], prognosis is guarded. 06/07/17: Last chest wall soreness Less shortness of breath Blood pressure okay Labs okay Increase ambulation as tolerated I discussed with the patient and her daughter that she had a perioperative [place] which could be secondary to hypotension or [place] could have caused the hypotension. Whatever the case, it appeared to be small and she is improving She is on good medical therapy for post [place] care-HILARIO inhibitor, beta-letha, Spironolactone Current Visit: No (2) Constipation Status: Acute Current Visit: Yes (3) 3-vessel CAD Status: Chronic Current Visit: Yes (4) CAD (coronary artery disease) Status: Deleted Current Visit: No Qualifiers: Coronary Disease-Associated Artery/Lesion type: [place] artery [place] vs. transplanted heart: [place] heart Associated angina: with stable angina Qualified Code(s): I25.118 - Atherosclerotic heart disease of [place] coronary artery with other forms of angina pectoris (5) Diabetes Status: Chronic Current Visit: Yes (6) Hypercholesterolemia Status: Chronic Current Visit: Yes (7) Statin intolerance Status: Resolved Current Visit: No Cardiology - PN: Subj Interval history: No angina. Less chest wall pain. Less shortness of breath. Exam (Progress Note) - Constitutional Vitals: Period Temp Pulse Resp BP Sys/Morales Pulse Ox Last 24 Hr 96.7 F-100.4 F 77-97 16-20 116-143/65-77 89-100 Exam: HEENT: Pupils equal, reactive to light and accommodation Neck: NoJVD or bruit Lungs clear to auscultation Heart: Regular rhythm rate with normal S1 and S2. Apical S4 ; Abdomen: No hepatosplenomegaly Spine/extremities: No clubbing, cyanosis, or edema Neuro: Nonfocal Psych: No depression or anxiety Result/EKG - Labs CBC & BMP: 06/07/17 04:44 06/07/17 04:44 Labs: Laboratory Results - last 24 hr 06/05/17 06/06/17 06/06/17 12:38 16:03 19:10 WBC RBC Hgb Hct MCV MCH MCHC RDW Plt Count MPV Neut % (Auto) Lymph % (Auto) [place] % (Auto) Eos % (Auto) Baso % (Auto) Neut # (Auto) Lymph # (Auto) [place] # (Auto) Eos # (Auto) Baso # (Auto) Immature Gran % Nucleated RBC % Immature Gran # Nucleated RBCs # Platelet Estimate Immature Plt Fraction Anisocytosis Microcytosis Ovalocytes Sodium Potassium Chloride Carbon Dioxide Anion Gap BUN Creatinine GFR Calculation BUN/Creatinine Ratio Glucose POC Glucose 166 H 245 H 249 H Calculated Osmolality Calcium Magnesium Total Bilirubin Direct Bilirubin Indirect Bilirubin AST ALT Alkaline Phosphatase Total Creatine Kinase CK-MB (CK-2) Troponin I Total Protein Albumin Globulin Albumin/Globulin Ratio 06/07/17 06/07/17 06/07/17 04:44 04:44 07:42 WBC 6.5 RBC 3.30 L Hgb 9.4 L Hct 27.8 L MCV 84.2 L MCH 29 MCHC 33.8 RDW 17.9 H Plt Count 84 L MPV 10.5 Neut % (Auto) 68.1 Lymph % (Auto) 18.3 L [place] % (Auto) 11.0 Eos % (Auto) 1.8 Baso % (Auto) 0.3 Neut # (Auto) 4.4 Lymph # (Auto) 1.2 L [place] # (Auto) 0.7 Eos # (Auto) 0.1 Baso # (Auto) 0.0 Immature Gran % 0.5 Nucleated RBC % 0.0 Immature Gran # 0.03 Nucleated RBCs # 0.00 Platelet Estimate Decreased Immature Plt Fraction 0.0 Anisocytosis Slight Microcytosis Slight Ovalocytes 1+ Sodium 138 Potassium 4.0 Chloride 102 Carbon Dioxide 32 Anion Gap 8.0 BUN 20 H Creatinine 0.80 GFR Calculation 69 BUN/Creatinine Ratio 25.00 H Glucose 181 H POC Glucose 169 H Calculated Osmolality 282.7 Calcium 8.1 L Magnesium 1.8 Total Bilirubin 1.50 H Direct Bilirubin 0.250 H Indirect Bilirubin 1.3 H AST 25 ALT 21 Alkaline Phosphatase 63 Total Creatine Kinase 193 H D CK-MB (CK-2) 1.5 D Troponin I 5.170 H D Total Protein 5.1 L Albumin 2.9 L Globulin 2.2 L Albumin/Globulin Ratio 1.3 06/07/17 11:50 WBC RBC Hgb Hct MCV MCH MCHC RDW Plt Count MPV Neut % (Auto) Lymph % (Auto) [place] % (Auto) Eos % (Auto) Baso % (Auto) Neut # (Auto) Lymph # (Auto) [place] # (Auto) Eos # (Auto) Baso # (Auto) Immature Gran % Nucleated RBC % Immature Gran # Nucleated RBCs # Platelet Estimate Immature Plt Fraction Anisocytosis Microcytosis Ovalocytes Sodium Potassium Chloride Carbon Dioxide Anion Gap BUN Creatinine GFR Calculation BUN/Creatinine Ratio Glucose POC Glucose 206 H Calculated Osmolality Calcium Magnesium Total Bilirubin Direct Bilirubin Indirect Bilirubin AST ALT Alkaline Phosphatase Total Creatine Kinase CK-MB (CK-2) Troponin I Total Protein Albumin Globulin Albumin/Globulin Ratio Quality Measures - VTE Contraindication to Pharmacological VTE Prophylaxis: High Risk of Bleeding Specialty Discharge - Follow Up or Referrals Follow up with: Gianni Tapia MD [Physician] - Santiago Sanz MD [Primary Care Provider] - Alvin Martin MD [Physician] -
[2017-06-07] MEDS: PRAVASTATIN 20 MG TABLET PO SCH (21:12)
[2017-06-08] MEDS: ALBUTEROL/IPRATROPIUM 3 ML NEB RESP TX SCH ×7 (00:39→23:36)
[2017-06-08] MEDS: KETOROLAC 15 MG/1 ML VIAL IV SCH ×4 (03:48→21:23)
[2017-06-08 04:41] LABS: Basophils % 0.4 % (0.0-0.8); Eosinophils # 0.1 10*3/uL (0.0-0.87); Eosinophils % 1.7 % (0.00-10.9); Hematocrit 28.9 VOL% (35.7-47.0); Hemoglobin 9.7 GM/DL (12.0-16.0); Immature Granulocytes % 0.5 %; Immature Granulocytes Absolute 0.04 #; Mean Corpuscular HGB Conc 33.6 GM/DL (32-36); Mean Corpuscular Hemoglobin 28 PG (27-34); Mean Corpuscular Volume 84.5 FL (87-102); Mean Platelet Volume 11.3 FL (9.6-12.0); Monocytes % 11.7 % (1.7-12.7); Neutrophils # 6.3 10*3/uL (1.4-7.4); Neutrophils % 73.7 % (38.7-73.9); Platelet Count 102 T/CUMM (130-400); Red Blood Count 3.42 MC/CUMM (3.8-5.5); Red Cell Distribution Width 17.8 % (9.3-17.3); White Blood Count 8.5 T/CUMM (4-12)
[2017-06-08 05:25] LABS: Alanine Aminotransferase 20 U/L (13-56); Albumin 2.8 G/DL (3.4-5.0); Alkaline Phosphatase 78 U/L (45-117); Aspartate Amino Transferase 17 U/L (0-37); Bilirubin,Indirect 0.8 MG/DL (0.0-1.0); Blood Urea Nitrogen 25 MG/DL (7-18); Calcium 8.6 MG/DL (8.5-10.1); Glucose 219 MG/DL (74-106); Magnesium 1.9 MG/DL (1.8-2.4); Osmolality,Calculated 285.7 MOS/KG (273-304); Sodium 138 MMOL/L (136-145); Total Protein 5.5 G/DL (6.4-8.3)
[2017-06-08] MEDS: LEVOTHYROXINE 88 MCG TABLET PO SCH (06:13)
--- NOTE | 2017-06-08 08:21 | Cardiothoracic Progress Note ---
Cardiothoracic Subjective Interval history: Patient looks and feels okay except for some generalized soreness. She has been breathing comfortably and her vital signs have been stable. Blood work and chest x-ray look okay although she continues to have bilateral pleural effusions at both bases with the right being somewhat greater than the left. Right now we will continue conservative approach for these effusions although eventually they might need to be tapped. We will try to increase her activities slowly according to routine postoperative protocol. Exam (Progress Note) - Constitutional Vitals: Period Temp Pulse Resp BP Sys/Morales Pulse Ox Last 24 Hr 96.8 F-98.7 F 73-90 8-20 112-135/65-83 92-99 Result/EKG - Labs CBC & BMP: 06/08/17 04:33 06/08/17 04:33 Labs: Laboratory Results - last 24 hr 06/07/17 06/07/17 06/07/17 11:50 16:17 21:12 WBC RBC Hgb Hct MCV MCH MCHC RDW Plt Count MPV Neut % (Auto) Lymph % (Auto) [place] % (Auto) Eos % (Auto) Baso % (Auto) Neut # (Auto) Lymph # (Auto) [place] # (Auto) Eos # (Auto) Baso # (Auto) Immature Gran % Nucleated RBC % Immature Gran # Nucleated RBCs # Immature Plt Fraction Sodium Potassium Chloride Carbon Dioxide Anion Gap BUN Creatinine GFR Calculation BUN/Creatinine Ratio Glucose POC Glucose 206 H 273 H 398 H Calculated Osmolality Calcium Magnesium Total Bilirubin Direct Bilirubin Indirect Bilirubin AST ALT Alkaline Phosphatase Total Creatine Kinase CK-MB (CK-2) Troponin I Total Protein Albumin Globulin Albumin/Globulin Ratio 06/08/17 06/08/17 06/08/17 04:33 04:33 07:43 WBC 8.5 D RBC 3.42 L Hgb 9.7 L Hct 28.9 L MCV 84.5 L MCH 28 MCHC 33.6 RDW 17.8 H Plt Count 102 L D MPV 11.3 Neut % (Auto) 73.7 Lymph % (Auto) 12.0 L [place] % (Auto) 11.7 Eos % (Auto) 1.7 Baso % (Auto) 0.4 Neut # (Auto) 6.3 Lymph # (Auto) 1.0 L [place] # (Auto) 1.0 H Eos # (Auto) 0.1 Baso # (Auto) 0.0 Immature Gran % 0.5 Nucleated RBC % 0.0 Immature Gran # 0.04 Nucleated RBCs # 0.00 Immature Plt Fraction 0.0 Sodium 138 Potassium 4.0 Chloride 100 Carbon Dioxide 32 Anion Gap 10.0 BUN 25 H Creatinine 0.90 GFR Calculation 63 BUN/Creatinine Ratio 27.00 H Glucose 219 H POC Glucose 215 H Calculated Osmolality 285.7 Calcium 8.6 Magnesium 1.9 Total Bilirubin 1.00 Direct Bilirubin 0.210 H Indirect Bilirubin 0.8 AST 17 ALT 20 Alkaline Phosphatase 78 Total Creatine Kinase 120 D CK-MB (CK-2) < 1.0 Troponin I 3.470 H D Total Protein 5.5 L Albumin 2.8 L Globulin 2.7 Albumin/Globulin Ratio 1.0 L Quality Measures - VTE Contraindication to Pharmacological VTE Prophylaxis: High Risk of Bleeding Specialty Discharge - Follow Up or Referrals Follow up with: Gianni Tapia MD [Physician] - Santiago Sanz MD [Primary Care Provider] - Alvin Martin MD [Physician] -
[2017-06-08] MEDS: FUROSEMIDE 40 MG/4 ML VIAL IV SCH ×2 (09:39→17:12)
[2017-06-08] MEDS: CARVEDILOL 6.25 MG TABLET PO SCH ×2 (09:40→21:25)
[2017-06-08] MEDS: SPIRONOLACTONE 25 MG TABLET PO SCH ×2 (09:40→21:26)
[2017-06-08] MEDS: metFORMIN 500 MG TABLET PO SCH ×2 (09:40→17:12)
[2017-06-08] MEDS: ASPIRIN EC 81 MG TABLET PO SCH (09:40)
[2017-06-08] MEDS: LISINOPRIL 10 MG TABLET PO SCH ×2 (09:40→21:26)
[2017-06-08] MEDS: DOCUSATE SODIUM 100 MG CAPSULE PO SCH (09:41)
[2017-06-08] MEDS: PANTOPRAZOLE 40 MG TABLET PO SCH (09:41)
[2017-06-08] MEDS: FERROUS SULFATE 325 MG TABLET PO SCH (09:41)
[2017-06-08] MEDS: CHLORHEXIDINE 0.12% ORAL RINSE 60 ML BOTTLE SWISH/SPIT SCH ×2 (09:41→21:28)
--- NOTE | 2017-06-08 10:21 | XRay Report ---
History: Shortness of breath Date: 06/08/2017 Study: Chest x-ray AP portable Comparison exam: 06/07/2017 The right IJ central line is unchanged. There is stable cardiomegaly. The mediastinal contours are unchanged. There is continued bibasilar edema/atelectasis and pleural effusion, grossly similar. There is no pneumothorax. There is no interval worsening. Osseous structures are unchanged. Impression: No gross overall change from the previous study. Continued bibasilar parenchymal and pleural disease without change PROCEDURE INTERPRETED AT [facility] DEPARTMENT OF RADIOLOGY Final Report Signed by: Dr. Juliette Rivera
--- NOTE | 2017-06-08 14:42 | Cardiology Progress Note ---
Assessment and Plan (1) Angina effort Status: Resolved Assessment and plan: She has failed medical therapy Has significant three-vessel disease which would benefit from revascularization I reviewed the cath with Dr. Tapia. He agrees patient needs revascularization, bypass grafting We will continue her current cardiac meds to minimize recurrence of angina before the bypass We will continue treatment for her constipation postop We will continue cardiac meds If we need help with her diabetes management, could get Dr. Santiago Sanz to help I will follow along with you. Thank you for allowing me to participate in this patient's care 06/04/17 Difficulty in the OR Intra-aortic balloon pump placed. Hemodynamically she is more stable Her troponin and CK-MB have increased, suggesting an [place] may have been the cause of the event, or it could have been secondary to other causes We will continue to get serial EKGs and enzymes Continue support I discussed with the patient's daughter and her cousin about the overall situation. With having an [place], prognosis is guarded. 06/07/17: Last chest wall soreness Less shortness of breath Blood pressure okay Labs okay Increase ambulation as tolerated I discussed with the patient and her daughter that she had a perioperative [place] which could be secondary to hypotension or [place] could have caused the hypotension. Whatever the case, it appeared to be small and she is improving She is on good medical therapy for post [place] care-HILARIO inhibitor, beta-lehta, Spironolactone 06/08/11: Assessment/plan/recommendation: Continues to be short of breath with minimal activity X-ray suggest bilateral pleural effusions We will increase spironolactone to 12.5 mg p.o. twice daily, her blood pressure should tolerate it. Continue IV Lasix. Continue the Coreg and the lisinopril Recheck renal function in the a.m. Ambulate As Dr. Tapia said she may need a thoracentesis at some point. Will try the above approach first. The general plan was discussed with the patient and her daughter. They voiced understanding and agree with the plan. Current Visit: No (2) Constipation Status: Acute Current Visit: Yes (3) 3-vessel CAD Status: Chronic Current Visit: Yes (4) CAD (coronary artery disease) Status: Deleted Current Visit: No Qualifiers: Coronary Disease-Associated Artery/Lesion type: [place] artery [place] vs. transplanted heart: [place] heart Associated angina: with stable angina Qualified Code(s): I25.118 - Atherosclerotic heart disease of [place] coronary artery with other forms of angina pectoris (5) Diabetes Status: Chronic Current Visit: Yes (6) Hypercholesterolemia Status: Chronic Current Visit: Yes (7) Statin intolerance Status: Resolved Current Visit: No Cardiology - PN: Subj Interval history: No chest pain but she is short of breath and sore. Exam (Progress Note) - Constitutional Vitals: Period Temp Pulse Resp BP Sys/Morales Pulse Ox Last 24 Hr 96.8 F-98.7 F 73-90 16-20 112-145/65-83 92-99 Exam: HEENT: Pupils equal, reactive to light and accommodation Neck: NoJVD or bruit Lungs decreased breath sounds in the bases of both lungs. Heart: Regular rhythm rate with normal S1 and S2. Apical S4 ; 1/6 systolic ejection murmur along the left lower sternal border. Abdomen: No hepatosplenomegaly Spine/extremities: No clubbing, cyanosis, or edema Neuro: Nonfocal Psych: No depression or anxiety Result/EKG - Labs CBC & BMP: 06/08/17 04:33 06/08/17 04:33 Lab Results: I have reviewed the past 24 hour labs Labs: Laboratory Results - last 24 hr 06/07/17 06/07/17 06/08/17 16:17 21:12 04:33 WBC 8.5 D RBC 3.42 L Hgb 9.7 L Hct 28.9 L MCV 84.5 L MCH 28 MCHC 33.6 RDW 17.8 H Plt Count 102 L D MPV 11.3 Neut % (Auto) 73.7 Lymph % (Auto) 12.0 L [place] % (Auto) 11.7 Eos % (Auto) 1.7 Baso % (Auto) 0.4 Neut # (Auto) 6.3 Lymph # (Auto) 1.0 L [place] # (Auto) 1.0 H Eos # (Auto) 0.1 Baso # (Auto) 0.0 Immature Gran % 0.5 Nucleated RBC % 0.0 Immature Gran # 0.04 Nucleated RBCs # 0.00 Immature Plt Fraction 0.0 Sodium Potassium Chloride Carbon Dioxide Anion Gap BUN Creatinine GFR Calculation BUN/Creatinine Ratio Glucose POC Glucose 273 H 398 H Calculated Osmolality Calcium Magnesium Total Bilirubin Direct Bilirubin Indirect Bilirubin AST ALT Alkaline Phosphatase Total Creatine Kinase CK-MB (CK-2) Troponin I Total Protein Albumin Globulin Albumin/Globulin Ratio 06/08/17 06/08/17 06/08/17 04:33 07:43 11:57 WBC RBC Hgb Hct MCV MCH MCHC RDW Plt Count MPV Neut % (Auto) Lymph % (Auto) [place] % (Auto) Eos % (Auto) Baso % (Auto) Neut # (Auto) Lymph # (Auto) [place] # (Auto) Eos # (Auto) Baso # (Auto) Immature Gran % Nucleated RBC % Immature Gran # Nucleated RBCs # Immature Plt Fraction Sodium 138 Potassium 4.0 Chloride 100 Carbon Dioxide 32 Anion Gap 10.0 BUN 25 H Creatinine 0.90 GFR Calculation 63 BUN/Creatinine Ratio 27.00 H Glucose 219 H POC Glucose 215 H 222 H Calculated Osmolality 285.7 Calcium 8.6 Magnesium 1.9 Total Bilirubin 1.00 Direct Bilirubin 0.210 H Indirect Bilirubin 0.8 AST 17 ALT 20 Alkaline Phosphatase 78 Total Creatine Kinase 120 D CK-MB (CK-2) < 1.0 Troponin I 3.470 H D Total Protein 5.5 L Albumin 2.8 L Globulin 2.7 Albumin/Globulin Ratio 1.0 L - Diagnostic Findings Procedure: Chest x-ray: report reviewed by me - EKG EKG results: interpreted by me Quality Measures - VTE Contraindication to Pharmacological VTE Prophylaxis: High Risk of Bleeding Specialty Discharge - Follow Up or Referrals Follow up with: Gianni Tapia MD [Physician] - Santiago Sanz MD [Primary Care Provider] - Alvin Martin MD [Physician] -
[2017-06-08] MEDS: PRAVASTATIN 20 MG TABLET PO SCH (21:25)
[2017-06-09] MEDS: ALBUTEROL/IPRATROPIUM 3 ML NEB RESP TX SCH ×6 (02:14→23:38)
[2017-06-09] MEDS: KETOROLAC 15 MG/1 ML VIAL IV SCH ×3 (02:16→14:44)
[2017-06-09] MEDS: LEVOTHYROXINE 88 MCG TABLET PO SCH (06:02)
--- NOTE | 2017-06-09 06:17 | Cardiothoracic Progress Note ---
Cardiothoracic Subjective Interval history: Patient looks and feels okay this morning. She is having a fair amount of coughing and associated discomfort but otherwise has been breathing comfortably and her vital signs have been stable. She was able to get out of bed some yesterday and was able to get in the shower. Hopefully she will be able to increase her activities from today. Overall her progress appears satisfactory. Exam (Progress Note) - Constitutional Vitals: Period Temp Pulse Resp BP Sys/Morales Pulse Ox Last 24 Hr 96.8 F-98.3 F 73-83 16-20 127-145/65-82 95-98 Result/EKG - Labs CBC & BMP: 06/08/17 04:33 06/08/17 04:33 Labs: Laboratory Results - last 24 hr 06/08/17 06/08/17 06/08/17 07:43 11:57 16:26 POC Glucose 215 H 222 H 220 H 06/08/17 21:23 POC Glucose 292 H Quality Measures - VTE Contraindication to Pharmacological VTE Prophylaxis: High Risk of Bleeding Specialty Discharge - Follow Up or Referrals Follow up with: Gianni Tapia MD [Physician] - Santiago Sanz MD [Primary Care Provider] - Alvin Martin MD [Physician] -
[2017-06-09] MEDS: metFORMIN 500 MG TABLET PO SCH ×2 (08:42→16:57)
[2017-06-09] MEDS: SPIRONOLACTONE 25 MG TABLET PO SCH ×2 (08:46→20:57)
[2017-06-09] MEDS: ASPIRIN EC 81 MG TABLET PO SCH (08:51)
[2017-06-09] MEDS: DOCUSATE SODIUM 100 MG CAPSULE PO SCH (08:52)
[2017-06-09] MEDS: CARVEDILOL 6.25 MG TABLET PO SCH (08:53)
[2017-06-09] MEDS: CHLORHEXIDINE 0.12% ORAL RINSE 60 ML BOTTLE SWISH/SPIT SCH ×2 (08:55→21:03)
[2017-06-09] MEDS: FERROUS SULFATE 325 MG TABLET PO SCH (08:55)
[2017-06-09] MEDS: LISINOPRIL 10 MG TABLET PO SCH ×2 (08:57→20:57)
[2017-06-09] MEDS: PANTOPRAZOLE 40 MG TABLET PO SCH (08:57)
[2017-06-09] MEDS: FUROSEMIDE 40 MG/4 ML VIAL IV SCH ×2 (08:58→16:56)
--- NOTE | 2017-06-09 12:29 | Cardiology Progress Note ---
Assessment and Plan (1) S/P CABG x 4 Status: Acute Assessment and plan: SEE PLAN OF CARE LISTED BELOW. Current Visit: Yes (2) Dyslipidemia Status: Chronic Assessment and plan: SEE PLAN OF CARE LISTED BELOW. Current Visit: Yes (3) Bilateral pleural effusion Status: Acute Assessment and plan: SEE PLAN OF CARE LISTED BELOW. Current Visit: Yes (4) Anemia Status: Acute Assessment and plan: SEE PLAN OF CARE LISTED BELOW. Current Visit: Yes (5) Diabetes Status: Chronic Assessment and plan: SEE PLAN OF CARE LISTED BELOW. Current Visit: Yes (6) Hypertension Status: Chronic Assessment and plan: SEE PLAN OF CARE LISTED BELOW. Current Visit: Yes (7) Coronary artery disease Status: Chronic Assessment and plan: SEE PLAN OF CARE LISTED BELOW. Current Visit: Yes Cardiology - PN: Subj Interval history: COAT AGENT: DR. MARTIN SUMMARY: Ms. Rhodes, 71WF, presented for elective CABG June 03, 2017 to be performed by Dr. Tapia. History of known coronary artery disease, hypertension, dyslipidemia (reported history of statin intolerance) and diabetes. Patient was admitted at the end of April 2017, underwent cardiac catheterization was found to have three-vessel coronary artery disease. June 04, 2017 patient underwent CABG 4 (WALTON - LAD, SVG - RCA, SVG - RI, SVG - OM). LVEF 55% per LV gram during cardiac catheterization June 28, 2017 2016 Patient is postop day #5 today. She was seen on the telemetry unit. Sitting up eating lunch. No acute distress. She continues to have soreness but is overall doing well. She is progressing nicely. Continues to be intermittently short of breath with exertion. Denies chest pain, heaviness or tightness. I have encouraged patient to continue incentive spirometry. Patient is hemodynamically stable. Labs reviewed. Patient's blood sugars are suboptimally controlled. I have added sliding scale insulin per Accu-Cheks before meals and at bedtime. Troponin continues to trend down. At this point, we will continue current plan of care as patient is recovering well. Tolerating beta-blockade, lipid-lowering agent, HILARIO inhibitor and aspirin well. She was noted to have bilateral pleural effusion on previous x-ray. Continue surveillance on IV Lasix. Diuresing well. Will repeat chest x-ray in the morning. I will further discuss with Dr. Sethi and await his additional recommendations. IMPRESSION AND PLAN 1. CAD S/P CABG - Status post revascularization. Tolerating Aspirin, beta- letha, HILARIO inhibitor and lipid-lowering agent. 2. HYPERTENSION - Continue with beta-letha and HILARIO inhibitor. Vital signs reflect well-controlled blood pressure at this point. 3. DYSLIPIDEMIA - Lipid lowering agent continues. LDL 57. History of statin intolerance but tolerating Pravastatin without difficulty. 4. DIABETES - Sliding scale insulin ordered. Accu-Cheks before meals and at bedtime. 5. ANEMIA - Stable postoperatively. We will continue to follow daily. 6. BILATERAL PLEURAL EFFUSION - Continue spironolactone and IV Lasix. Will repeat chest x-ray in the morning. She may need a thoracentesis at some point. Exam (Progress Note) - Constitutional Vitals: Period Temp Pulse Resp BP Sys/Morales Pulse Ox Last 24 Hr 96.8 F-98.3 F 73-101 16-20 117-145/70-84 92-98 Exam: General: Appears well with no apparent distress. Pleasant and cooperative. Appears comfortable. HEENT: PERRL, normocephalic, atraumatic. Mucous membranes moist. No jaundice noted. Conjunctiva moist and clear, sclerae anicteric Neck: No JVD/HJR, no thyromegaly or lymphadenopathy noted. No carotid bruit appreciated Cardiac: Regular rate and rhythm. Grade 1 systolic murmur Lungs: Decreased lung sounds in bilateral bases. Oxygen via nasal cannula Abdomen: Soft, bowel sounds normoactive. Nontender and nondistended. No abdominal bruit or thrill noted. No masses noted. Extremities: No clubbing, cyanosis noted. No edema noted. Upper extremity pulses 2+. Lower extremity pulses 2+. Capillary refill less than 3 seconds. Skin: No unusual lesions or rashes. No skin breakdown appreciated. Neuro: Awake, alert and oriented 3. Moves all extremities well without hemiparesis or paralysis. No essential tremor is appreciated. Result/EKG - Labs CBC & BMP: 06/08/17 04:33 06/08/17 04:33 Lab Results: I have reviewed the past 24 hour labs Labs: Laboratory Results - last 24 hr 06/08/17 06/08/17 06/09/17 16:26 21:23 07:17 POC Glucose 220 H 292 H 243 H 06/09/17 11:50 POC Glucose 264 H Quality Measures - VTE Contraindication to Pharmacological VTE Prophylaxis: High Risk of Bleeding Specialty Discharge - Follow Up or Referrals Follow up with: Gianni Tapia MD [Physician] - Santiago Sanz MD [Primary Care Provider] - Alvin Martin MD [Physician] -
[2017-06-09] MEDS: INSULIN REGULAR 100 UNIT/ML SUBCUT SCH ×2 (16:56→20:58)
--- NOTE | 2017-06-09 17:15 | Event Note ---
Called by nurses this evening to assess patient's heart rhythm. Heart rate in the low 100s-110s. It appears to be atrial fibrillation this may be a new diagnosis. EKG has been ordered and we will scan this in for Dr. Sethi to assess
[2017-06-09] MEDS: CARVEDILOL 12.5 MG TABLET PO SCH (20:58)
[2017-06-09] MEDS: PRAVASTATIN 20 MG TABLET PO SCH (20:58)
[2017-06-10] MEDS: ALBUTEROL/IPRATROPIUM 3 ML NEB RESP TX SCH ×6 (03:10→22:52)
[2017-06-10 04:40] LABS: Basophils # 0.1 10*3/uL (0.0-0.2); Basophils % 0.5 % (0.0-0.8); Eosinophils # 0.3 10*3/uL (0.0-0.87); Eosinophils % 2.5 % (0.00-10.9); Hematocrit 29.9 VOL% (35.7-47.0); Hemoglobin 10.2 GM/DL (12.0-16.0); Immature Granulocytes % 1.7 %; Immature Granulocytes Absolute 0.18 #; Lymphocytes # 1.3 10*3/uL (1.4-4.0); Lymphocytes % 12.7 % (21.3-54.2); Mean Corpuscular HGB Conc 34.1 GM/DL (32-36); Mean Corpuscular Hemoglobin 29 PG (27-34); Mean Platelet Volume 10.9 FL (9.6-12.0); Monocytes # 1.3 10*3/uL (0.11-0.8); Monocytes % 12.1 % (1.7-12.7); Neutrophils # 7.4 10*3/uL (1.4-7.4); Neutrophils % 70.5 % (38.7-73.9); Platelet Count 170 T/CUMM (130-400); Red Blood Count 3.56 MC/CUMM (3.8-5.5); Red Cell Distribution Width 17.1 % (9.3-17.3); White Blood Count 10.5 T/CUMM (4-12)
[2017-06-10 05:23] LABS: Calcium 8.5 MG/DL (8.5-10.1); Magnesium 1.6 MG/DL (1.8-2.4); Osmolality,Calculated 285.7 MOS/KG (273-304); Potassium 3.8 MMOL/L (3.5-5.1)
[2017-06-10 05:31] LABS: Alanine Aminotransferase 14 U/L (13-56); Albumin 2.6 G/DL (3.4-5.0); Alkaline Phosphatase 82 U/L (45-117); Aspartate Amino Transferase 10 U/L (0-37); Bilirubin,Indirect 0.8 MG/DL (0.0-1.0); Blood Urea Nitrogen 31 MG/DL (7-18); Calcium 8.5 MG/DL (8.5-10.1); Glucose 187 MG/DL (74-106); Osmolality,Calculated 284.8 MOS/KG (273-304); Potassium 3.8 MMOL/L (3.5-5.1); Sodium 137 MMOL/L (136-145); Total Protein 5.5 G/DL (6.4-8.3)
--- NOTE | 2017-06-10 06:27 | Cardiothoracic Progress Note ---
Cardiothoracic Subjective Interval history: Patient looks and feels okay. She did not sleep well last night however because of persistent cough. She has recently been started on lisinopril I think I will stop this and switch to Apresoline for blood pressure control. She also had some episodes of atrial fibrillation yesterday afternoon and evening that appears to have converted to sinus rhythm this morning. Chest x- ray and blood work are pending from this morning but overall her progress continues to be satisfactory. We will try to increase her activities as tolerated. Exam (Progress Note) - Constitutional Vitals: Period Temp Pulse Resp BP Sys/Morales Pulse Ox Last 24 Hr 97.2 F-98.9 F 68-126 16-20 108-155/64-84 92-100 Result/EKG - Labs CBC & BMP: 06/10/17 04:00 06/10/17 04:00 Labs: Laboratory Results - last 24 hr 06/09/17 06/09/17 06/09/17 07:17 11:50 13:44 WBC RBC Hgb Hct MCV MCH MCHC RDW Plt Count MPV Neut % (Auto) Lymph % (Auto) [place] % (Auto) Eos % (Auto) Baso % (Auto) Neut # (Auto) Lymph # (Auto) [place] # (Auto) Eos # (Auto) Baso # (Auto) Immature Gran % Nucleated RBC % Immature Gran # Nucleated RBCs # Immature Plt Fraction Sodium Potassium Chloride Carbon Dioxide Anion Gap BUN Creatinine GFR Calculation BUN/Creatinine Ratio Glucose POC Glucose 243 H 264 H Calculated Osmolality Calcium Magnesium Total Bilirubin Direct Bilirubin Indirect Bilirubin AST ALT Alkaline Phosphatase Total Creatine Kinase CK-MB (CK-2) Troponin I B-Natriuretic Peptide 831 H Total Protein Albumin Globulin Albumin/Globulin Ratio 06/09/17 06/09/17 06/10/17 15:32 20:02 04:00 WBC RBC Hgb Hct MCV MCH MCHC RDW Plt Count MPV Neut % (Auto) Lymph % (Auto) [place] % (Auto) Eos % (Auto) Baso % (Auto) Neut # (Auto) Lymph # (Auto) [place] # (Auto) Eos # (Auto) Baso # (Auto) Immature Gran % Nucleated RBC % Immature Gran # Nucleated RBCs # Immature Plt Fraction Sodium 138 Potassium 3.8 Chloride 99 Carbon Dioxide 31 Anion Gap 11.8 BUN 30 H Creatinine 0.70 GFR Calculation 85 BUN/Creatinine Ratio 42.00 H Glucose 186 H POC Glucose 265 H 271 H Calculated Osmolality 285.7 Calcium 8.5 Magnesium 1.6 L Total Bilirubin Direct Bilirubin Indirect Bilirubin AST ALT Alkaline Phosphatase Total Creatine Kinase CK-MB (CK-2) Troponin I B-Natriuretic Peptide Total Protein Albumin Globulin Albumin/Globulin Ratio 06/10/17 06/10/17 04:00 04:00 WBC 10.5 RBC 3.56 L Hgb 10.2 L Hct 29.9 L MCV 84.0 L MCH 29 MCHC 34.1 RDW 17.1 Plt Count 170 D MPV 10.9 Neut % (Auto) 70.5 Lymph % (Auto) 12.7 L [place] % (Auto) 12.1 Eos % (Auto) 2.5 Baso % (Auto) 0.5 Neut # (Auto) 7.4 Lymph # (Auto) 1.3 L [place] # (Auto) 1.3 H Eos # (Auto) 0.3 Baso # (Auto) 0.1 Immature Gran % 1.7 Nucleated RBC % 0.0 Immature Gran # 0.18 Nucleated RBCs # 0.00 Immature Plt Fraction 0.0 Sodium 137 Potassium 3.8 Chloride 98 Carbon Dioxide 31 Anion Gap 11.8 BUN 31 H Creatinine 0.70 GFR Calculation 85 BUN/Creatinine Ratio 44.00 H Glucose 187 H POC Glucose Calculated Osmolality 284.8 Calcium 8.5 Magnesium Total Bilirubin 1.00 Direct Bilirubin 0.190 Indirect Bilirubin 0.8 AST 10 ALT 14 Alkaline Phosphatase 82 Total Creatine Kinase 82 D CK-MB (CK-2) 1.8 Troponin I 1.320 H D B-Natriuretic Peptide Total Protein 5.5 L Albumin 2.6 L Globulin 2.9 Albumin/Globulin Ratio 0.8 L Quality Measures - VTE Contraindication to Pharmacological VTE Prophylaxis: High Risk of Bleeding Specialty Discharge - Follow Up or Referrals Follow up with: Gianni Tapia MD [Physician] - Santiago Sanz MD [Primary Care Provider] - Alvin Martin MD [Physician] -
[2017-06-10] MEDS: LEVOTHYROXINE 88 MCG TABLET PO SCH (06:42)
--- NOTE | 2017-06-10 07:57 | EKG Report ---
Stationary ECG Study [facility] Test Date: 06/09/2017 7:18:13 PM Pat Name: KWABENA BOSS Department: Room: 274 Gender: F Auto Rental Clerk: : 1945 Requested by: Winsome Reyna Order Number: [id number] Celsa MD: DOROTHY WHALEN Intervals [place] Rate: 122 P: 999 NM: 0 QRS: 1 QRSD: 79 T: 134 QT: 315 QTc: 387 Interpretive Statements ATRIAL FIBRILLATION WITH RAPID VENTRICULAR RESPONSE Electronically Signed On 06-10-17 08:32:10 CDT by DOROTHY WHALEN [id number]
--- NOTE | 2017-06-10 08:06 | XRay Report ---
2 view chest 06/10/2017 4:00 AM Indication: Shortness of breath Comparison: June 08, 2017 0559 hours Findings: Cardiomediastinal contours are stable with sternotomy wires and midline and no change in central venous catheter placement. Large bilateral pleural effusions with resolution of the pulmonary edema pattern. No acute osseous abnormalities. Visualized upper abdomen demonstrates no acute pathology. Impression: 1. Resolved pulmonary edema pattern 2. Large bilateral pleural effusions PROCEDURE INTERPRETED AT [facility] DEPARTMENT OF RADIOLOGY Final Report Signed by: Alex Mendez
[2017-06-10] MEDS: INSULIN REGULAR 100 UNIT/ML SUBCUT SCH ×4 (08:48→20:26)
[2017-06-10] MEDS: hydrALAZINE 25 MG TABLET PO SCH ×2 (08:49→21:06)
[2017-06-10] MEDS: DOCUSATE SODIUM 100 MG CAPSULE PO SCH (08:49)
[2017-06-10] MEDS: metFORMIN 500 MG TABLET PO SCH ×2 (08:49→16:20)
[2017-06-10] MEDS: CARVEDILOL 12.5 MG TABLET PO SCH (08:49)
[2017-06-10] MEDS: FERROUS SULFATE 325 MG TABLET PO SCH (08:49)
[2017-06-10] MEDS: PANTOPRAZOLE 40 MG TABLET PO SCH (08:49)
[2017-06-10] MEDS: ASPIRIN EC 81 MG TABLET PO SCH (08:49)
[2017-06-10] MEDS: SPIRONOLACTONE 25 MG TABLET PO SCH ×2 (08:50→21:06)
[2017-06-10] MEDS: FUROSEMIDE 40 MG/4 ML VIAL IV SCH ×2 (08:50→16:19)
[2017-06-10] MEDS: CHLORHEXIDINE 0.12% ORAL RINSE 60 ML BOTTLE SWISH/SPIT SCH ×2 (08:57→21:09)
--- NOTE | 2017-06-10 13:42 | Cardiology Progress Note ---
Assessment and Plan (1) S/P CABG x 4 Status: Acute Assessment and plan: SEE PLAN OF CARE LISTED BELOW. Current Visit: Yes (2) Dyslipidemia Status: Chronic Assessment and plan: SEE PLAN OF CARE LISTED BELOW. Current Visit: Yes (3) Bilateral pleural effusion Status: Acute Assessment and plan: SEE PLAN OF CARE LISTED BELOW. Current Visit: Yes (4) Anemia Status: Acute Assessment and plan: SEE PLAN OF CARE LISTED BELOW. Current Visit: Yes (5) Diabetes Status: Chronic Assessment and plan: SEE PLAN OF CARE LISTED BELOW. Current Visit: Yes (6) Hypertension Status: Chronic Assessment and plan: SEE PLAN OF CARE LISTED BELOW. Current Visit: Yes (7) Coronary artery disease Status: Chronic Assessment and plan: SEE PLAN OF CARE LISTED BELOW. Current Visit: Yes (8) Cough Status: Acute Assessment and plan: SEE PLAN OF CARE LISTED BELOW. Current Visit: Yes (9) Postoperative atrial fibrillation Status: Resolved Assessment and plan: SEE PLAN OF CARE LISTED BELOW. Current Visit: Yes Cardiology - PN: Subj Interval history: MARINE OPERATIONS COORDINATOR: DR. MARTIN SUMMARY: Ms. Rhodes, 71WF, presented for elective CABG June 03, 2017 to be performed by Dr. Tapia. History of known coronary artery disease, hypertension, dyslipidemia (reported history of statin intolerance) and diabetes. Patient was admitted at the end of April 2017, underwent cardiac catheterization was found to have three-vessel coronary artery disease. June 04, 2017 patient underwent CABG 4 (WALTON - LAD, SVG - RCA, SVG - RI, SVG - OM). LVEF 55% per LV gram during cardiac catheterization June 28, 2017 2016 Patient is postop day #6 today. She was seen on the telemetry unit. She is doing well this morning. Continues to recover well. No complaints of chest pain, heaviness or tightness. Hemodynamically stable. She did have a short episode of atrial fibrillation with rapid ventricular response. Fortunately, this only lasted a short time. I do not feel that patient will require anticoagulation at this time. We will monitor her on the telemetry for recurrent atrial fibrillation. If this returns, we will need to initiate anticoagulation for stroke prevention. She is in sinus rhythm with heart rates in the 80'S currently. I will increase her beta blockade today. Encouraged to continue to use incentive spirometry. Surgical incisions healing well. I will further discuss with Dr. Sethi and await his additional recommendations. IMPRESSION AND PLAN 1. CAD S/P CABG - Status post revascularization. Tolerating Aspirin, beta- letha and lipid-lowering agent. HILARIO inhibitor discontinued due to cough. EF was preserved. 2. HYPERTENSION - Continue with beta-letha and hydralazine. Vital signs reflect well-controlled blood pressure at this point. 3. DYSLIPIDEMIA - Lipid lowering agent continues. LDL 57. History of statin intolerance but tolerating Pravastatin without difficulty. 4. DIABETES - Sliding scale insulin ordered. Accu-Cheks before meals and at bedtime. 5. ANEMIA - Stable postoperatively. We will continue to follow daily. 6. BILATERAL PLEURAL EFFUSION - X-ray this morning reveals continued bilateral pleural effusion. Resolved pulmonary edema. Continue spironolactone and Lasix. BUN is rising. I will transition patient to p.o. Lasix. She may need a thoracentesis at some point. 7. COUGH - HILARIO inhibitor discontinued per attending. Switch to hydralazine. 8. POSTOPERATIVE ATRIAL FIBRILLATION - Suspect this is related to underlying pericarditis. She only experienced atrial fibrillation for a short duration. Will increase patient's beta-blockade as heart rate will tolerate. Do not feel that patient will require anticoagulation at this time. We will monitor her on the telemetry for recurrent atrial fibrillation. If this returns, we will need to initiate anticoagulation for stroke prevention. Exam (Progress Note) - Constitutional Vitals: Period Temp Pulse Resp BP Sys/Morales Pulse Ox Last 24 Hr 97.9 F-98.9 F 68-126 16-20 108-155/64-77 92-100 Exam: General: Appears well with no apparent distress. Pleasant and cooperative. Appears comfortable. HEENT: PERRL, normocephalic, atraumatic. Mucous membranes moist. No jaundice noted. Conjunctiva moist and clear, sclerae anicteric Neck: No JVD/HJR, no thyromegaly or lymphadenopathy noted. No carotid bruit appreciated Cardiac: Regular rate and rhythm. Grade 1 systolic murmur Lungs: Decreased lung sounds in bilateral bases. Oxygen via nasal cannula Abdomen: Soft, bowel sounds normoactive. Nontender and nondistended. No abdominal bruit or thrill noted. No masses noted. Extremities: No clubbing, cyanosis noted. No edema noted. Upper extremity pulses 2+. Lower extremity pulses 2+. Capillary refill less than 3 seconds. Skin: No unusual lesions or rashes. No skin breakdown appreciated. Neuro: Awake, alert and oriented 3. Moves all extremities well without hemiparesis or paralysis. No essential tremor is appreciated. Surgical incisions healing well. Result/EKG - Labs CBC & BMP: 06/10/17 04:00 06/10/17 04:00 Lab Results: I have reviewed the past 24 hour labs Labs: Laboratory Results - last 24 hr 06/09/17 06/09/17 06/09/17 13:44 15:32 20:02 WBC RBC Hgb Hct MCV MCH MCHC RDW Plt Count MPV Neut % (Auto) Lymph % (Auto) [place] % (Auto) Eos % (Auto) Baso % (Auto) Neut # (Auto) Lymph # (Auto) [place] # (Auto) Eos # (Auto) Baso # (Auto) Immature Gran % Nucleated RBC % Immature Gran # Nucleated RBCs # Immature Plt Fraction Sodium Potassium Chloride Carbon Dioxide Anion Gap BUN Creatinine GFR Calculation BUN/Creatinine Ratio Glucose POC Glucose 265 H 271 H Calculated Osmolality Calcium Magnesium Total Bilirubin Direct Bilirubin Indirect Bilirubin AST ALT Alkaline Phosphatase Total Creatine Kinase CK-MB (CK-2) Troponin I B-Natriuretic Peptide 831 H Total Protein Albumin Globulin Albumin/Globulin Ratio 06/10/17 06/10/17 06/10/17 04:00 04:00 04:00 WBC 10.5 RBC 3.56 L Hgb 10.2 L Hct 29.9 L MCV 84.0 L MCH 29 MCHC 34.1 RDW 17.1 Plt Count 170 D MPV 10.9 Neut % (Auto) 70.5 Lymph % (Auto) 12.7 L [place] % (Auto) 12.1 Eos % (Auto) 2.5 Baso % (Auto) 0.5 Neut # (Auto) 7.4 Lymph # (Auto) 1.3 L [place] # (Auto) 1.3 H Eos # (Auto) 0.3 Baso # (Auto) 0.1 Immature Gran % 1.7 Nucleated RBC % 0.0 Immature Gran # 0.18 Nucleated RBCs # 0.00 Immature Plt Fraction 0.0 Sodium 138 137 Potassium 3.8 3.8 Chloride 99 98 Carbon Dioxide 31 31 Anion Gap 11.8 11.8 BUN 30 H 31 H Creatinine 0.70 0.70 GFR Calculation 85 85 BUN/Creatinine Ratio 42.00 H 44.00 H Glucose 186 H 187 H POC Glucose Calculated Osmolality 285.7 284.8 Calcium 8.5 8.5 Magnesium 1.6 L Total Bilirubin 1.00 Direct Bilirubin 0.190 Indirect Bilirubin 0.8 AST 10 ALT 14 Alkaline Phosphatase 82 Total Creatine Kinase 82 D CK-MB (CK-2) 1.8 Troponin I 1.320 H D B-Natriuretic Peptide Total Protein 5.5 L Albumin 2.6 L Globulin 2.9 Albumin/Globulin Ratio 0.8 L 06/10/17 06/10/17 07:11 11:29 WBC RBC Hgb Hct MCV MCH MCHC RDW Plt Count MPV Neut % (Auto) Lymph % (Auto) [place] % (Auto) Eos % (Auto) Baso % (Auto) Neut # (Auto) Lymph # (Auto) [place] # (Auto) Eos # (Auto) Baso # (Auto) Immature Gran % Nucleated RBC % Immature Gran # Nucleated RBCs # Immature Plt Fraction Sodium Potassium Chloride Carbon Dioxide Anion Gap BUN Creatinine GFR Calculation BUN/Creatinine Ratio Glucose POC Glucose 211 H 171 H Calculated Osmolality Calcium Magnesium Total Bilirubin Direct Bilirubin Indirect Bilirubin AST ALT Alkaline Phosphatase Total Creatine Kinase CK-MB (CK-2) Troponin I B-Natriuretic Peptide Total Protein Albumin Globulin Albumin/Globulin Ratio Quality Measures - VTE Contraindication to Pharmacological VTE Prophylaxis: High Risk of Bleeding Specialty Discharge - Follow Up or Referrals Follow up with: Gianni Tapia MD [Physician] - Santiago Sanz MD [Primary Care Provider] - Alvin Martin MD [Physician] -
[2017-06-10] MEDS ORDERED: FUROSEMIDE 40 MG/4 ML VIAL ONE (16:41)
[2017-06-10] MEDS ORDERED: CARVEDILOL 25 MG TABLET PO SCH (17:00)
[2017-06-10] MEDS: PRAVASTATIN 20 MG TABLET PO SCH (21:06)
[2017-06-11 04:11] LABS: Basophils % 0.4 % (0.0-0.8); Eosinophils # 0.2 10*3/uL (0.0-0.87); Eosinophils % 1.9 % (0.00-10.9); Hematocrit 27.7 VOL% (35.7-47.0); Hemoglobin 9.4 GM/DL (12.0-16.0); Immature Granulocytes Absolute 0.19 #; Lymphocytes # 1.1 10*3/uL (1.4-4.0); Lymphocytes % 12.1 % (21.3-54.2); Mean Corpuscular HGB Conc 33.9 GM/DL (32-36); Mean Corpuscular Hemoglobin 29 PG (27-34); Mean Corpuscular Volume 83.9 FL (87-102); Mean Platelet Volume 11.2 FL (9.6-12.0); Monocytes # 1.1 10*3/uL (0.11-0.8); Monocytes % 11.9 % (1.7-12.7); Neutrophils # 6.7 10*3/uL (1.4-7.4); Neutrophils % 71.7 % (38.7-73.9); Platelet Count 205 T/CUMM (130-400); Red Cell Distribution Width 17.2 % (9.3-17.3); White Blood Count 9.3 T/CUMM (4-12)
[2017-06-11 05:02] LABS: Alanine Aminotransferase 16 U/L (13-56); Albumin 2.6 G/DL (3.4-5.0); Alkaline Phosphatase 85 U/L (45-117); Aspartate Amino Transferase 11 U/L (0-37); Bilirubin,Indirect 0.7 MG/DL (0.0-1.0); Blood Urea Nitrogen 38 MG/DL (7-18); Calcium 8.5 MG/DL (8.5-10.1); Glucose 218 MG/DL (74-106); Magnesium 1.5 MG/DL (1.8-2.4); Potassium 3.8 MMOL/L (3.5-5.1); Sodium 136 MMOL/L (136-145); Total Protein 5.4 G/DL (6.4-8.3)
[2017-06-11 05:08] LABS: Troponin I Only 0.684 NG/ML (0.00-0.045)
--- NOTE | 2017-06-11 06:27 | Cardiothoracic Progress Note ---
Cardiothoracic Subjective Interval history: Patient is awake and alert this morning. She says she slept a little better last night although she is still having a fair amount of coughing and she claims that her Coreg is making her feel sick. I am not sure that is actually her medication that is affecting her but I will cut back on the dosage at her request for now. We may need to switch to her preoperative atenolol if she claims she cannot tolerate Coreg. Otherwise she is doing reasonably well. She still has some dyspnea and we will check her chest x-ray later this morning and make a decision regarding thoracentesis. Overall she is making slow but steady progress. Exam (Progress Note) - Constitutional Vitals: Period Temp Pulse Resp BP Sys/Morales Pulse Ox Last 24 Hr 96.6 F-98.5 F 81-97 16-20 124-140/66-76 92-99 Result/EKG - Labs CBC & BMP: 06/11/17 03:44 06/11/17 03:44 Labs: Laboratory Results - last 24 hr 06/10/17 06/10/17 06/10/17 07:11 11:29 15:30 WBC RBC Hgb Hct MCV MCH MCHC RDW Plt Count MPV Neut % (Auto) Lymph % (Auto) [place] % (Auto) Eos % (Auto) Baso % (Auto) Neut # (Auto) Lymph # (Auto) [place] # (Auto) Eos # (Auto) Baso # (Auto) Immature Gran % Nucleated RBC % Immature Gran # Nucleated RBCs # Immature Plt Fraction Sodium Potassium Chloride Carbon Dioxide Anion Gap BUN Creatinine GFR Calculation BUN/Creatinine Ratio Glucose POC Glucose 211 H 171 H 226 H Calculated Osmolality Calcium Magnesium Total Bilirubin Direct Bilirubin Indirect Bilirubin AST ALT Alkaline Phosphatase Total Creatine Kinase CK-MB (CK-2) Troponin I Total Protein Albumin Globulin Albumin/Globulin Ratio 06/10/17 06/11/17 06/11/17 19:29 03:44 03:44 WBC 9.3 RBC 3.30 L Hgb 9.4 L Hct 27.7 L MCV 83.9 L MCH 29 MCHC 33.9 RDW 17.2 Plt Count 205 D MPV 11.2 Neut % (Auto) 71.7 Lymph % (Auto) 12.1 L [place] % (Auto) 11.9 Eos % (Auto) 1.9 Baso % (Auto) 0.4 Neut # (Auto) 6.7 Lymph # (Auto) 1.1 L [place] # (Auto) 1.1 H Eos # (Auto) 0.2 Baso # (Auto) 0.0 Immature Gran % 2.0 Nucleated RBC % 0.0 Immature Gran # 0.19 Nucleated RBCs # 0.00 Immature Plt Fraction 0.0 Sodium 136 Potassium 3.8 Chloride 97 L Carbon Dioxide 32 Anion Gap 10.8 BUN 38 H Creatinine 0.80 GFR Calculation 70 BUN/Creatinine Ratio 47.00 H Glucose 218 H POC Glucose 148 H Calculated Osmolality 287.0 Calcium 8.5 Magnesium 1.5 L Total Bilirubin 0.90 Direct Bilirubin 0.240 H Indirect Bilirubin 0.7 AST 11 ALT 16 Alkaline Phosphatase 85 Total Creatine Kinase 84 CK-MB (CK-2) < 1.0 Troponin I 0.684 H D Total Protein 5.4 L Albumin 2.6 L Globulin 2.8 Albumin/Globulin Ratio 0.9 L Quality Measures - VTE Contraindication to Pharmacological VTE Prophylaxis: High Risk of Bleeding Specialty Discharge - Follow Up or Referrals Follow up with: Gianni Tapia MD [Physician] - Santiago Sanz MD [Primary Care Provider] - Alvin Martin MD [Physician] -
--- NOTE | 2017-06-11 06:33 | EKG Report ---
Stationary ECG Study [facility] Test Date: 06/10/2017 7:12:50 PM Pat Name: KWABENA BOSS Department: Room: 274 Gender: F Metal Furniture Assembler: : 1945 Requested by: Severino Sethi Order Number: [id number] Reading MD: SEVERINO SETHI Intervals [place] Rate: 93 P: 46 MO: 176 QRS: 37 QRSD: 77 T: 87 QT: 361 QTc: 412 Interpretive Statements SINUS RHYTHM Electronically Signed On 06-11-17 20:59:36 CDT by SEVERINO SETHI [email or web address]
[2017-06-11] MEDS: LEVOTHYROXINE 88 MCG TABLET PO SCH (06:36)
--- NOTE | 2017-06-11 07:29 | XRay Report ---
2 view chest 06/11/2017 4:00 AM Indication: Shortness of breath Comparison: Previous day at 0731 hours Findings: Cardiomediastinal contours are stable with sternotomy wires and midline and no change in line placement. Bilateral pleural effusions stable.. No acute osseous abnormalities. Visualized upper abdomen demonstrates no acute pathology. Impression: Stable bilateral pleural effusions PROCEDURE INTERPRETED AT [facility] DEPARTMENT OF RADIOLOGY Final Report Signed by: Alex Mendez
[2017-06-11] MEDS: ALBUTEROL/IPRATROPIUM 3 ML NEB RESP TX SCH ×4 (07:41→20:02)
--- NOTE | 2017-06-11 07:44 | EKG Report ---
Stationary ECG Study [facility] Test Date: 06/11/2017 7:42:47 AM Pat Name: KWABENA BOSS Department: Room: 274 Gender: F Foreign Languages Professor: JIL : 1945 Requested by: Gianni Pope Order Number: [id number] Reading MD: SEVERINO PLATA Intervals [place] Rate: 84 P: 1 NC: 164 QRS: 19 QRSD: 87 T: 39 QT: 364 QTc: 404 Interpretive Statements SINUS RHYTHM Electronically Signed On 06-11-17 21:09:27 CDT by SEVERINO PLATA [email or web address]
[2017-06-11] MEDS: INSULIN REGULAR 100 UNIT/ML SUBCUT SCH ×4 (08:30→22:26)
[2017-06-11] MEDS: FERROUS SULFATE 325 MG TABLET PO SCH (08:30)
[2017-06-11] MEDS: ASPIRIN EC 81 MG TABLET PO SCH (08:31)
[2017-06-11] MEDS: metFORMIN 500 MG TABLET PO SCH ×2 (08:31→17:53)
[2017-06-11] MEDS: CARVEDILOL 12.5 MG TABLET PO SCH ×2 (08:31→17:53)
[2017-06-11] MEDS: DOCUSATE SODIUM 100 MG CAPSULE PO SCH (08:31)
[2017-06-11] MEDS: SPIRONOLACTONE 25 MG TABLET PO SCH ×2 (08:31→22:18)
[2017-06-11] MEDS: CHLORHEXIDINE 0.12% ORAL RINSE 60 ML BOTTLE SWISH/SPIT SCH ×2 (08:32→22:19)
[2017-06-11] MEDS: PANTOPRAZOLE 40 MG TABLET PO SCH (08:32)
[2017-06-11] MEDS: FUROSEMIDE 40 MG TABLET PO SCH ×2 (08:32→17:09)
[2017-06-11] MEDS: hydrALAZINE 25 MG TABLET PO SCH ×2 (08:32→22:19)
--- NOTE | 2017-06-11 11:34 | Post Interventional Procedure ---
Pre-op diagnosis: s/p CABG, bilat pleural effusions Post-op diagnosis: same Procedure: Right thoracentesis Radiologist: Errlo Newberry Anesthesia: local Specimens: other (800 cc blood drained) Complications: none Condition: stable Description/Findings: hemothorax
--- NOTE | 2017-06-11 12:47 | Cardiology Progress Note ---
Assessment and Plan (1) S/P CABG x 4 Status: Acute Assessment and plan: SEE PLAN OF CARE LISTED BELOW. Current Visit: Yes (2) Dyslipidemia Status: Chronic Assessment and plan: SEE PLAN OF CARE LISTED BELOW. Current Visit: Yes (3) Bilateral pleural effusion Status: Acute Assessment and plan: SEE PLAN OF CARE LISTED BELOW. Current Visit: Yes (4) Anemia Status: Acute Assessment and plan: SEE PLAN OF CARE LISTED BELOW. Current Visit: Yes (5) Diabetes Status: Chronic Assessment and plan: SEE PLAN OF CARE LISTED BELOW. Current Visit: Yes (6) Hypertension Status: Chronic Assessment and plan: SEE PLAN OF CARE LISTED BELOW. Current Visit: Yes (7) Coronary artery disease Status: Chronic Assessment and plan: SEE PLAN OF CARE LISTED BELOW. Current Visit: Yes (8) Cough Status: Acute Assessment and plan: SEE PLAN OF CARE LISTED BELOW. Current Visit: Yes (9) Postoperative atrial fibrillation Status: Resolved Assessment and plan: SEE PLAN OF CARE LISTED BELOW. Current Visit: Yes Cardiology - PN: Subj Interval history: SIGNAL AND COMMUNICATIONS MAINTAINER: DR. MARTIN SUMMARY: Ms. Rhodes, 71WF, presented for elective CABG June 03, 2017 to be performed by Dr. Tapia. History of known coronary artery disease, hypertension, dyslipidemia (reported history of statin intolerance) and diabetes. Patient was admitted at the end of April 2017, underwent cardiac catheterization was found to have three-vessel coronary artery disease. June 04, 2017 patient underwent CABG 4 (WALTON - LAD, SVG - RCA, SVG - RI, SVG - OM). LVEF 55% per LV gram during cardiac catheterization June 28, 2017 2016 Patient is postop day #7 today. She was seen on the telemetry unit. She underwent thoracentesis today. 800 mL of bloody fluid was removed. Hemodynamically stable. No recurrent atrial fibrillation noted on athletic monitor. No need for anticoagulation at this time. We will continue to monitor telemetry for recurrent A. fib. Beta-blockade was decreased by attending as this was making her feel bad today. Do not feel that this is the beta-letha making her feel this way. Instructed that this medication is important for her condition. She verbalized understanding. We will continue beta-blockade at low dose. Reassess in the morning. Labs been reviewed. Increase sliding scale insulin to high intensity as blood sugars are trending up. Surgical incisions are healing well without signs of infection. Will continue current plan of care at this time. No further recommendations. I will further discuss with Dr. Sethi and await his additional recommendations. IMPRESSION AND PLAN 1. CAD S/P CABG - Status post revascularization. Tolerating Aspirin, beta- letha and lipid-lowering agent. HILARIO inhibitor discontinued due to cough. EF was preserved. 2. HYPERTENSION - Continue with beta-letha and hydralazine. Vital signs reflect well-controlled blood pressure at this point. 3. DYSLIPIDEMIA - Lipid lowering agent continues. LDL 57. History of statin intolerance but tolerating Pravastatin without difficulty. 4. DIABETES - Sliding scale insulin increased to high intensity. 5. ANEMIA - Stable. We will continue to follow daily. 6. BILATERAL PLEURAL EFFUSION - Underwent thoracentesis today. 800 mL bloody fluid removed. 7. COUGH - HILARIO inhibitor discontinued per attending. Switched to hydralazine. 8. POSTOPERATIVE ATRIAL FIBRILLATION -may have some underlying pericarditis. She only experienced atrial fibrillation for a short duration. No recurrent A. fib. Continue beta-blockade. Do not feel that patient will require anticoagulation at this time. We will monitor her on the telemetry for recurrent atrial fibrillation. If this returns, we will need to initiate anticoagulation for stroke prevention. Exam (Progress Note) - Constitutional Vitals: Period Temp Pulse Resp BP Sys/Morales Pulse Ox Last 24 Hr 96.6 F-98.8 F 80-97 16-20 97-140/41-76 85-100 Exam: General: Appears well with no apparent distress. Pleasant and cooperative. Appears comfortable. HEENT: PERRL, normocephalic, atraumatic. Mucous membranes moist. No jaundice noted. Conjunctiva moist and clear, sclerae anicteric Neck: No JVD/HJR, no thyromegaly or lymphadenopathy noted. No carotid bruit appreciated Cardiac: Regular rate and rhythm. Grade 1 systolic murmur Lungs: Clear to auscultation. Oxygen via nasal cannula Abdomen: Soft, bowel sounds normoactive. Nontender and nondistended. No abdominal bruit or thrill noted. No masses noted. Extremities: No clubbing, cyanosis noted. No edema noted. Upper extremity pulses 2+. Lower extremity pulses 2+. Capillary refill less than 3 seconds. Skin: No unusual lesions or rashes. No skin breakdown appreciated. Neuro: Awake, alert and oriented 3. Moves all extremities well without hemiparesis or paralysis. No essential tremor is appreciated. Surgical incisions healing well. Result/EKG - Labs CBC & BMP: 06/11/17 03:44 06/11/17 03:44 Lab Results: I have reviewed the past 24 hour labs Labs: Laboratory Results - last 24 hr 06/10/17 06/10/17 06/11/17 15:30 19:29 03:44 WBC 9.3 RBC 3.30 L Hgb 9.4 L Hct 27.7 L MCV 83.9 L MCH 29 MCHC 33.9 RDW 17.2 Plt Count 205 D MPV 11.2 Neut % (Auto) 71.7 Lymph % (Auto) 12.1 L [place] % (Auto) 11.9 Eos % (Auto) 1.9 Baso % (Auto) 0.4 Neut # (Auto) 6.7 Lymph # (Auto) 1.1 L [place] # (Auto) 1.1 H Eos # (Auto) 0.2 Baso # (Auto) 0.0 Immature Gran % 2.0 Nucleated RBC % 0.0 Immature Gran # 0.19 Nucleated RBCs # 0.00 Immature Plt Fraction 0.0 Sodium Potassium Chloride Carbon Dioxide Anion Gap BUN Creatinine GFR Calculation BUN/Creatinine Ratio Glucose POC Glucose 226 H 148 H Calculated Osmolality Calcium Magnesium Total Bilirubin Direct Bilirubin Indirect Bilirubin AST ALT Alkaline Phosphatase Total Creatine Kinase CK-MB (CK-2) Troponin I Total Protein Albumin Globulin Albumin/Globulin Ratio 06/11/17 06/11/17 06/11/17 03:44 07:33 12:21 WBC RBC Hgb Hct MCV MCH MCHC RDW Plt Count MPV Neut % (Auto) Lymph % (Auto) [place] % (Auto) Eos % (Auto) Baso % (Auto) Neut # (Auto) Lymph # (Auto) [place] # (Auto) Eos # (Auto) Baso # (Auto) Immature Gran % Nucleated RBC % Immature Gran # Nucleated RBCs # Immature Plt Fraction Sodium 136 Potassium 3.8 Chloride 97 L Carbon Dioxide 32 Anion Gap 10.8 BUN 38 H Creatinine 0.80 GFR Calculation 70 BUN/Creatinine Ratio 47.00 H Glucose 218 H POC Glucose 238 H 267 H Calculated Osmolality 287.0 Calcium 8.5 Magnesium 1.5 L Total Bilirubin 0.90 Direct Bilirubin 0.240 H Indirect Bilirubin 0.7 AST 11 ALT 16 Alkaline Phosphatase 85 Total Creatine Kinase 84 CK-MB (CK-2) < 1.0 Troponin I 0.684 H D Total Protein 5.4 L Albumin 2.6 L Globulin 2.8 Albumin/Globulin Ratio 0.9 L Quality Measures - VTE Contraindication to Pharmacological VTE Prophylaxis: High Risk of Bleeding Specialty Discharge - Follow Up or Referrals Follow up with: iGanni Tapia MD [Physician] - Santiago Sanz MD [Primary Care Provider] - Alvin Martin MD [Physician] -
--- NOTE | 2017-06-11 14:11 | Ultrasound Report ---
US thoracentesis Indication: Right pleural effusion. ULTRASOUND-GUIDED THORACENTESIS Description: A formal timeout was performed. Maximum sterile barrier technique was used. A right pleural effusion was identified with ultrasound. The right back was prepped and draped in sterile fashion. Under sonographic guidance, a 6 [place] pigtail catheter was advanced into the effusion using trocar technique. A captured sonographic image documents needle position. The needle was removed. Through the catheter, we obtained a total of 800 cc of bloody fluid. The catheter was removed. A bandage was placed at the puncture site. The patient tolerated the procedure well. Chest radiograph is pending. Impression: Ultrasound-guided thoracentesis. PROCEDURE INTERPRETED AT [facility] DEPARTMENT OF RADIOLOGY Final Report Signed by: Errol Newberry M.D.
--- NOTE | 2017-06-11 14:12 | XRay Report ---
XR chest post procedure Indication: Right thoracentesis. Post procedure chest radiograph, 2 views: Inspiratory and expiratory views of the chest were obtained. Right pleural effusion has decreased slightly in size since the earlier study from 0715 hours. Small left effusion is stable. No pneumothorax on either side. Impression: Slight reduction in size of right hemothorax. No pneumothorax. PROCEDURE INTERPRETED AT [facility] DEPARTMENT OF RADIOLOGY Final Report Signed by: Errol Newberry M.D.
[2017-06-11] MEDS: PRAVASTATIN 20 MG TABLET PO SCH (22:19)
[2017-06-12] MEDS: ALBUTEROL/IPRATROPIUM 3 ML NEB RESP TX SCH ×7 (00:18→20:15)
[2017-06-12 06:28] LABS: Basophils % 0.5 % (0.0-0.8); Eosinophils # 0.2 10*3/uL (0.0-0.87); Eosinophils % 1.9 % (0.00-10.9); Hemoglobin 8.6 GM/DL (12.0-16.0); Immature Granulocytes % 2.1 %; Immature Granulocytes Absolute 0.16 #; Lymphocytes # 1.2 10*3/uL (1.4-4.0); Mean Corpuscular HGB Conc 34.4 GM/DL (32-36); Mean Corpuscular Hemoglobin 29 PG (27-34); Mean Corpuscular Volume 84.5 FL (87-102); Mean Platelet Volume 11.4 FL (9.6-12.0); Monocytes # 0.9 10*3/uL (0.11-0.8); Monocytes % 11.3 % (1.7-12.7); Neutrophils # 5.4 10*3/uL (1.4-7.4); Neutrophils % 69.2 % (38.7-73.9); Platelet Count 216 T/CUMM (130-400); Red Blood Count 2.96 MC/CUMM (3.8-5.5); Red Cell Distribution Width 17.5 % (9.3-17.3); White Blood Count 7.8 T/CUMM (4-12)
[2017-06-12] MEDS: LEVOTHYROXINE 88 MCG TABLET PO SCH (06:57)
[2017-06-12 07:01] LABS: Calcium 8.1 MG/DL (8.5-10.1); Magnesium 1.6 MG/DL (1.8-2.4); Osmolality,Calculated 280.1 MOS/KG (273-304); Potassium 3.6 MMOL/L (3.5-5.1)
--- NOTE | 2017-06-12 08:42 | Cardiothoracic Progress Note ---
Cardiothoracic Subjective Interval history: Patient underwent thoracentesis of 800 cc of bloody fluid from the right chest yesterday. Appreciate Dr. Newberry's help. Symptomatically she feels considerably better and appears to be breathing somewhat more comfortably. We will repeat her chest x-ray in the morning and make a decision as to whether the left pleural effusion also needs to be addressed. We are going to try to increase her activities as tolerated today as she feels considerably stronger following thoracentesis. Overall her progress seems satisfactory. Exam (Progress Note) - Constitutional Vitals: Period Temp Pulse Resp BP Sys/Morales Pulse Ox Last 24 Hr 97 F-99.4 F 80-91 16-20 92-124/41-64 85-100 Result/EKG - Labs CBC & BMP: 06/12/17 04:48 06/12/17 04:48 Labs: Laboratory Results - last 24 hr 06/11/17 06/11/17 06/11/17 12:21 17:14 20:23 WBC RBC Hgb Hct MCV MCH MCHC RDW Plt Count MPV Neut % (Auto) Lymph % (Auto) [place] % (Auto) Eos % (Auto) Baso % (Auto) Neut # (Auto) Lymph # (Auto) [place] # (Auto) Eos # (Auto) Baso # (Auto) Immature Gran % Nucleated RBC % Immature Gran # Nucleated RBCs # Immature Plt Fraction Sodium Potassium Chloride Carbon Dioxide Anion Gap BUN Creatinine GFR Calculation BUN/Creatinine Ratio Glucose POC Glucose 267 H 137 H 212 H Calculated Osmolality Calcium Magnesium 06/12/17 06/12/17 04:48 04:48 WBC 7.8 RBC 2.96 L Hgb 8.6 L Hct 25.0 L MCV 84.5 L MCH 29 MCHC 34.4 RDW 17.5 H Plt Count 216 MPV 11.4 Neut % (Auto) 69.2 Lymph % (Auto) 15.0 L [place] % (Auto) 11.3 Eos % (Auto) 1.9 Baso % (Auto) 0.5 Neut # (Auto) 5.4 Lymph # (Auto) 1.2 L [place] # (Auto) 0.9 H Eos # (Auto) 0.2 Baso # (Auto) 0.0 Immature Gran % 2.1 Nucleated RBC % 0.0 Immature Gran # 0.16 Nucleated RBCs # 0.00 Immature Plt Fraction 0.0 Sodium 135 L Potassium 3.6 Chloride 97 L Carbon Dioxide 31 Anion Gap 10.6 BUN 33 H Creatinine 0.80 GFR Calculation 71 BUN/Creatinine Ratio 41.00 H Glucose 172 H POC Glucose Calculated Osmolality 280.1 Calcium 8.1 L Magnesium 1.6 L Quality Measures - VTE Contraindication to Pharmacological VTE Prophylaxis: High Risk of Bleeding Specialty Discharge - Follow Up or Referrals Follow up with: Gianni Tapia MD [Physician] - Santiago Sanz MD [Primary Care Provider] - Alvin Martin MD [Physician] -
[2017-06-12] MEDS: INSULIN REGULAR 100 UNIT/ML SUBCUT SCH ×4 (10:15→22:35)
[2017-06-12] MEDS: CHLORHEXIDINE 0.12% ORAL RINSE 60 ML BOTTLE SWISH/SPIT SCH ×2 (10:16→22:36)
[2017-06-12] MEDS: CARVEDILOL 12.5 MG TABLET PO SCH ×2 (10:17→16:39)
[2017-06-12] MEDS: metFORMIN 500 MG TABLET PO SCH ×2 (10:17→16:39)
[2017-06-12] MEDS: PANTOPRAZOLE 40 MG TABLET PO SCH (10:17)
[2017-06-12] MEDS: FUROSEMIDE 40 MG TABLET PO SCH ×2 (10:17→16:39)
[2017-06-12] MEDS: FERROUS SULFATE 325 MG TABLET PO SCH (10:17)
[2017-06-12] MEDS: ASPIRIN EC 81 MG TABLET PO SCH (10:17)
[2017-06-12] MEDS: SPIRONOLACTONE 25 MG TABLET PO SCH ×2 (10:18→22:35)
[2017-06-12] MEDS: DOCUSATE SODIUM 100 MG CAPSULE PO SCH (10:18)
[2017-06-12] MEDS ORDERED: AMIODARONE INJ 150 MG in DEXTROSE 5% 100 ML IV ONE (10:59)
[2017-06-12] MEDS ORDERED: AMIODARONE INJ 450 MG in DEXTROSE 5% 241 ML IV SCH (11:00)
[2017-06-12] MEDS ORDERED: AMIODARONE 150 MG/3 ML VIAL ONE (11:21)
--- NOTE | 2017-06-12 12:49 | Cardiology Progress Note ---
Assessment and Plan (1) S/P CABG x 4 Status: Acute Assessment and plan: SEE PLAN OF CARE LISTED BELOW. Current Visit: Yes (2) Dyslipidemia Status: Chronic Assessment and plan: SEE PLAN OF CARE LISTED BELOW. Current Visit: Yes (3) Bilateral pleural effusion Status: Acute Assessment and plan: SEE PLAN OF CARE LISTED BELOW. Current Visit: Yes (4) Anemia Status: Acute Assessment and plan: SEE PLAN OF CARE LISTED BELOW. Current Visit: Yes (5) Diabetes Status: Chronic Assessment and plan: SEE PLAN OF CARE LISTED BELOW. Current Visit: Yes (6) Hypertension Status: Chronic Assessment and plan: SEE PLAN OF CARE LISTED BELOW. Current Visit: Yes (7) Coronary artery disease Status: Chronic Assessment and plan: SEE PLAN OF CARE LISTED BELOW. Current Visit: Yes (8) Cough Status: Acute Assessment and plan: SEE PLAN OF CARE LISTED BELOW. Current Visit: Yes (9) Postoperative atrial fibrillation Status: Acute Assessment and plan: SEE PLAN OF CARE LISTED BELOW. Current Visit: Yes Cardiology - PN: Subj Interval history: OPERATING ROOM SPECIALIST: DR. MARTIN SUMMARY: Ms. Rhodes, 71WF, presented for elective CABG June 03, 2017 to be performed by Dr. Tapia. History of known coronary artery disease, hypertension, dyslipidemia (reported history of statin intolerance) and diabetes. Patient was admitted at the end of April 2017, underwent cardiac catheterization was found to have three-vessel coronary artery disease. June 04, 2017 patient underwent CABG 4 (WALTON - LAD, SVG - RCA, SVG - RI, SVG - OM). LVEF 55% per LV gram during cardiac catheterization June 28, 2017. She is doing well postoperatively. Underwent thoracentesis June 11, 2017. 800 mL of bloody fluid removed. She has developed postoperative atrial fibrillation. IV amiodarone has been initiated. 2016 Patient is postop day #8 today. She was seen on the telemetry unit. She is sitting up in chair in no acute distress. She continues to complain of chest soreness. She had borderline hypotension overnight. Hydralazine discontinued. Recurrent atrial fibrillation noted. IV amiodarone infusing. Beta-letha increased per attending. compliance monitor reviewed. Patient has maintained atrial fibrillation for several hours. She will need anticoagulation to reduce her stroke risk. Recommend Eliquis. We will hold off on adding this today as patient may go for thoracentesis tomorrow. Recommend Eliquis be initiated tomorrow after procedure if okay with attending. Encouraged incentive spirometry and increase activity. Surgical incisions healing well without signs of infection. Further plan and addendum to follow per Dr. Sethi. IMPRESSION AND PLAN 1. CAD S/P CABG - Status post revascularization. Tolerating Aspirin, beta- letha and lipid-lowering agent. HILARIO inhibitor discontinued due to cough. EF was preserved. 2. HYPERTENSION - Continue with beta-letha. Patient did have mild hypotension overnight. Hydralazine discontinued. 3. DYSLIPIDEMIA - LDL 57. History of statin intolerance but tolerating Pravastatin without difficulty. 4. DIABETES - Continue sliding scale insulin. 5. ANEMIA - Stable. We will continue to follow daily. No overt signs of bleeding. 6. BILATERAL PLEURAL EFFUSION - Underwent thoracentesis yesterday. 800 mL bloody fluid removed. Will repeat chest x-ray in the morning. Considering pleuracentesis again tomorrow. 7. COUGH - HILARIO inhibitor discontinued per attending. 8. PAROXYSMAL ATRIAL FIBRILLATION - May have some underlying pericarditis. Continue IV amiodarone. Beta-blockade dose increased per attending. Patient has maintained atrial fibrillation for several hours. She will need anticoagulation to reduce her stroke risk. Recommend Eliquis. We will hold off on adding this today as patient may go for thoracentesis tomorrow. Recommend Eliquis be initiated tomorrow after procedure if okay with attending. Exam (Progress Note) - Constitutional Vitals: Period Temp Pulse Resp BP Sys/Morales Pulse Ox Last 24 Hr 97.4 F-99.4 F 82-91 16-20 92-117/49-64 92-99 Exam: General: Appears well with no apparent distress. Pleasant and cooperative. Appears comfortable. HEENT: PERRL, normocephalic, atraumatic. Mucous membranes moist. No jaundice noted. Conjunctiva moist and clear, sclerae anicteric Neck: No JVD/HJR, no thyromegaly or lymphadenopathy noted. No carotid bruit appreciated Cardiac: Regular rate and rhythm. Grade 1 systolic murmur Lungs: Decreased lung sounds to bilateral bases. Oxygen via nasal cannula Abdomen: Soft, bowel sounds normoactive. Nontender and nondistended. No abdominal bruit or thrill noted. No masses noted. Extremities: No clubbing, cyanosis noted. No edema noted. Upper extremity pulses 2+. Lower extremity pulses 2+. Capillary refill less than 3 seconds. Skin: No unusual lesions or rashes. No skin breakdown appreciated. Neuro: Awake, alert and oriented 3. Moves all extremities well without hemiparesis or paralysis. No essential tremor is appreciated. Surgical incisions healing well without signs of infection. Result/EKG - Labs CBC & BMP: 06/12/17 04:48 06/12/17 04:48 Lab Results: I have reviewed the past 24 hour labs Labs: Laboratory Results - last 24 hr 06/11/17 06/11/17 06/12/17 17:14 20:23 04:48 WBC RBC Hgb Hct MCV MCH MCHC RDW Plt Count MPV Neut % (Auto) Lymph % (Auto) [place] % (Auto) Eos % (Auto) Baso % (Auto) Neut # (Auto) Lymph # (Auto) [place] # (Auto) Eos # (Auto) Baso # (Auto) Immature Gran % Nucleated RBC % Immature Gran # Nucleated RBCs # Immature Plt Fraction Sodium 135 L Potassium 3.6 Chloride 97 L Carbon Dioxide 31 Anion Gap 10.6 BUN 33 H Creatinine 0.80 GFR Calculation 71 BUN/Creatinine Ratio 41.00 H Glucose 172 H POC Glucose 137 H 212 H Calculated Osmolality 280.1 Calcium 8.1 L Magnesium 1.6 L 06/12/17 06/12/17 06/12/17 04:48 07:27 12:35 WBC 7.8 RBC 2.96 L Hgb 8.6 L Hct 25.0 L MCV 84.5 L MCH 29 MCHC 34.4 RDW 17.5 H Plt Count 216 MPV 11.4 Neut % (Auto) 69.2 Lymph % (Auto) 15.0 L [place] % (Auto) 11.3 Eos % (Auto) 1.9 Baso % (Auto) 0.5 Neut # (Auto) 5.4 Lymph # (Auto) 1.2 L [place] # (Auto) 0.9 H Eos # (Auto) 0.2 Baso # (Auto) 0.0 Immature Gran % 2.1 Nucleated RBC % 0.0 Immature Gran # 0.16 Nucleated RBCs # 0.00 Immature Plt Fraction 0.0 Sodium Potassium Chloride Carbon Dioxide Anion Gap BUN Creatinine GFR Calculation BUN/Creatinine Ratio Glucose POC Glucose 210 H 326 H Calculated Osmolality Calcium Magnesium Quality Measures - VTE Contraindication to Pharmacological VTE Prophylaxis: High Risk of Bleeding Specialty Discharge - Follow Up or Referrals Follow up with: Gianni Tapia MD [Physician] - Santiago Sanz MD [Primary Care Provider] - Alvin Martin MD [Physician] -
[2017-06-12] MEDS: AMIODARONE INJ 450 MG in DEXTROSE 5% 241 ML IV SCH (20:41)
[2017-06-12] MEDS: PRAVASTATIN 20 MG TABLET PO SCH (22:34)
[2017-06-13] MEDS: ALBUTEROL/IPRATROPIUM 3 ML NEB RESP TX SCH ×7 (00:18→23:57)
[2017-06-13 04:56] LABS: Basophils % 0.3 % (0.0-0.8); Eosinophils # 0.2 10*3/uL (0.0-0.87); Hematocrit 24.7 VOL% (35.7-47.0); Hemoglobin 8.4 GM/DL (12.0-16.0); Immature Granulocytes Absolute 0.18 #; Lymphocytes # 1.2 10*3/uL (1.4-4.0); Lymphocytes % 13.2 % (21.3-54.2); Mean Corpuscular Hemoglobin 29 PG (27-34); Mean Platelet Volume 10.3 FL (9.6-12.0); Monocytes % 10.9 % (1.7-12.7); NRBC # 0.03 10*3/uL; Neutrophils # 6.6 10*3/uL (1.4-7.4); Neutrophils % 71.6 % (38.7-73.9); Platelet Count 236 T/CUMM (130-400); Red Blood Count 2.94 MC/CUMM (3.8-5.5); Red Cell Distribution Width 17.5 % (9.3-17.3); White Blood Count 9.2 T/CUMM (4-12)
[2017-06-13 05:24] LABS: Calcium 8.2 MG/DL (8.5-10.1); Magnesium 1.7 MG/DL (1.8-2.4); Osmolality,Calculated 277.1 MOS/KG (273-304); Potassium 3.6 MMOL/L (3.5-5.1)
[2017-06-13] MEDS: LEVOTHYROXINE 88 MCG TABLET PO SCH (07:08)
--- NOTE | 2017-06-13 09:02 | XRay Report ---
2 view chest 06/13/2017 731 AM Indication: Shortness of breath Comparison: June 11, 2017 at 1112 hours Findings: Cardiomediastinal contours are stable with sternotomy wires and midline and no change in line placement. No significant change in the bilateral pleural effusions. Allowing for difference in technique and inspiration. No acute osseous abnormalities. Visualized upper abdomen demonstrates no acute pathology. Impression: No significant change in appearance of bilateral pleural effusions PROCEDURE INTERPRETED AT [facility] DEPARTMENT OF RADIOLOGY Final Report Signed by: Alex Mendez
--- NOTE | 2017-06-13 09:04 | Cardiothoracic Progress Note ---
Cardiothoracic Subjective Interval history: Patient looks and feels fine. She is breathing more comfortably since her thoracentesis. Her chest x-ray continues to look clear with small bilateral pleural effusions which I do not feel need to be tapped at this point. We will try to avoid anticoagulation if possible as she has converted to normal sinus rhythm.. She continues to complain about Coreg as she says that the medication makes her feel "bad". She was on atenolol per Dr. Martin prior to surgery and she felt that she tolerated this better than the Coreg. At her request I am going to switch her back to atenolol. Otherwise we will gradually try to increase her activity as she tolerates it. Exam (Progress Note) - Constitutional Vitals: Period Temp Pulse Resp BP Sys/Morales Pulse Ox Last 24 Hr 96.2 F-99.1 F 73-111 16-20 100-135/45-63 92-99 Result/EKG - Labs CBC & BMP: 06/13/17 04:27 06/13/17 04:27 Labs: Laboratory Results - last 24 hr 06/12/17 06/12/17 06/12/17 12:35 15:44 19:56 WBC RBC Hgb Hct MCV MCH MCHC RDW Plt Count MPV Neut % (Auto) Lymph % (Auto) [place] % (Auto) Eos % (Auto) Baso % (Auto) Neut # (Auto) Lymph # (Auto) [place] # (Auto) Eos # (Auto) Baso # (Auto) Immature Gran % Nucleated RBC % Immature Gran # Nucleated RBCs # Immature Plt Fraction Sodium Potassium Chloride Carbon Dioxide Anion Gap BUN Creatinine GFR Calculation BUN/Creatinine Ratio Glucose POC Glucose 326 H 203 H 229 H Calculated Osmolality Calcium Magnesium 06/13/17 06/13/17 06/13/17 04:27 04:27 07:16 WBC 9.2 RBC 2.94 L Hgb 8.4 L Hct 24.7 L MCV 84.0 L MCH 29 MCHC 34.0 RDW 17.5 H Plt Count 236 MPV 10.3 Neut % (Auto) 71.6 Lymph % (Auto) 13.2 L [place] % (Auto) 10.9 Eos % (Auto) 2.0 Baso % (Auto) 0.3 Neut # (Auto) 6.6 Lymph # (Auto) 1.2 L [place] # (Auto) 1.0 H Eos # (Auto) 0.2 Baso # (Auto) 0.0 Immature Gran % 2.0 Nucleated RBC % 0.3 Immature Gran # 0.18 Nucleated RBCs # 0.03 Immature Plt Fraction 0.0 Sodium 135 L Potassium 3.6 Chloride 96 L Carbon Dioxide 31 Anion Gap 11.6 BUN 29 H Creatinine 0.80 GFR Calculation 71 BUN/Creatinine Ratio 36.00 H Glucose 134 H POC Glucose 209 H Calculated Osmolality 277.1 Calcium 8.2 L Magnesium 1.7 L Quality Measures - VTE Contraindication to Pharmacological VTE Prophylaxis: High Risk of Bleeding Specialty Discharge - Follow Up or Referrals Follow up with: Gianni Tapia MD [Physician] - Santiago Sanz MD [Primary Care Provider] - Alvin Martin MD [Physician] -
[2017-06-13] MEDS: metFORMIN 500 MG TABLET PO SCH ×2 (09:40→16:36)
[2017-06-13] MEDS: FUROSEMIDE 40 MG TABLET PO SCH ×2 (09:40→16:36)
[2017-06-13] MEDS: CHLORHEXIDINE 0.12% ORAL RINSE 60 ML BOTTLE SWISH/SPIT SCH ×2 (09:41→21:13)
[2017-06-13] MEDS: DOCUSATE SODIUM 100 MG CAPSULE PO SCH (09:41)
[2017-06-13] MEDS: FERROUS SULFATE 325 MG TABLET PO SCH (09:41)
[2017-06-13] MEDS: PANTOPRAZOLE 40 MG TABLET PO SCH (09:41)
[2017-06-13] MEDS: SPIRONOLACTONE 25 MG TABLET PO SCH ×2 (09:41→21:07)
[2017-06-13] MEDS: ASPIRIN EC 81 MG TABLET PO SCH (09:41)
[2017-06-13] MEDS: AMIODARONE INJ 450 MG in DEXTROSE 5% 241 ML IV SCH (09:51)
[2017-06-13] MEDS: INSULIN REGULAR 100 UNIT/ML SUBCUT SCH ×4 (10:12→21:13)
[2017-06-13] MEDS: CARVEDILOL 12.5 MG TABLET PO SCH (10:12)
--- NOTE | 2017-06-13 12:17 | Cardiology Progress Note ---
Assessment and Plan (1) S/P CABG x 4 Status: Acute Assessment and plan: SEE PLAN OF CARE LISTED BELOW. Current Visit: Yes (2) Dyslipidemia Status: Chronic Assessment and plan: SEE PLAN OF CARE LISTED BELOW. Current Visit: Yes (3) Bilateral pleural effusion Status: Acute Assessment and plan: SEE PLAN OF CARE LISTED BELOW. Current Visit: Yes (4) Anemia Status: Acute Assessment and plan: SEE PLAN OF CARE LISTED BELOW. Current Visit: Yes (5) Diabetes Status: Chronic Assessment and plan: SEE PLAN OF CARE LISTED BELOW. Current Visit: Yes (6) Hypertension Status: Chronic Assessment and plan: SEE PLAN OF CARE LISTED BELOW. Current Visit: Yes (7) Coronary artery disease Status: Chronic Assessment and plan: SEE PLAN OF CARE LISTED BELOW. Current Visit: Yes (8) Cough Status: Acute Assessment and plan: SEE PLAN OF CARE LISTED BELOW. Current Visit: Yes (9) Postoperative atrial fibrillation Status: Resolved Assessment and plan: SEE PLAN OF CARE LISTED BELOW. Current Visit: Yes Cardiology - PN: Subj Interval history: SURVEYOR MINE: DR. MARTIN SUMMARY: Ms. Rhodes, 71WF, presented for elective CABG June 03, 2017 to be performed by Dr. Tapia. History of known coronary artery disease, hypertension, dyslipidemia (reported history of statin intolerance) and diabetes. Patient was admitted at the end of April 2017, underwent cardiac catheterization was found to have three-vessel coronary artery disease. June 04, 2017 patient underwent CABG 4 (WALTON - LAD, SVG - RCA, SVG - RI, SVG - OM). LVEF 55% per LV gram during cardiac catheterization June 28, 2017. She is doing well postoperatively. Underwent thoracentesis June 11, 2017. 800 mL of bloody fluid removed. She has developed postoperative atrial fibrillation. IV amiodarone has been initiated. 2016 Patient is postop day #9 today. She was seen on the telemetry unit. She is slow to improve. She went back into atrial fibrillation with rapid ventricular response yesterday morning. She was started on amiodarone drip. She has since chemically cardioverted back to normal sinus rhythm. She will be transitioned to p.o. amiodarone today. Checks x-ray reviewed and reveal small bilateral pleural effusions, will not require thoracentesis at this time. Patient requested her beta-letha to be switched back to atenolol. This was completed per Dr. Tapia this morning. She continues to have chest soreness. She reports that she was unable to ambulate the halls yesterday she was connected to an IV drip. Her appetite continues to be poor. I have encouraged her to drink Ensure. Encourage incentive spirometry. He was dynamically stable. Dr. Tapia wishes to hold off on adding anticoagulation at this time. Chads vasc score 5. Patient is a relatively high stroke risk. If she has recurrent atrial fibrillation would recommend initiation of Eliquis to lower her stroke risk. Surgical incisions are healing well without signs of infection. I will further discuss with Dr. Sethi and await his additional recommendations. IMPRESSION AND PLAN 1. CAD S/P CABG - Status post revascularization. Tolerating Aspirin, beta- letha and lipid-lowering agent. HILARIO inhibitor discontinued due to cough. EF was preserved. Increase activity as tolerated. 2. HYPERTENSION - Continue with beta-letha. Blood pressure well controlled. 3. DYSLIPIDEMIA - LDL 57. History of statin intolerance but tolerating Pravastatin without difficulty. 4. DIABETES - Continue sliding scale insulin. 5. ANEMIA - We will continue to follow daily. No overt signs of bleeding. 6. BILATERAL PLEURAL EFFUSION - Underwent thoracentesis 06/11/17. 800 mL bloody fluid removed. Chest x-ray reveals small bilateral pleural effusions will not require thoracentesis at this time. Continue p.o. Lasix. 7. COUGH - HILARIO inhibitor discontinued per attending. 8. PAROXYSMAL ATRIAL FIBRILLATION - May have some underlying pericarditis. Now converted back to sinus rhythm. Transition to p.o. amiodarone today. Continue beta-letha. Dr. Tapia wishes to hold off on adding anticoagulation at this time. Chads vasc score 5. Patient is a relatively high stroke risk. If she has recurrent atrial fibrillation would recommend initiation of Eliquis to lower her stroke risk. Exam (Progress Note) - Constitutional Vitals: Period Temp Pulse Resp BP Sys/Morales Pulse Ox Last 24 Hr 96.2 F-98.7 F 73-111 16-20 101-135/45-68 92-100 Exam: General: Appears well with no apparent distress. Pleasant and cooperative. Appears comfortable. HEENT: PERRL, normocephalic, atraumatic. Mucous membranes moist. No jaundice noted. Conjunctiva moist and clear, sclerae anicteric Neck: No JVD/HJR, no thyromegaly or lymphadenopathy noted. No carotid bruit appreciated Cardiac: Regular rate and rhythm. Grade 1 systolic murmur. Soft rub. Lungs: Decreased lung sounds to bilateral bases. Oxygen via nasal cannula Abdomen: Soft, bowel sounds normoactive. Nontender and nondistended. No abdominal bruit or thrill noted. No masses noted. Extremities: No clubbing, cyanosis noted. No edema noted. Upper extremity pulses 2+. Lower extremity pulses 2+. Capillary refill less than 3 seconds. Skin: No unusual lesions or rashes. No skin breakdown appreciated. Neuro: Awake, alert and oriented 3. Moves all extremities well without hemiparesis or paralysis. No essential tremor is appreciated. Surgical incisions healing well without signs of infection. Result/EKG - Labs CBC & BMP: 06/13/17 04:27 06/13/17 04:27 Lab Results: I have reviewed the past 24 hour labs Labs: Laboratory Results - last 24 hr 06/12/17 06/12/17 06/12/17 12:35 15:44 19:56 WBC RBC Hgb Hct MCV MCH MCHC RDW Plt Count MPV Neut % (Auto) Lymph % (Auto) [place] % (Auto) Eos % (Auto) Baso % (Auto) Neut # (Auto) Lymph # (Auto) [place] # (Auto) Eos # (Auto) Baso # (Auto) Immature Gran % Nucleated RBC % Immature Gran # Nucleated RBCs # Immature Plt Fraction Sodium Potassium Chloride Carbon Dioxide Anion Gap BUN Creatinine GFR Calculation BUN/Creatinine Ratio Glucose POC Glucose 326 H 203 H 229 H Calculated Osmolality Calcium Magnesium 06/13/17 06/13/17 06/13/17 04:27 04:27 07:16 WBC 9.2 RBC 2.94 L Hgb 8.4 L Hct 24.7 L MCV 84.0 L MCH 29 MCHC 34.0 RDW 17.5 H Plt Count 236 MPV 10.3 Neut % (Auto) 71.6 Lymph % (Auto) 13.2 L [place] % (Auto) 10.9 Eos % (Auto) 2.0 Baso % (Auto) 0.3 Neut # (Auto) 6.6 Lymph # (Auto) 1.2 L [place] # (Auto) 1.0 H Eos # (Auto) 0.2 Baso # (Auto) 0.0 Immature Gran % 2.0 Nucleated RBC % 0.3 Immature Gran # 0.18 Nucleated RBCs # 0.03 Immature Plt Fraction 0.0 Sodium 135 L Potassium 3.6 Chloride 96 L Carbon Dioxide 31 Anion Gap 11.6 BUN 29 H Creatinine 0.80 GFR Calculation 71 BUN/Creatinine Ratio 36.00 H Glucose 134 H POC Glucose 209 H Calculated Osmolality 277.1 Calcium 8.2 L Magnesium 1.7 L 06/13/17 11:41 WBC RBC Hgb Hct MCV MCH MCHC RDW Plt Count MPV Neut % (Auto) Lymph % (Auto) [place] % (Auto) Eos % (Auto) Baso % (Auto) Neut # (Auto) Lymph # (Auto) [place] # (Auto) Eos # (Auto) Baso # (Auto) Immature Gran % Nucleated RBC % Immature Gran # Nucleated RBCs # Immature Plt Fraction Sodium Potassium Chloride Carbon Dioxide Anion Gap BUN Creatinine GFR Calculation BUN/Creatinine Ratio Glucose POC Glucose 300 H Calculated Osmolality Calcium Magnesium Quality Measures - VTE Contraindication to Pharmacological VTE Prophylaxis: High Risk of Bleeding Specialty Discharge - Follow Up or Referrals Follow up with: Gianni Tapia MD [Physician] - Santiago Sanz MD [Primary Care Provider] - Alvin Martin MD [Physician] -
[2017-06-13] MEDS: AMIODARONE 200 MG TABLET PO SCH ×2 (12:36→21:07)
[2017-06-13] MEDS: ATENOLOL 25 MG TABLET PO SCH (21:07)
[2017-06-13] MEDS: PRAVASTATIN 20 MG TABLET PO SCH (21:07)
[2017-06-14] MEDS: ALBUTEROL/IPRATROPIUM 3 ML NEB RESP TX SCH ×5 (04:08→19:08)
[2017-06-14 04:55] LABS: Basophils % 0.3 % (0.0-0.8); Eosinophils # 0.2 10*3/uL (0.0-0.87); Eosinophils % 1.7 % (0.00-10.9); Hematocrit 25.6 VOL% (35.7-47.0); Hemoglobin 8.6 GM/DL (12.0-16.0); Immature Granulocytes % 1.9 %; Immature Granulocytes Absolute 0.19 #; Lymphocytes # 1.2 10*3/uL (1.4-4.0); Lymphocytes % 11.5 % (21.3-54.2); Mean Corpuscular HGB Conc 33.6 GM/DL (32-36); Mean Corpuscular Hemoglobin 29 PG (27-34); Mean Corpuscular Volume 84.8 FL (87-102); Mean Platelet Volume 10.6 FL (9.6-12.0); Monocytes # 0.9 10*3/uL (0.11-0.8); Monocytes % 9.3 % (1.7-12.7); NRBC # 0.02 10*3/uL; Neutrophils # 7.7 10*3/uL (1.4-7.4); Neutrophils % 75.3 % (38.7-73.9); Platelet Count 292 T/CUMM (130-400); Red Blood Count 3.02 MC/CUMM (3.8-5.5); Red Cell Distribution Width 17.6 % (9.3-17.3); White Blood Count 10.2 T/CUMM (4-12)
[2017-06-14 05:26] LABS: Calcium 8.3 MG/DL (8.5-10.1); Magnesium 1.6 MG/DL (1.8-2.4); Osmolality,Calculated 278.1 MOS/KG (273-304); Potassium 4.2 MMOL/L (3.5-5.1)
[2017-06-14] MEDS: LEVOTHYROXINE 88 MCG TABLET PO SCH (06:13)
[2017-06-14] MEDS: SPIRONOLACTONE 25 MG TABLET PO SCH ×2 (08:48→21:51)
[2017-06-14] MEDS: AMIODARONE 200 MG TABLET PO SCH ×2 (08:48→21:51)
[2017-06-14] MEDS: FERROUS SULFATE 325 MG TABLET PO SCH (08:48)
[2017-06-14] MEDS: ATENOLOL 25 MG TABLET PO SCH ×2 (08:48→21:51)
[2017-06-14] MEDS: FUROSEMIDE 40 MG TABLET PO SCH ×2 (08:48→17:17)
[2017-06-14] MEDS: DOCUSATE SODIUM 100 MG CAPSULE PO SCH (08:48)
[2017-06-14] MEDS: ASPIRIN EC 81 MG TABLET PO SCH (08:48)
[2017-06-14] MEDS: metFORMIN 500 MG TABLET PO SCH ×2 (08:48→17:17)
[2017-06-14] MEDS: PANTOPRAZOLE 40 MG TABLET PO SCH (08:49)
[2017-06-14] MEDS: CHLORHEXIDINE 0.12% ORAL RINSE 60 ML BOTTLE SWISH/SPIT SCH ×2 (08:49→21:52)
[2017-06-14] MEDS: INSULIN REGULAR 100 UNIT/ML SUBCUT SCH ×4 (08:49→21:50)
--- NOTE | 2017-06-14 08:56 | Cardiothoracic Progress Note ---
Cardiothoracic Subjective Interval history: Patient remains in sinus rhythm. She is feeling some better although still has persistent cough. Vital signs have been stable and she is breathing comfortably at the present time. We will try to increase her activity as she tolerates it but overall her progress appears satisfactory. Exam (Progress Note) - Constitutional Vitals: Period Temp Pulse Resp BP Sys/Morales Pulse Ox Last 24 Hr 96.9 F-99.4 F 63-86 16-20 109-145/54-68 94-100 Result/EKG - Labs CBC & BMP: 06/14/17 04:20 06/14/17 04:20 Labs: Laboratory Results - last 24 hr 06/13/17 06/13/17 06/13/17 11:41 16:15 18:33 WBC RBC Hgb Hct MCV MCH MCHC RDW Plt Count MPV Neut % (Auto) Lymph % (Auto) [place] % (Auto) Eos % (Auto) Baso % (Auto) Neut # (Auto) Lymph # (Auto) [place] # (Auto) Eos # (Auto) Baso # (Auto) Immature Gran % Nucleated RBC % Immature Gran # Nucleated RBCs # Immature Plt Fraction Sodium Potassium Chloride Carbon Dioxide Anion Gap BUN Creatinine GFR Calculation BUN/Creatinine Ratio Glucose POC Glucose 300 H 130 H 141 H Calculated Osmolality Calcium Magnesium 06/14/17 06/14/17 06/14/17 04:20 04:20 08:16 WBC 10.2 RBC 3.02 L Hgb 8.6 L Hct 25.6 L MCV 84.8 L MCH 29 MCHC 33.6 RDW 17.6 H Plt Count 292 D MPV 10.6 Neut % (Auto) 75.3 H Lymph % (Auto) 11.5 L [place] % (Auto) 9.3 Eos % (Auto) 1.7 Baso % (Auto) 0.3 Neut # (Auto) 7.7 H Lymph # (Auto) 1.2 L [place] # (Auto) 0.9 H Eos # (Auto) 0.2 Baso # (Auto) 0.0 Immature Gran % 1.9 Nucleated RBC % 0.2 Immature Gran # 0.19 Nucleated RBCs # 0.02 Immature Plt Fraction 0.0 Sodium 135 L Potassium 4.2 Chloride 96 L Carbon Dioxide 33 H Anion Gap 10.2 BUN 25 H Creatinine 0.90 GFR Calculation 62 BUN/Creatinine Ratio 27.00 H Glucose 181 H POC Glucose 209 H Calculated Osmolality 278.1 Calcium 8.3 L Magnesium 1.6 L Quality Measures - VTE Contraindication to Pharmacological VTE Prophylaxis: High Risk of Bleeding Specialty Discharge - Follow Up or Referrals Follow up with: Gianni Tapia MD [Physician] - Santiago Sanz MD [Primary Care Provider] - Alvin Martin MD [Physician] -
--- NOTE | 2017-06-14 12:17 | Cardiology Progress Note ---
Assessment and Plan (1) Coronary artery disease Status: Chronic Assessment and plan: 71-year-old female, status post CABG 4, recovering slowly. Postop A. fib, pleural effusion, status post thoracocentesis. Anemia, diabetes, hypertension, hyperlipidemia. 06/11: Thoracocentesis -Continue aspirin, statin. -cont po amiodarone load -Continue atenolol. She did not feel well with Coreg -EF was preserved. -Continue p.o. Lasix -Defer anticoagulation at this time,had recent thoracocentesis, still quite anemic Current Visit: Yes (2) Postoperative atrial fibrillation Status: Resolved Current Visit: Yes Cardiology - PN: Subj Interval history: She is feeling better, chest pain improved. Remained in sinus rhythm. Exam (Progress Note) - Constitutional Vitals: Period Temp Pulse Resp BP Sys/Morales Pulse Ox Last 24 Hr 96.9 F-99.4 F 63-86 16-20 109-145/54-64 94-99 General appearance: normal weight, no acute distress - Head Head exam: Present: normal inspection, normocephalic - Eye Eye exam: Absent: conjunctival injection, scleral icterus Pupils: Absent: dilated, fixed - ENT ENT exam: Absent: normal external ear exam - Neck Neck exam: Present: normal inspection - Respiratory Respiratory exam: Present: decreased breath sounds. Absent: prolonged expiratory phase, rhonchi, wheezes - Cardiovascular Cardiovascular exam: Present: regular rate and rhythm, systolic murmur. Absent : JVD - GI/Abdominal GI/Abdominal exam: Present: normal bowel sounds. Absent: distended - Extremities Exam Extremities exam: Present: normal inspection, normal capillary refill, other ( Incision is dry, intact) - Back Exam Back exam: Present: normal inspection - Neurological Exam Neurological exam: Present: alert, oriented X3 - Psychiatric Psychiatric exam: Present: normal affect, normal mood - Skin Skin exam: Present: normal color, warm. Absent: cyanosis Result/EKG - Labs CBC & BMP: 06/14/17 04:20 06/14/17 04:20 Lab Results: I have reviewed the past 24 hour labs Labs: Laboratory Results - last 24 hr 06/13/17 06/13/17 06/14/17 16:15 18:33 04:20 WBC 10.2 RBC 3.02 L Hgb 8.6 L Hct 25.6 L MCV 84.8 L MCH 29 MCHC 33.6 RDW 17.6 H Plt Count 292 D MPV 10.6 Neut % (Auto) 75.3 H Lymph % (Auto) 11.5 L [place] % (Auto) 9.3 Eos % (Auto) 1.7 Baso % (Auto) 0.3 Neut # (Auto) 7.7 H Lymph # (Auto) 1.2 L [place] # (Auto) 0.9 H Eos # (Auto) 0.2 Baso # (Auto) 0.0 Immature Gran % 1.9 Nucleated RBC % 0.2 Immature Gran # 0.19 Nucleated RBCs # 0.02 Immature Plt Fraction 0.0 Sodium Potassium Chloride Carbon Dioxide Anion Gap BUN Creatinine GFR Calculation BUN/Creatinine Ratio Glucose POC Glucose 130 H 141 H Calculated Osmolality Calcium Magnesium 06/14/17 06/14/17 06/14/17 04:20 08:16 11:51 WBC RBC Hgb Hct MCV MCH MCHC RDW Plt Count MPV Neut % (Auto) Lymph % (Auto) [place] % (Auto) Eos % (Auto) Baso % (Auto) Neut # (Auto) Lymph # (Auto) [place] # (Auto) Eos # (Auto) Baso # (Auto) Immature Gran % Nucleated RBC % Immature Gran # Nucleated RBCs # Immature Plt Fraction Sodium 135 L Potassium 4.2 Chloride 96 L Carbon Dioxide 33 H Anion Gap 10.2 BUN 25 H Creatinine 0.90 GFR Calculation 62 BUN/Creatinine Ratio 27.00 H Glucose 181 H POC Glucose 209 H 231 H Calculated Osmolality 278.1 Calcium 8.3 L Magnesium 1.6 L - EKG EKG results: interpreted by me Quality Measures - VTE Contraindication to Pharmacological VTE Prophylaxis: High Risk of Bleeding Specialty Discharge - Follow Up or Referrals Follow up with: Gianni Tapia MD [Physician] - Santiago Sanz MD [Primary Care Provider] - Alvin Martin MD [Physician] -
[2017-06-14] MEDS: INSULIN GLARGINE 100 UNIT/ML SUBCUT SCH (21:51)
[2017-06-14] MEDS: PRAVASTATIN 20 MG TABLET PO SCH (21:51)
[2017-06-15] MEDS: ALBUTEROL/IPRATROPIUM 3 ML NEB RESP TX SCH ×7 (00:02→23:28)
[2017-06-15] MEDS: LEVOTHYROXINE 88 MCG TABLET PO SCH (06:16)
[2017-06-15 06:17] LABS: Basophils % 0.4 % (0.0-0.8); Eosinophils # 0.2 10*3/uL (0.0-0.87); Eosinophils % 1.8 % (0.00-10.9); Hematocrit 26.6 VOL% (35.7-47.0); Hemoglobin 8.8 GM/DL (12.0-16.0); Immature Granulocytes % 1.6 %; Immature Granulocytes Absolute 0.15 #; Lymphocytes # 1.2 10*3/uL (1.4-4.0); Mean Corpuscular HGB Conc 33.1 GM/DL (32-36); Mean Corpuscular Hemoglobin 29 PG (27-34); Mean Corpuscular Volume 86.6 FL (87-102); Mean Platelet Volume 10.6 FL (9.6-12.0); Monocytes # 0.9 10*3/uL (0.11-0.8); Monocytes % 9.7 % (1.7-12.7); NRBC # 0.03 10*3/uL; Neutrophils # 6.8 10*3/uL (1.4-7.4); Neutrophils % 73.5 % (38.7-73.9); Platelet Count 326 T/CUMM (130-400); Red Blood Count 3.07 MC/CUMM (3.8-5.5); Red Cell Distribution Width 17.7 % (9.3-17.3); White Blood Count 9.3 T/CUMM (4-12)
[2017-06-15 06:40] LABS: Calcium 8.6 MG/DL (8.5-10.1); Magnesium 1.6 MG/DL (1.8-2.4); Osmolality,Calculated 278.1 MOS/KG (273-304)
--- NOTE | 2017-06-15 08:10 | Cardiothoracic Progress Note ---
Cardiothoracic Subjective Interval history: Patient looks and feels some better. She still has a persistent cough but I think this is slowly getting better. Vital signs have been stable and she is breathing comfortably. We will continue to increase her activities as tolerated and her pacing wires have been discontinued. Hopefully she will be ready for discharge in the next couple of days. Exam (Progress Note) - Constitutional Vitals: Period Temp Pulse Resp BP Sys/Morales Pulse Ox Last 24 Hr 98.5 F-99.2 F 60-79 12-20 106-121/51-66 91-99 Result/EKG - Labs CBC & BMP: 06/15/17 05:02 06/15/17 05:02 Labs: Laboratory Results - last 24 hr 06/14/17 06/14/17 06/14/17 08:16 11:51 16:20 WBC RBC Hgb Hct MCV MCH MCHC RDW Plt Count MPV Neut % (Auto) Lymph % (Auto) [place] % (Auto) Eos % (Auto) Baso % (Auto) Neut # (Auto) Lymph # (Auto) [place] # (Auto) Eos # (Auto) Baso # (Auto) Immature Gran % Nucleated RBC % Immature Gran # Nucleated RBCs # Immature Plt Fraction Sodium Potassium Chloride Carbon Dioxide Anion Gap BUN Creatinine GFR Calculation BUN/Creatinine Ratio Glucose POC Glucose 209 H 231 H 84 Calculated Osmolality Calcium Magnesium 06/14/17 06/15/17 06/15/17 20:40 05:02 05:02 WBC 9.3 RBC 3.07 L Hgb 8.8 L Hct 26.6 L MCV 86.6 L MCH 29 MCHC 33.1 RDW 17.7 H Plt Count 326 MPV 10.6 Neut % (Auto) 73.5 Lymph % (Auto) 13.0 L [place] % (Auto) 9.7 Eos % (Auto) 1.8 Baso % (Auto) 0.4 Neut # (Auto) 6.8 Lymph # (Auto) 1.2 L [place] # (Auto) 0.9 H Eos # (Auto) 0.2 Baso # (Auto) 0.0 Immature Gran % 1.6 Nucleated RBC % 0.3 Immature Gran # 0.15 Nucleated RBCs # 0.03 Immature Plt Fraction 0.0 Sodium 135 L Potassium 4.0 Chloride 99 Carbon Dioxide 33 H Anion Gap 7.0 BUN 25 H Creatinine 0.90 GFR Calculation 60 BUN/Creatinine Ratio 27.00 H Glucose 190 H POC Glucose 253 H Calculated Osmolality 278.1 Calcium 8.6 Magnesium 1.6 L Quality Measures - VTE Contraindication to Pharmacological VTE Prophylaxis: High Risk of Bleeding Specialty Discharge - Follow Up or Referrals Follow up with: Gianni Tapia MD [Physician] - Santiago Sanz MD [Primary Care Provider] - Alvin Martin MD [Physician] -
[2017-06-15] MEDS: INSULIN REGULAR 100 UNIT/ML SUBCUT SCH ×4 (09:15→21:43)
[2017-06-15] MEDS: DOCUSATE SODIUM 100 MG CAPSULE PO SCH (09:22)
[2017-06-15] MEDS: ASPIRIN EC 81 MG TABLET PO SCH (09:22)
[2017-06-15] MEDS: metFORMIN 500 MG TABLET PO SCH ×2 (09:22→17:00)
[2017-06-15] MEDS: SPIRONOLACTONE 25 MG TABLET PO SCH ×2 (09:22→21:42)
[2017-06-15] MEDS: ATENOLOL 25 MG TABLET PO SCH ×2 (09:22→21:42)
[2017-06-15] MEDS: FERROUS SULFATE 325 MG TABLET PO SCH (09:22)
[2017-06-15] MEDS: FUROSEMIDE 40 MG TABLET PO SCH ×2 (09:24→16:59)
[2017-06-15] MEDS: CHLORHEXIDINE 0.12% ORAL RINSE 60 ML BOTTLE SWISH/SPIT SCH ×2 (09:24→21:43)
[2017-06-15] MEDS: PANTOPRAZOLE 40 MG TABLET PO SCH (09:24)
[2017-06-15] MEDS: AMIODARONE 200 MG TABLET PO SCH ×2 (09:24→21:42)
--- NOTE | 2017-06-15 13:03 | Cardiology Progress Note ---
Assessment and Plan (1) Coronary artery disease Status: Chronic Assessment and plan: 71-year-old female, status post CABG 4, recovering slowly. Postop A. fib, pleural effusion, status post thoracocentesis. Anemia, diabetes, hypertension, hyperlipidemia. 06/11: Thoracocentesis -Continue aspirin, statin. -cont po amiodarone load, may cut back to 200 mg daily after a week, if no recurrence of atrial fibrillation, we may consider short-term amiodarone use -Continue atenolol. She did not feel well with Coreg -EF was preserved. -Continue p.o. Lasix -Defer anticoagulation at this time,had recent thoracocentesis, still quite anemic Current Visit: Yes (2) Postoperative atrial fibrillation Status: Resolved Current Visit: Yes Cardiology - PN: Subj Interval history: She is feeling slightly better, still coughing. Pain resolved. No A. fib. Exam (Progress Note) - Constitutional Vitals: Period Temp Pulse Resp BP Sys/Morales Pulse Ox Last 24 Hr 98.4 F-99.0 F 60-79 12-20 106-135/51-66 90-99 General appearance: no acute distress, under weight - Head Head exam: Present: normal inspection, normocephalic - Eye Eye exam: Absent: conjunctival injection, scleral icterus, laceration to eyelids Pupils: Absent: dilated - ENT ENT exam: Present: normal external ear exam - Neck Neck exam: Present: normal inspection. Absent: thyromegaly - Respiratory Respiratory exam: Present: clear to auscultation bilaterally. Absent: chest wall tenderness - Cardiovascular Cardiovascular exam: Present: regular rate and rhythm, systolic murmur. Absent : JVD - GI/Abdominal GI/Abdominal exam: Present: normal bowel sounds. Absent: distended - Extremities Exam Extremities exam: Present: normal inspection, normal capillary refill, edema, other (Incisions dry) - Back Exam Back exam: Present: normal inspection - Neurological Exam Neurological exam: Present: alert, oriented X3 - Psychiatric Psychiatric exam: Present: normal affect, normal mood - Skin Skin exam: Present: normal color, warm. Absent: cyanosis Result/EKG - Labs CBC & BMP: 06/15/17 05:02 06/15/17 05:02 Lab Results: I have reviewed the past 24 hour labs Labs: Laboratory Results - last 24 hr 09/06/14/17 06/15/17 16:20 20:40 05:02 WBC 9.3 RBC 3.07 L Hgb 8.8 L Hct 26.6 L MCV 86.6 L MCH 29 MCHC 33.1 RDW 17.7 H Plt Count 326 MPV 10.6 Neut % (Auto) 73.5 Lymph % (Auto) 13.0 L [place] % (Auto) 9.7 Eos % (Auto) 1.8 Baso % (Auto) 0.4 Neut # (Auto) 6.8 Lymph # (Auto) 1.2 L [place] # (Auto) 0.9 H Eos # (Auto) 0.2 Baso # (Auto) 0.0 Immature Gran % 1.6 Nucleated RBC % 0.3 Immature Gran # 0.15 Nucleated RBCs # 0.03 Immature Plt Fraction 0.0 Sodium Potassium Chloride Carbon Dioxide Anion Gap BUN Creatinine GFR Calculation BUN/Creatinine Ratio Glucose POC Glucose 84 253 H Calculated Osmolality Calcium Magnesium 06/15/17 06/15/17 06/15/17 05:02 08:03 11:40 WBC RBC Hgb Hct MCV MCH MCHC RDW Plt Count MPV Neut % (Auto) Lymph % (Auto) [place] % (Auto) Eos % (Auto) Baso % (Auto) Neut # (Auto) Lymph # (Auto) [place] # (Auto) Eos # (Auto) Baso # (Auto) Immature Gran % Nucleated RBC % Immature Gran # Nucleated RBCs # Immature Plt Fraction Sodium 135 L Potassium 4.0 Chloride 99 Carbon Dioxide 33 H Anion Gap 7.0 BUN 25 H Creatinine 0.90 GFR Calculation 60 BUN/Creatinine Ratio 27.00 H Glucose 190 H POC Glucose 205 H 337 H Calculated Osmolality 278.1 Calcium 8.6 Magnesium 1.6 L - EKG EKG results: interpreted by vt Quality Measures - VTE Contraindication to Pharmacological VTE Prophylaxis: High Risk of Bleeding Specialty Discharge - Follow Up or Referrals Follow up with: Gianni Tapia MD [Physician] - Santiago Sanz MD [Primary Care Provider] - Alvin Martin MD [Physician] -
[2017-06-15] MEDS: PRAVASTATIN 20 MG TABLET PO SCH (21:42)
[2017-06-15] MEDS: INSULIN GLARGINE 100 UNIT/ML SUBCUT SCH (21:42)
[2017-06-16] MEDS: ALBUTEROL/IPRATROPIUM 3 ML NEB RESP TX SCH ×6 (02:59→23:43)
[2017-06-16 06:04] LABS: Basophils % 0.4 % (0.0-0.8); Eosinophils # 0.2 10*3/uL (0.0-0.87); Eosinophils % 2.3 % (0.00-10.9); Hematocrit 27.2 VOL% (35.7-47.0); Immature Granulocytes % 1.1 %; Lymphocytes # 1.4 10*3/uL (1.4-4.0); Mean Corpuscular HGB Conc 33.1 GM/DL (32-36); Mean Corpuscular Hemoglobin 29 PG (27-34); Mean Corpuscular Volume 86.3 FL (87-102); Mean Platelet Volume 10.2 FL (9.6-12.0); Monocytes # 0.8 10*3/uL (0.11-0.8); NRBC # 0.03 10*3/uL; Neutrophils # 6.7 10*3/uL (1.4-7.4); Neutrophils % 72.2 % (38.7-73.9); Platelet Count 361 T/CUMM (130-400); Red Blood Count 3.15 MC/CUMM (3.8-5.5); Red Cell Distribution Width 18.4 % (9.3-17.3); White Blood Count 9.3 T/CUMM (4-12)
--- NOTE | 2017-06-16 06:27 | Cardiothoracic Progress Note ---
Cardiothoracic Subjective Interval history: Patient appears to be doing well. Vital signs are stable and she is breathing comfortably. She has been increasing her activities on a daily basis. We will continue to encourage her in doing this and hopefully she will be ready for discharge in a day or 2. Exam (Progress Note) - Constitutional Vitals: Period Temp Pulse Resp BP Sys/Morales Pulse Ox Last 24 Hr 98.4 F-99.1 F 60-76 14-20 111-135/55-67 90-98 Result/EKG - Labs CBC & BMP: 06/16/17 05:17 06/15/17 05:02 Labs: Laboratory Results - last 24 hr 06/15/17 06/15/17 06/15/17 05:02 08:03 11:40 WBC RBC Hgb Hct MCV MCH MCHC RDW Plt Count MPV Neut % (Auto) Lymph % (Auto) [place] % (Auto) Eos % (Auto) Baso % (Auto) Neut # (Auto) Lymph # (Auto) [place] # (Auto) Eos # (Auto) Baso # (Auto) Immature Gran % Nucleated RBC % Immature Gran # Nucleated RBCs # Immature Plt Fraction Sodium 135 L Potassium 4.0 Chloride 99 Carbon Dioxide 33 H Anion Gap 7.0 BUN 25 H Creatinine 0.90 GFR Calculation 60 BUN/Creatinine Ratio 27.00 H Glucose 190 H POC Glucose 205 H 337 H Calculated Osmolality 278.1 Calcium 8.6 Magnesium 1.6 L 06/15/17 06/15/17 06/15/17 17:04 17:51 21:21 WBC RBC Hgb Hct MCV MCH MCHC RDW Plt Count MPV Neut % (Auto) Lymph % (Auto) [place] % (Auto) Eos % (Auto) Baso % (Auto) Neut # (Auto) Lymph # (Auto) [place] # (Auto) Eos # (Auto) Baso # (Auto) Immature Gran % Nucleated RBC % Immature Gran # Nucleated RBCs # Immature Plt Fraction Sodium Potassium Chloride Carbon Dioxide Anion Gap BUN Creatinine GFR Calculation BUN/Creatinine Ratio Glucose POC Glucose 65 L 98 234 H Calculated Osmolality Calcium Magnesium 06/16/17 05:17 WBC 9.3 RBC 3.15 L Hgb 9.0 L Hct 27.2 L MCV 86.3 L MCH 29 MCHC 33.1 RDW 18.4 H Plt Count 361 MPV 10.2 Neut % (Auto) 72.2 Lymph % (Auto) 15.0 L [place] % (Auto) 9.0 Eos % (Auto) 2.3 Baso % (Auto) 0.4 Neut # (Auto) 6.7 Lymph # (Auto) 1.4 [place] # (Auto) 0.8 Eos # (Auto) 0.2 Baso # (Auto) 0.0 Immature Gran % 1.1 Nucleated RBC % 0.3 Immature Gran # 0.10 Nucleated RBCs # 0.03 Immature Plt Fraction 0.0 Sodium Potassium Chloride Carbon Dioxide Anion Gap BUN Creatinine GFR Calculation BUN/Creatinine Ratio Glucose POC Glucose Calculated Osmolality Calcium Magnesium Quality Measures - VTE Contraindication to Pharmacological VTE Prophylaxis: High Risk of Bleeding Specialty Discharge - Follow Up or Referrals Follow up with: Gianni Tapia MD [Physician] - Santiago Sanz MD [Primary Care Provider] - Alvin Martin MD [Physician] -
[2017-06-16 06:38] LABS: Calcium 8.7 MG/DL (8.5-10.1); Magnesium 1.7 MG/DL (1.8-2.4); Osmolality,Calculated 282.7 MOS/KG (273-304); Potassium 3.9 MMOL/L (3.5-5.1)
[2017-06-16] MEDS: LEVOTHYROXINE 88 MCG TABLET PO SCH (07:38)
[2017-06-16] MEDS: ASPIRIN EC 81 MG TABLET PO SCH (09:23)
[2017-06-16] MEDS: SPIRONOLACTONE 25 MG TABLET PO SCH ×2 (09:24→21:32)
[2017-06-16] MEDS: PANTOPRAZOLE 40 MG TABLET PO SCH (09:24)
[2017-06-16] MEDS: metFORMIN 500 MG TABLET PO SCH ×2 (09:24→16:05)
[2017-06-16] MEDS: FUROSEMIDE 40 MG TABLET PO SCH ×2 (09:24→15:54)
[2017-06-16] MEDS: DOCUSATE SODIUM 100 MG CAPSULE PO SCH (09:24)
[2017-06-16] MEDS: AMIODARONE 200 MG TABLET PO SCH ×2 (09:24→21:31)
[2017-06-16] MEDS: ATENOLOL 25 MG TABLET PO SCH ×2 (09:25→21:31)
[2017-06-16] MEDS: FERROUS SULFATE 325 MG TABLET PO SCH (09:25)
[2017-06-16] MEDS: INSULIN REGULAR 100 UNIT/ML SUBCUT SCH ×4 (09:26→21:32)
[2017-06-16] MEDS: CHLORHEXIDINE 0.12% ORAL RINSE 60 ML BOTTLE SWISH/SPIT SCH ×2 (09:26→21:34)
--- NOTE | 2017-06-16 12:54 | Cardiology Progress Note ---
Assessment and Plan (1) S/P CABG x 4 Status: Acute Assessment and plan: SEE PLAN OF CARE LISTED BELOW. Current Visit: Yes (2) Dyslipidemia Status: Chronic Assessment and plan: SEE PLAN OF CARE LISTED BELOW. Current Visit: Yes (3) Bilateral pleural effusion Status: Acute Assessment and plan: SEE PLAN OF CARE LISTED BELOW. Current Visit: Yes (4) Anemia Status: Acute Assessment and plan: SEE PLAN OF CARE LISTED BELOW. Current Visit: Yes (5) Diabetes Status: Chronic Assessment and plan: SEE PLAN OF CARE LISTED BELOW. Current Visit: Yes (6) Hypertension Status: Chronic Assessment and plan: SEE PLAN OF CARE LISTED BELOW. Current Visit: Yes (7) Coronary artery disease Status: Chronic Assessment and plan: SEE PLAN OF CARE LISTED BELOW. Current Visit: Yes (8) Cough Status: Acute Assessment and plan: SEE PLAN OF CARE LISTED BELOW. Current Visit: Yes (9) Postoperative atrial fibrillation Status: Resolved Assessment and plan: SEE PLAN OF CARE LISTED BELOW. Current Visit: Yes Cardiology - PN: Subj Interval history: BULK TANK DRIVER: DR. MARTIN SUMMARY: Ms. Rhodes, 71WF, presented for elective CABG June 03, 2017 to be performed by Dr. Tapia. History of known coronary artery disease, hypertension, dyslipidemia (reported history of statin intolerance) and diabetes. Patient was admitted at the end of April 2017, underwent cardiac catheterization was found to have three-vessel coronary artery disease. June 04, 2017 patient underwent CABG 4 (WALTON - LAD, SVG - RCA, SVG - RI, SVG - OM). LVEF 55% per LV gram during cardiac catheterization June 28, 2017. She is doing well postoperatively. Underwent thoracentesis June 11, 2017. 800 mL of bloody fluid removed. Chest x-ray June 13 continue to reveal bilateral pleural effusions. Dr. Tapia feels these will not require thoracentesis at this time. She has developed postoperative atrial fibrillation. Amiodarone initiated. Now on p.o. regimen. No recurrent atrial fibrillation. Chads vasc score 5. Deferring anticoagulation at this time due to anemia. 2016 Patient is postop day #12 today. She was seen on the telemetry unit. She has been slow to improve. She is without complaints of chest pain, heaviness or tightness this morning. Denies shortness of breath. She has now been transitioned to p.o. amiodarone over the weekend. She is tolerating this well. No recurrent atrial fibrillation. Continue incentive spirometry. Hemodynamically stable. Surgical incisions are healing well without signs of infection. According to patient, planned for discharge to swing bed on Friday if she continues to progress well. Continue current plan of care. Encouraged to increase in activity as tolerated. She is currently on a good medication regimen cardiac menezes. We will continue with current plan of care. No new recommendations. Monitor telemetry for recurrent atrial fibrillation. I will discuss with Dr. Muse, further plan and addendum to follow. IMPRESSION AND PLAN 1. CAD S/P CABG - Status post revascularization. Tolerating Aspirin, beta- letha and lipid-lowering agent. HILARIO inhibitor discontinued due to cough. EF was preserved. Increase activity as tolerated. 2. HYPERTENSION - Continue with beta-letha. Blood pressure well controlled. 3. DYSLIPIDEMIA - LDL 57. History of statin intolerance but tolerating Pravastatin without difficulty. 4. DIABETES - Continue sliding scale insulin. 5. ANEMIA - We will continue to follow daily. No overt signs of bleeding. Daily CBC. 6. BILATERAL PLEURAL EFFUSION - Underwent thoracentesis 06/11/17. 800 mL bloody fluid removed. Chest x-ray reveals small bilateral pleural effusions will not require thoracentesis at this time. Continue p.o. Lasix and spironolactone. 7. COUGH - HILARIO inhibitor discontinued per attending. 8. PAROXYSMAL ATRIAL FIBRILLATION - May have some underlying pericarditis. Now converted back to sinus rhythm. Tolerating p.o. amiodarone well. No recurrent A. fib. Continue beta-letha. Deferring anticoagulation at this time as patient is anemic. 9. HYPOMAGNESEMIA - Replace per protocol. Exam (Progress Note) - Constitutional Vitals: Period Temp Pulse Resp BP Sys/Morales Pulse Ox Last 24 Hr 97.2 F-99.1 F 63-75 14-20 111-132/58-72 90-98 Exam: General: Appears well with no apparent distress. Pleasant and cooperative. Appears comfortable. HEENT: PERRL, normocephalic, atraumatic. Mucous membranes moist. No jaundice noted. Conjunctiva moist and clear, sclerae anicteric Neck: No JVD/HJR, no thyromegaly or lymphadenopathy noted. No carotid bruit appreciated Cardiac: Regular rate and rhythm. Grade 1 systolic murmur. Lungs: Decreased lung sounds to bilateral bases. Intermittent use of oxygen per nasal cannula. Abdomen: Soft, bowel sounds normoactive. Nontender and nondistended. No abdominal bruit or thrill noted. No masses noted. Extremities: No clubbing, cyanosis noted. No edema noted. Upper extremity pulses 2+. Lower extremity pulses 2+. Capillary refill less than 3 seconds. Skin: No unusual lesions or rashes. No skin breakdown appreciated. Neuro: Awake, alert and oriented 3. Moves all extremities well without hemiparesis or paralysis. No essential tremor is appreciated. Surgical incisions healing well without signs of infection. Result/EKG - Labs CBC & BMP: 06/16/17 05:17 06/16/17 05:18 Lab Results: I have reviewed the past 24 hour labs Labs: Laboratory Results - last 24 hr 06/15/17 06/15/17 06/15/17 17:04 17:51 21:21 WBC RBC Hgb Hct MCV MCH MCHC RDW Plt Count MPV Neut % (Auto) Lymph % (Auto) [place] % (Auto) Eos % (Auto) Baso % (Auto) Neut # (Auto) Lymph # (Auto) [place] # (Auto) Eos # (Auto) Baso # (Auto) Immature Gran % Nucleated RBC % Immature Gran # Nucleated RBCs # Immature Plt Fraction Sodium Potassium Chloride Carbon Dioxide Anion Gap BUN Creatinine GFR Calculation BUN/Creatinine Ratio Glucose POC Glucose 65 L 98 234 H Calculated Osmolality Calcium Magnesium 06/16/17 06/16/17 06/16/17 05:17 05:18 07:38 WBC 9.3 RBC 3.15 L Hgb 9.0 L Hct 27.2 L MCV 86.3 L MCH 29 MCHC 33.1 RDW 18.4 H Plt Count 361 MPV 10.2 Neut % (Auto) 72.2 Lymph % (Auto) 15.0 L [place] % (Auto) 9.0 Eos % (Auto) 2.3 Baso % (Auto) 0.4 Neut # (Auto) 6.7 Lymph # (Auto) 1.4 [place] # (Auto) 0.8 Eos # (Auto) 0.2 Baso # (Auto) 0.0 Immature Gran % 1.1 Nucleated RBC % 0.3 Immature Gran # 0.10 Nucleated RBCs # 0.03 Immature Plt Fraction 0.0 Sodium 138 Potassium 3.9 Chloride 98 Carbon Dioxide 33 H Anion Gap 10.9 BUN 23 H Creatinine 0.90 GFR Calculation 61 BUN/Creatinine Ratio 25.00 H Glucose 170 H POC Glucose 194 H Calculated Osmolality 282.7 Calcium 8.7 Magnesium 1.7 L 06/16/17 11:14 WBC RBC Hgb Hct MCV MCH MCHC RDW Plt Count MPV Neut % (Auto) Lymph % (Auto) [place] % (Auto) Eos % (Auto) Baso % (Auto) Neut # (Auto) Lymph # (Auto) [place] # (Auto) Eos # (Auto) Baso # (Auto) Immature Gran % Nucleated RBC % Immature Gran # Nucleated RBCs # Immature Plt Fraction Sodium Potassium Chloride Carbon Dioxide Anion Gap BUN Creatinine GFR Calculation BUN/Creatinine Ratio Glucose POC Glucose 343 H Calculated Osmolality Calcium Magnesium Quality Measures - VTE Contraindication to Pharmacological VTE Prophylaxis: High Risk of Bleeding Specialty Discharge - Follow Up or Referrals Follow up with: Ginani Tapia MD [Physician] - Santiago Sanz MD [Primary Care Provider] - Alvin Martin MD [Physician] -
[2017-06-16] MEDS: PRAVASTATIN 20 MG TABLET PO SCH (21:31)
[2017-06-16] MEDS: INSULIN GLARGINE 100 UNIT/ML SUBCUT SCH (21:33)
[2017-06-17] MEDS: ALBUTEROL/IPRATROPIUM 3 ML NEB RESP TX SCH ×6 (03:52→23:33)
[2017-06-17 05:23] LABS: Basophils % 0.3 % (0.0-0.8); Eosinophils # 0.1 10*3/uL (0.0-0.87); Eosinophils % 1.5 % (0.00-10.9); Hematocrit 27.2 VOL% (35.7-47.0); Hemoglobin 8.9 GM/DL (12.0-16.0); Immature Granulocytes % 0.7 %; Immature Granulocytes Absolute 0.07 #; Lymphocytes # 1.4 10*3/uL (1.4-4.0); Mean Corpuscular HGB Conc 32.7 GM/DL (32-36); Mean Corpuscular Hemoglobin 28 PG (27-34); Mean Corpuscular Volume 86.6 FL (87-102); Monocytes # 0.8 10*3/uL (0.11-0.8); Monocytes % 8.4 % (1.7-12.7); NRBC # 0.02 10*3/uL; Neutrophils # 7.1 10*3/uL (1.4-7.4); Neutrophils % 74.1 % (38.7-73.9); Platelet Count 373 T/CUMM (130-400); Red Blood Count 3.14 MC/CUMM (3.8-5.5); Red Cell Distribution Width 18.1 % (9.3-17.3); White Blood Count 9.5 T/CUMM (4-12)
[2017-06-17 06:04] LABS: Calcium 8.5 MG/DL (8.5-10.1); Magnesium 1.5 MG/DL (1.8-2.4); Osmolality,Calculated 278.8 MOS/KG (273-304)
[2017-06-17] MEDS: LEVOTHYROXINE 88 MCG TABLET PO SCH (06:04)
[2017-06-17] MEDS: INSULIN REGULAR 100 UNIT/ML SUBCUT SCH ×4 (09:05→22:41)
[2017-06-17] MEDS: SPIRONOLACTONE 25 MG TABLET PO SCH ×2 (09:05→22:14)
[2017-06-17] MEDS: ASPIRIN EC 81 MG TABLET PO SCH (09:05)
[2017-06-17] MEDS: ATENOLOL 25 MG TABLET PO SCH ×2 (09:05→22:13)
[2017-06-17] MEDS: metFORMIN 500 MG TABLET PO SCH ×2 (09:05→16:27)
[2017-06-17] MEDS: PANTOPRAZOLE 40 MG TABLET PO SCH (09:06)
[2017-06-17] MEDS: CHLORHEXIDINE 0.12% ORAL RINSE 60 ML BOTTLE SWISH/SPIT SCH ×2 (09:06→22:18)
[2017-06-17] MEDS: FUROSEMIDE 40 MG TABLET PO SCH ×2 (09:06→16:27)
[2017-06-17] MEDS: DOCUSATE SODIUM 100 MG CAPSULE PO SCH ×2 (09:06→22:13)
[2017-06-17] MEDS: FERROUS SULFATE 325 MG TABLET PO SCH (09:06)
[2017-06-17] MEDS: AMIODARONE 200 MG TABLET PO SCH (09:06)
--- NOTE | 2017-06-17 09:27 | Cardiothoracic Progress Note ---
Cardiothoracic Subjective Interval history: Patient is getting stronger. She has been breathing without oxygen and breathing comfortably for the last 12 hours. Vital signs have been stable and she is increasing her activity. Our plan is for discharge in the morning. Exam (Progress Note) - Constitutional Vitals: Period Temp Pulse Resp BP Sys/Morales Pulse Ox Last 24 Hr 97.1 F-98.9 F 63-89 16-20 104-137/54-71 90-100 Result/EKG - Labs CBC & BMP: 06/17/17 04:52 06/17/17 04:52 Labs: Laboratory Results - last 24 hr 06/16/17 06/16/17 06/16/17 11:14 15:27 20:18 WBC RBC Hgb Hct MCV MCH MCHC RDW Plt Count MPV Neut % (Auto) Lymph % (Auto) [place] % (Auto) Eos % (Auto) Baso % (Auto) Neut # (Auto) Lymph # (Auto) [place] # (Auto) Eos # (Auto) Baso # (Auto) Immature Gran % Nucleated RBC % Immature Gran # Nucleated RBCs # Immature Plt Fraction Sodium Potassium Chloride Carbon Dioxide Anion Gap BUN Creatinine GFR Calculation BUN/Creatinine Ratio Glucose POC Glucose 343 H 89 246 H Calculated Osmolality Calcium Magnesium 06/17/17 06/17/17 06/17/17 04:52 04:52 07:37 WBC 9.5 RBC 3.14 L Hgb 8.9 L Hct 27.2 L MCV 86.6 L MCH 28 MCHC 32.7 RDW 18.1 H Plt Count 373 MPV 10.0 Neut % (Auto) 74.1 H Lymph % (Auto) 15.0 L [place] % (Auto) 8.4 Eos % (Auto) 1.5 Baso % (Auto) 0.3 Neut # (Auto) 7.1 Lymph # (Auto) 1.4 [place] # (Auto) 0.8 Eos # (Auto) 0.1 Baso # (Auto) 0.0 Immature Gran % 0.7 Nucleated RBC % 0.2 Immature Gran # 0.07 Nucleated RBCs # 0.02 Immature Plt Fraction 0.0 Sodium 137 Potassium 4.0 Chloride 98 Carbon Dioxide 31 Anion Gap 12.0 BUN 21 H Creatinine 0.90 GFR Calculation 60 BUN/Creatinine Ratio 23.00 H Glucose 145 H POC Glucose 195 H Calculated Osmolality 278.8 Calcium 8.5 Magnesium 1.5 L Quality Measures - VTE Contraindication to Pharmacological VTE Prophylaxis: High Risk of Bleeding Specialty Discharge - Follow Up or Referrals Follow up with: Gianni Tapia MD [Physician] - Santiago Sanz MD [Primary Care Provider] - Alvin Martin MD [Physician] -
[2017-06-17] MEDS: MAGNESIUM CHLORIDE 64 MG TABLET PO SCH (10:01)
--- NOTE | 2017-06-17 12:12 | Cardiology Progress Note ---
Assessment and Plan (1) S/P CABG x 4 Status: Acute Assessment and plan: SEE PLAN OF CARE LISTED BELOW. Current Visit: Yes (2) Dyslipidemia Status: Chronic Assessment and plan: SEE PLAN OF CARE LISTED BELOW. Current Visit: Yes (3) Bilateral pleural effusion Status: Acute Assessment and plan: SEE PLAN OF CARE LISTED BELOW. Current Visit: Yes (4) Anemia Status: Acute Assessment and plan: SEE PLAN OF CARE LISTED BELOW. Current Visit: Yes (5) Diabetes Status: Chronic Assessment and plan: SEE PLAN OF CARE LISTED BELOW. Current Visit: Yes (6) Hypertension Status: Chronic Assessment and plan: SEE PLAN OF CARE LISTED BELOW. Current Visit: Yes (7) Coronary artery disease Status: Chronic Assessment and plan: SEE PLAN OF CARE LISTED BELOW. Current Visit: Yes (8) Cough Status: Acute Assessment and plan: SEE PLAN OF CARE LISTED BELOW. Current Visit: Yes (9) Postoperative atrial fibrillation Status: Resolved Assessment and plan: SEE PLAN OF CARE LISTED BELOW. Current Visit: Yes (10) Hypomagnesemia Status: Acute Assessment and plan: SEE PLAN OF CARE LISTED BELOW. Current Visit: Yes Cardiology - PN: Subj Interval history: SENIOR VICE PRESIDENT AND CHIEF INFORMATION OFFICER: DR. MARTIN SUMMARY: Ms. Rhodes, 71WF, presented for elective CABG June 03, 2017 to be performed by Dr. Tapia. History of known coronary artery disease, hypertension, dyslipidemia (reported history of statin intolerance) and diabetes. Patient was admitted at the end of April 2017, underwent cardiac catheterization was found to have three-vessel coronary artery disease. June 04, 2017 patient underwent CABG 4 (W[place]TON - LAD, SVG - RCA, SVG - RI, SVG - OM). LVEF 55% per LV gram during cardiac catheterization June 28, 2017. She is doing well postoperatively. Underwent thoracentesis June 11, 2017. 800 mL of bloody fluid removed. Chest x-ray June 13 continue to reveal bilateral pleural effusions. Dr. Tapia feels these will not require thoracentesis at this time. She has developed postoperative atrial fibrillation. Amiodarone initiated. Now on p.o. regimen. No recurrent atrial fibrillation. Chads vasc score 5. Deferring anticoagulation at this time due to anemia. 2016 Patient is postop day #13 today. She was seen on the telemetry unit. She has been slow to improve. She is doing well today without complaints. Denies chest pain, heaviness or tightness. Denies shortness of breath. Tolerating activity well. Surgical incisions healing well without signs of infection. No recurrent atrial fibrillation on traverse rod assembler. I have decreased amiodarone to daily dosing today. Magnesium continues to be low. Slow-Mag added today. Consider adding low-dose Eliquis 2.5 mg twice daily to reduce cardioembolic risk. Chads score 5. Patient's anemia is holding today 8.9 27.2. I will discuss with her joints and await his additional recommendations. Patient reports that she will most likely be discharged home tomorrow if she continues to do well. Labs stable. Hemodynamically stable. Continue aspirin, beta blockade and lipid-lowering agent. Unable to tolerate HILARIO inhibitor due to cough. EF was preserved. Further plan and recommendations to follow per Dr. Muse. IMPRESSION AND PLAN 1. CAD S/P CABG - Status post revascularization. Tolerating Aspirin, beta- letha and lipid-lowering agent. HILARIO inhibitor discontinued due to cough. EF was preserved. Increase activity as tolerated. 2. HYPERTENSION - Continue with beta-letha. Blood pressure well controlled. 3. DYSLIPIDEMIA - LDL 57. History of statin intolerance but tolerating Pravastatin without difficulty. 4. DIABETES - Continue sliding scale insulin. 5. ANEMIA - Holding. We will continue to follow daily. No overt signs of bleeding. Daily CBC. 6. BILATERAL PLEURAL EFFUSION - Underwent thoracentesis 06/11/17. 800 mL bloody fluid removed. Chest x-ray reveals small bilateral pleural effusions will not require thoracentesis at this time. Continue p.o. Lasix and spironolactone. 7. COUGH - HILARIO inhibitor discontinued per attending. 8. PAROXYSMAL ATRIAL FIBRILLATION - Tolerating p.o. amiodarone well. No recurrent A. fib. Continue beta-letha. I have decreased amiodarone to daily dosing. Consider adding low-dose Eliquis 2.5 mg twice daily to reduce cardioembolic risk chads vasc score 5. Patient's anemia is holding. Today 8.9 and 27.2. I will discuss with Dr. Muse and await his additional recommendations. 9. HYPOMAGNESEMIA - Slow-Mag added to medications. Exam (Progress Note) - Constitutional Vitals: Period Temp Pulse Resp BP Sys/Morales Pulse Ox Last 24 Hr 97.1 F-98.9 F 63-89 16-20 104-137/54-71 90-100 Exam: General: Appears well with no apparent distress. Pleasant and cooperative. Appears comfortable. HEENT: PERRL, normocephalic, atraumatic. Mucous membranes moist. No jaundice noted. Conjunctiva moist and clear, sclerae anicteric Neck: No JVD/HJR, no thyromegaly or lymphadenopathy noted. No carotid bruit appreciated Cardiac: Regular rate and rhythm. Grade 1 systolic murmur. Lungs: Decreased lung sounds to bilateral bases. Intermittent use of oxygen per nasal cannula. Abdomen: Soft, bowel sounds normoactive. Nontender and nondistended. No abdominal bruit or thrill noted. No masses noted. Extremities: No clubbing, cyanosis noted. No edema noted. Upper extremity pulses 2+. Lower extremity pulses 2+. Capillary refill less than 3 seconds. Skin: No unusual lesions or rashes. No skin breakdown appreciated. Neuro: Awake, alert and oriented 3. Moves all extremities well without hemiparesis or paralysis. No essential tremor is appreciated. Surgical incisions healing well without signs of infection. Result/EKG - Labs CBC & BMP: 06/17/17 04:52 06/17/17 04:52 Lab Results: I have reviewed the past 24 hour labs Labs: Laboratory Results - last 24 hr 06/16/17 06/16/17 06/17/17 15:27 20:18 04:52 WBC 9.5 RBC 3.14 L Hgb 8.9 L Hct 27.2 L MCV 86.6 L MCH 28 MCHC 32.7 RDW 18.1 H Plt Count 373 MPV 10.0 Neut % (Auto) 74.1 H Lymph % (Auto) 15.0 L [place] % (Auto) 8.4 Eos % (Auto) 1.5 Baso % (Auto) 0.3 Neut # (Auto) 7.1 Lymph # (Auto) 1.4 [place] # (Auto) 0.8 Eos # (Auto) 0.1 Baso # (Auto) 0.0 Immature Gran % 0.7 Nucleated RBC % 0.2 Immature Gran # 0.07 Nucleated RBCs # 0.02 Immature Plt Fraction 0.0 Sodium Potassium Chloride Carbon Dioxide Anion Gap BUN Creatinine GFR Calculation BUN/Creatinine Ratio Glucose POC Glucose 89 246 H Calculated Osmolality Calcium Magnesium 06/17/17 06/17/17 06/17/17 04:52 07:37 11:23 WBC RBC Hgb Hct MCV MCH MCHC RDW Plt Count MPV Neut % (Auto) Lymph % (Auto) [place] % (Auto) Eos % (Auto) Baso % (Auto) Neut # (Auto) Lymph # (Auto) [place] # (Auto) Eos # (Auto) Baso # (Auto) Immature Gran % Nucleated RBC % Immature Gran # Nucleated RBCs # Immature Plt Fraction Sodium 137 Potassium 4.0 Chloride 98 Carbon Dioxide 31 Anion Gap 12.0 BUN 21 H Creatinine 0.90 GFR Calculation 60 BUN/Creatinine Ratio 23.00 H Glucose 145 H POC Glucose 195 H 274 H Calculated Osmolality 278.8 Calcium 8.5 Magnesium 1.5 L Quality Measures - VTE Contraindication to Pharmacological VTE Prophylaxis: High Risk of Bleeding Specialty Discharge - Follow Up or Referrals Follow up with: Gianni Tapia MD [Physician] - Santiago Sanz MD [Primary Care Provider] - Alvin Martin MD [Physician] -
[2017-06-17] MEDS ORDERED: MAGNESIUM HYDROXIDE SUSP 30 ML UDCUP PO ONE (17:49)
[2017-06-17] MEDS: PRAVASTATIN 20 MG TABLET PO SCH (22:13)
[2017-06-17] MEDS: APIXABAN 2.5 MG TABLET PO SCH (22:14)
[2017-06-17] MEDS: INSULIN GLARGINE 100 UNIT/ML SUBCUT SCH (22:16)
[2017-06-18] MEDS: ALBUTEROL/IPRATROPIUM 3 ML NEB RESP TX SCH ×2 (02:47→07:28)
[2017-06-18 05:01] LABS: Basophils # 0.1 10*3/uL (0.0-0.2); Basophils % 0.5 % (0.0-0.8); Eosinophils # 0.2 10*3/uL (0.0-0.87); Eosinophils % 1.6 % (0.00-10.9); Hematocrit 30.8 VOL% (35.7-47.0); Immature Granulocytes % 1.1 %; Lymphocytes # 1.9 10*3/uL (1.4-4.0); Lymphocytes % 20.2 % (21.3-54.2); Mean Corpuscular HGB Conc 32.5 GM/DL (32-36); Mean Corpuscular Hemoglobin 29 PG (27-34); Mean Corpuscular Volume 87.7 FL (87-102); Mean Platelet Volume 9.9 FL (9.6-12.0); Monocytes # 0.8 10*3/uL (0.11-0.8); Monocytes % 8.9 % (1.7-12.7); NRBC # 0.02 10*3/uL; Neutrophils # 6.4 10*3/uL (1.4-7.4); Neutrophils % 67.7 % (38.7-73.9); Platelet Count 455 T/CUMM (130-400); Red Blood Count 3.51 MC/CUMM (3.8-5.5); Red Cell Distribution Width 18.4 % (9.3-17.3); White Blood Count 9.4 T/CUMM (4-12)
[2017-06-18 05:27] LABS: Calcium 9.1 MG/DL (8.5-10.1); Magnesium 1.9 MG/DL (1.8-2.4); Osmolality,Calculated 281.7 MOS/KG (273-304)
[2017-06-18] MEDS: LEVOTHYROXINE 88 MCG TABLET PO SCH (06:11)
--- NOTE | 2017-06-18 06:21 | Discharge Summary ---
Hospital Course - Hospital Course Hospital Course: History of present illness: Patient is a 71-year-old lady who underwent outpatient cardiac catheterization by Dr. Martin and was found to have critical three-vessel coronary disease. Patient was referred for bypass surgery and was admitted for that purpose. Past medical history review of systems social history and family history are documented in her admission note. Hospital course: Patient was taken to surgery and four-vessel bypass grafting was performed but the patient experienced profound hypotension after being weaned from cardiopulmonary bypass. Bypass was reinstituted and an intra- aortic balloon pump was passed via the right femoral artery and with that in place the patient was weaned from cardiopulmonary bypass without difficulty. Postoperatively the patient stabilized fairly rapidly and did have an initial troponin level of 31 but this trended down rapidly. There was no significant EKG changes suggestive of transmural myocardial infarction. Patient's postoperative course was slow but 1 of progressive improvement. She did have an episode of atrial fibrillation which was controlled with amiodarone. She was discharged home on amiodarone and Eliquis and in normal sinus rhythm. Her other discharge medications are listed below. She is been asked to return for follow-up in 1 month. Specialty Discharge - Follow Up or Referrals Follow up with: Santiago Sanz MD [Primary Care Provider] - Alvin Martin MD [Physician] - Gianni Tapia MD [Physician] - 1 Month Discharge Plan - Discharge Data Disposition: Disch To Home/Self Care Condition at Discharge: Stable Discharge Diet: advance to your usual diet Activity: resume usual activities as tolerated Hygiene: no restrictions Weight Bearing at Discharge: full weight bearing Driving: not until seen by doctor - Discharge Medications New Amiodarone Tab [Cordarone Tab] 200 mg PO DAILY #30 tablet Apixaban [Eliquis] 2.5 mg PO BID #60 tablet Continue Vitamin E 400 unit PO DAILY Spironolactone 12.5 mg PO DAILY Magnesium Chloride [Slow Mag] 64 mg PO BID Levothyroxine Tab [Synthroid Tab] 88 mcg PO DAILY Insulin Glargine [Lantus] 14 unit SUBCUT BEDTIME Atenolol 25 mg PO BID Aspirin EC Tab 81 mg PO DAILY metFORMIN [Glucophage] 1,000 mg PO BID W/MEALS amLODIPine [Norvasc] 2.5 mg PO BID Garlic 2,000 mg PO BID Isosorbide Mononitrate 10 mg PO BID Nitroglycerin Sl Tab [Nitrostat] 0.4 mg SL Q5M PRN #25 tablet PRN Reason: Chest Pain - Follow Up or Referral Follow Up: Gianni Tapia MD [Physician] - Santiago Sanz MD [Primary Care Provider] - Alvin Martin MD [Physician] - - Forms/Instructions Instructions: Coronary Artery Bypass Graft (DC), Heart Healthy Diet (GEN), Sternal Precautions (GEN) Exam - Constitutional Vitals: Period Temp Pulse Resp BP Sys/Morales Pulse Ox Last 24 Hr 97.7 F-98.8 F 62-86 16-20 118-137/57-69 91-100 Discharge Results Procedures and tests throughout hospitalization: Pending Orders 06/03/17 10:12 Fresh Frozen Plasma Routine Red Blood Cells Leuko Red Routine Single Donor Platelets Routine Type and Screen Routine 06/19/17 04:00 BMP w/ Mg [Basic Metabolic Panel w/Mg] IN AM CBC [Comp Blood Count Auto Diff] IN AM 06/20/17 04:00 BMP w/ Mg [Basic Metabolic Panel w/Mg] IN AM CBC [Comp Blood Count Auto Diff] IN AM Labs on day of discharge: Labs from last 24 hours 06/18/17 06/18/17 06/17/17 04:36 04:36 22:13 WBC 9.4 RBC 3.51 L Hgb 10.0 L Hct 30.8 L MCV 87.7 MCH 29 MCHC 32.5 RDW 18.4 H Plt Count 455 H D MPV 9.9 Neut % (Auto) 67.7 Lymph % (Auto) 20.2 L [place] % (Auto) 8.9 Eos % (Auto) 1.6 Baso % (Auto) 0.5 Neut # (Auto) 6.4 Lymph # (Auto) 1.9 [place] # (Auto) 0.8 Eos # (Auto) 0.2 Baso # (Auto) 0.1 Immature Gran % 1.1 Nucleated RBC % 0.2 Immature Gran # 0.10 Nucleated RBCs # 0.02 Immature Plt Fraction 0.0 Sodium 138 Potassium 4.0 Chloride 97 L Carbon Dioxide 32 Anion Gap 13.0 BUN 24 H Creatinine 1.10 H GFR Calculation 47 BUN/Creatinine Ratio 21.00 H Glucose 158 H POC Glucose 233 H Calculated Osmolality 281.7 Calcium 9.1 Magnesium 1.9 06/17/17 06/17/17 06/17/17 20:27 17:14 15:48 WBC RBC Hgb Hct MCV MCH MCHC RDW Plt Count MPV Neut % (Auto) Lymph % (Auto) [place] % (Auto) Eos % (Auto) Baso % (Auto) Neut # (Auto) Lymph # (Auto) [place] # (Auto) Eos # (Auto) Baso # (Auto) Immature Gran % Nucleated RBC % Immature Gran # Nucleated RBCs # Immature Plt Fraction Sodium Potassium Chloride Carbon Dioxide Anion Gap BUN Creatinine GFR Calculation BUN/Creatinine Ratio Glucose POC Glucose 243 H 141 H 73 L Calculated Osmolality Calcium Magnesium 06/17/17 06/17/17 11:23 07:37 WBC RBC Hgb Hct MCV MCH MCHC RDW Plt Count MPV Neut % (Auto) Lymph % (Auto) [place] % (Auto) Eos % (Auto) Baso % (Auto) Neut # (Auto) Lymph # (Auto) [place] # (Auto) Eos # (Auto) Baso # (Auto) Immature Gran % Nucleated RBC % Immature Gran # Nucleated RBCs # Immature Plt Fraction Sodium Potassium Chloride Carbon Dioxide Anion Gap BUN Creatinine GFR Calculation BUN/Creatinine Ratio Glucose POC Glucose 274 H 195 H Calculated Osmolality Calcium Magnesium DS: Provider Date of admission: 06/03/17 09:49 Primary care physician: Santiago Sanz MD Attending physician on admission: Gianni Tapia MD Consults: 06/03/17 09:12 Consult to Anesthesiology [CONS] Routine Consulting Provider: Reason for Anesthesiology: Pre-op Clearance Consult to Cardiac Rehabilitation [CONS] Routine Reason for Cardiac Rehabilitation: Other Consult Comment: Cardiac rehab to evaluate and recommend Consult to Dietitian [CONS] Routine Reason for Dietitian: Other Consult Comment: low salt, low cholesterol, diet Consult to Pastoral Services [CONS] Routine Comment: Emotional support Consult to Physical Therapy [CONS] Routine Reason for Physical Therapy: Evaluate and Treat 06/06/17 14:19 Consult to Cardiac Rehabilitation [CONS] Routine Reason for Cardiac Rehabilitation: Other Consult Comment: Post CABG/heart surgery Consult to Diabetes Center, Educator [CONS] Routine Reason for Evening Sitter: Diabetes Education Initial Insulin Education Consult Comment: insulin education Consult to Dietitian [CONS] Routine Reason for Dietitian: Dietary Consult Consult Comment: Cardiac, low salt, low cholesterol diet Consult to Physical Therapy [CONS] Routine Reason for Physical Therapy: Other Consult Comment: CV Rehab Discharging clinician: Gianni Tapia MD Expected date of discharge: 06/18/17
--- NOTE | 2017-06-18 07:21 | EKG Report ---
Stationary ECG Study [facility] Test Date: 06/18/2017 7:22:23 AM Pat Name: KWABENA BOSS Department: Room: 274 Gender: F [place] Hardware Installer: J[place] : [id number] Requested by: Booker Calixto Order Number: [id number] Reading MD: FINA HERNANDEZ Intervals [place] Rate: 70 P: 38 ND: 224 QRS: 10 QRSD: 86 T: 158 QT: 396 QTc: 417 Interpretive Statements SINUS RHYTHM WITH FIRST-DEGREE A-V B AT 70 BPM NST, CONSIDER ISCHEMIA Electronically Signed On 06-21-17 12:10:11 CDT by FINA HERNANDEZ [email or web address]
[2017-06-18 08:25] VITALS: BP 124/72
[2017-06-18] MEDS: ATENOLOL 25 MG TABLET PO SCH (08:49)
[2017-06-18] MEDS: DOCUSATE SODIUM 100 MG CAPSULE PO SCH ×2 (08:49→08:53)
[2017-06-18] MEDS: APIXABAN 2.5 MG TABLET PO SCH (08:50)
[2017-06-18] MEDS: metFORMIN 500 MG TABLET PO SCH (08:50)
[2017-06-18] MEDS: FERROUS SULFATE 325 MG TABLET PO SCH (08:50)
[2017-06-18] MEDS: MAGNESIUM CHLORIDE 64 MG TABLET PO SCH (08:50)
[2017-06-18] MEDS: PANTOPRAZOLE 40 MG TABLET PO SCH (08:50)
[2017-06-18] MEDS: INSULIN REGULAR 100 UNIT/ML SUBCUT SCH (08:50)
[2017-06-18] MEDS: FUROSEMIDE 40 MG TABLET PO SCH (08:50)
[2017-06-18] MEDS: SPIRONOLACTONE 25 MG TABLET PO SCH (08:50)
[2017-06-18] MEDS: ASPIRIN EC 81 MG TABLET PO SCH (08:50)
[2017-06-18] MEDS: CHLORHEXIDINE 0.12% ORAL RINSE 60 ML BOTTLE SWISH/SPIT SCH (08:53)
[2017-06-18] MEDS ORDERED: AMIODARONE 200 MG TABLET PO SCH (09:00)
== END 2017-06-18 09:55 | disposition home or self-care (01) | DRG 235 ==
LOC: N.TELES 09:49 → N.CVR 06-04 07:36 → N.ICU 06-05 13:43 → N.TELES 06-06 14:04

== ENCOUNTER 2017-07-29 19:25 | Inpatient (IN) ==
[2017-07-29 21:49] LABS: Basophils % 0.2 % (0.0-0.8); Eosinophils % 0.2 % (0.00-10.9); Hematocrit 33.1 VOL% (35.7-47.0); Hemoglobin 10.9 GM/DL (12.0-16.0); Immature Granulocytes % 0.7 %; Immature Granulocytes Absolute 0.12 #; Lymphocytes # 1.8 10*3/uL (1.4-4.0); Lymphocytes % 10.8 % (21.3-54.2); Mean Corpuscular HGB Conc 32.9 GM/DL (32-36); Mean Corpuscular Hemoglobin 27 PG (27-34); Mean Corpuscular Volume 82.8 FL (87-102); Mean Platelet Volume 10.2 FL (9.6-12.0); Monocytes # 1.8 10*3/uL (0.11-0.8); Monocytes % 10.7 % (1.7-12.7); Neutrophils # 12.6 10*3/uL (1.4-7.4); Neutrophils % 77.4 % (38.7-73.9); Platelet Count 187 T/CUMM (130-400); Red Cell Distribution Width 16.3 % (9.3-17.3); White Blood Count 16.3 T/CUMM (4-12)
[2017-07-29 22:00] LABS: Osmolality,Calculated 270.4 MOS/KG (273-304); Potassium 3.9 MMOL/L (3.5-5.1)
[2017-07-29] MEDS ORDERED: ACETAMINOPHEN 325 MG TABLET PO ONE (22:44)
[2017-07-29] MEDS ORDERED: SODIUM CHLORIDE 0.9% 1,000 ML IV STA (22:44)
[2017-07-29] MEDS ORDERED: CLINDAMYCIN INJ 900 MG in PREMIX 1 EACH IV STA (22:44)
[2017-07-29] MEDS ORDERED: VANCOMYCIN INJ 1,000 MG in SODIUM CHLORIDE 0.9% 250 ML IV STA (23:13)
[2017-07-29] MEDS ORDERED: VANCOMYCIN 1,000 MG VIAL ONE (23:14)
[2017-07-29 23:21] LABS: Apearance,Urine Slightly Hazy (Clear); Bacteria,Urine Occasional /HPF (Few); Bilirubin,Urine Negative (Negative); Blood, Urine Negative (Negative); Glucose,Urine (UA) Negative (Negative); Hyaline Casts,Urine 6 /LPF (0-3); Ketones,Urine Negative (Negative); Mucus,Urine Occasional /LPF (Occasional); Nitrite,Urine Negative (Negative); Protein,Urine 30 MG/DL; RBC,Urine 3 /HPF (0-4); Squamous Epithelial Cell,Urine Occasional /HPF (0-10); Urine Color Yellow (Yellow); Urine Specific Gravity 1.019 (1.001-1.035); Urine Urobilinogen < 2.0 EU/DL (0.2-1.0); WBC,Urine 5 /HPF (0-6)
[2017-07-30] MEDS ORDERED: MORPHINE 2 MG/1 ML SYRINGE IV PRN (00:24)
[2017-07-30] MEDS ORDERED: DEXTROSE 50% 25 GM/50 ML VIAL IV PRN (00:24)
[2017-07-30] MEDS ORDERED: ONDANSETRON 4 MG/2 ML VIAL IV PRN (00:24)
[2017-07-30] MEDS ORDERED: GLUCAGON 1 MG VIAL IM PRN (00:24)
[2017-07-30] MEDS ORDERED: NITROGLYCERIN SL 0.4 MG TABLET SL PRN (09:16)
[2017-07-30] MEDS ORDERED: GARLIC 2000 MG PO SCH (09:30)
[2017-07-30] MEDS: PANTOPRAZOLE 40 MG TABLET PO SCH (10:40)
[2017-07-30] MEDS: LEVOTHYROXINE 88 MCG TABLET PO SCH (10:40)
[2017-07-30] MEDS: VITAMIN E 400 UNIT CAPSULE PO SCH (10:40)
[2017-07-30] MEDS: ASPIRIN EC 81 MG TABLET PO SCH (10:41)
[2017-07-30] MEDS: amLODIPine 2.5 MG TABLET PO SCH (10:42)
[2017-07-30] MEDS: SPIRONOLACTONE 25 MG TABLET PO SCH (10:43)
[2017-07-30] MEDS: CEFEPIME 1,000 MG in SODIUM CHLORIDE 0.9% 50 ML IV SCH (10:49)
[2017-07-30] MEDS: metFORMIN 500 MG TABLET PO SCH (17:11)
[2017-07-30] MEDS: ATENOLOL 25 MG TABLET PO SCH (18:29)
[2017-07-30] MEDS: ACETAMINOPHEN 325 MG TABLET PO PRN (20:31)
[2017-07-30] MEDS: INSULIN GLARGINE 100 UNIT/ML SUBCUT SCH (20:31)
[2017-07-30] MEDS: MAGNESIUM CHLORIDE 64 MG TABLET PO SCH (20:31)
[2017-07-30] MEDS: PRAVASTATIN 20 MG TABLET PO SCH (20:32)
[2017-07-30] MEDS ORDERED: VANCOMYCIN INJ 1,000 MG in SODIUM CHLORIDE 0.9% 250 ML IV SCH (21:00)
[2017-07-31 06:31] LABS: Basophils % 0.2 % (0.0-0.8); Eosinophils # 0.2 10*3/uL (0.0-0.87); Eosinophils % 2.1 % (0.00-10.9); Hematocrit 27.4 VOL% (35.7-47.0); Immature Granulocytes % 0.4 %; Immature Granulocytes Absolute 0.03 #; Lymphocytes % 11.8 % (21.3-54.2); Mean Corpuscular HGB Conc 31.8 GM/DL (32-36); Mean Corpuscular Hemoglobin 26 PG (27-34); Mean Corpuscular Volume 83.3 FL (87-102); Mean Platelet Volume 10.6 FL (9.6-12.0); Monocytes # 0.9 10*3/uL (0.11-0.8); Monocytes % 10.8 % (1.7-12.7); Neutrophils # 6.1 10*3/uL (1.4-7.4); Neutrophils % 74.7 % (38.7-73.9); Platelet Count 166 T/CUMM (130-400); Red Blood Count 3.29 MC/CUMM (3.8-5.5); Red Cell Distribution Width 16.4 % (9.3-17.3)
[2017-07-31 06:50] LABS: Hemoglobin 8.7 GM/DL (12.0-16.0); White Blood Count 8.1 T/CUMM (4-12)
[2017-07-31 07:03] LABS: Calcium 8.4 MG/DL (8.5-10.1); Osmolality,Calculated 280.5 MOS/KG (273-304); Potassium 4.5 MMOL/L (3.5-5.1)
[2017-07-31] MEDS: LEVOTHYROXINE 88 MCG TABLET PO SCH (07:20)
[2017-07-31] MEDS: metFORMIN 500 MG TABLET PO SCH ×2 (09:02→17:14)
[2017-07-31] MEDS: amLODIPine 2.5 MG TABLET PO SCH (09:02)
[2017-07-31] MEDS: SPIRONOLACTONE 25 MG TABLET PO SCH (09:02)
[2017-07-31] MEDS: PANTOPRAZOLE 40 MG TABLET PO SCH (09:03)
[2017-07-31] MEDS: ATENOLOL 25 MG TABLET PO SCH ×2 (09:03→18:29)
[2017-07-31] MEDS: VITAMIN E 400 UNIT CAPSULE PO SCH (09:03)
[2017-07-31] MEDS: MAGNESIUM CHLORIDE 64 MG TABLET PO SCH ×2 (09:03→21:40)
[2017-07-31] MEDS: CEFEPIME 1,000 MG in SODIUM CHLORIDE 0.9% 50 ML IV SCH (09:05)
[2017-07-31] MEDS: ASPIRIN EC 81 MG TABLET PO SCH (12:39)
[2017-07-31] MEDS: ACETAMINOPHEN 325 MG TABLET PO PRN (16:17)
[2017-07-31] MEDS: VANCOMYCIN INJ 1,000 MG in SODIUM CHLORIDE 0.9% 250 ML IV SCH (17:13)
[2017-07-31] MEDS: INSULIN GLARGINE 100 UNIT/ML SUBCUT SCH (21:40)
[2017-07-31] MEDS: PRAVASTATIN 20 MG TABLET PO SCH (21:40)
[2017-07-31] MEDS: ASPIRIN EC 325 MG TABLET PO SCH (21:40)
[2017-08-01] MEDS: VANCOMYCIN INJ 1,000 MG in SODIUM CHLORIDE 0.9% 250 ML IV SCH ×2 (04:50→17:59)
[2017-08-01] MEDS: ACETAMINOPHEN 325 MG TABLET PO PRN (04:50)
[2017-08-01] MEDS: LEVOTHYROXINE 88 MCG TABLET PO SCH (05:58)
[2017-08-01 06:18] LABS: Basophils % 0.3 % (0.0-0.8); Eosinophils # 0.2 10*3/uL (0.0-0.87); Eosinophils % 2.1 % (0.00-10.9); Hematocrit 27.9 VOL% (35.7-47.0); Hemoglobin 9.1 GM/DL (12.0-16.0); Immature Granulocytes % 0.6 %; Immature Granulocytes Absolute 0.05 #; Lymphocytes # 1.2 10*3/uL (1.4-4.0); Lymphocytes % 15.4 % (21.3-54.2); Mean Corpuscular HGB Conc 32.6 GM/DL (32-36); Mean Corpuscular Hemoglobin 27 PG (27-34); Mean Corpuscular Volume 81.3 FL (87-102); Mean Platelet Volume 11.1 FL (9.6-12.0); Monocytes # 0.8 10*3/uL (0.11-0.8); Neutrophils # 5.7 10*3/uL (1.4-7.4); Neutrophils % 71.6 % (38.7-73.9); Platelet Count 192 T/CUMM (130-400); Red Blood Count 3.43 MC/CUMM (3.8-5.5); Red Cell Distribution Width 16.1 % (9.3-17.3); White Blood Count 7.9 T/CUMM (4-12)
[2017-08-01] MEDS ORDERED: LIDOCAINE 1% 20 ML VIAL IM ONE (06:41)
[2017-08-01 06:56] LABS: Calcium 8.3 MG/DL (8.5-10.1); Potassium 3.8 MMOL/L (3.5-5.1)
[2017-08-01] MEDS: MAGNESIUM CHLORIDE 64 MG TABLET PO SCH ×2 (09:23→21:18)
[2017-08-01] MEDS: VITAMIN E 400 UNIT CAPSULE PO SCH (09:23)
[2017-08-01] MEDS: PANTOPRAZOLE 40 MG TABLET PO SCH (09:24)
[2017-08-01] MEDS: amLODIPine 2.5 MG TABLET PO SCH (09:24)
[2017-08-01] MEDS: metFORMIN 500 MG TABLET PO SCH ×2 (09:24→17:40)
[2017-08-01] MEDS: ATENOLOL 25 MG TABLET PO SCH ×2 (09:24→17:40)
[2017-08-01] MEDS: SPIRONOLACTONE 25 MG TABLET PO SCH (09:25)
[2017-08-01] MEDS: CEFEPIME 1,000 MG in SODIUM CHLORIDE 0.9% 50 ML IV SCH (09:27)
[2017-08-01] MEDS ORDERED: CEFEPIME 2,000 MG in SYRINGE 1 EACH IV SCH (21:00)
[2017-08-01] MEDS: PRAVASTATIN 20 MG TABLET PO SCH (21:18)
[2017-08-01] MEDS: ASPIRIN EC 325 MG TABLET PO SCH (21:18)
[2017-08-01] MEDS: INSULIN GLARGINE 100 UNIT/ML SUBCUT SCH (21:20)
[2017-08-02 04:50] LABS: Basophils % 0.6 % (0.0-0.8); Eosinophils # 0.2 10*3/uL (0.0-0.87); Eosinophils % 3.5 % (0.00-10.9); Hematocrit 27.6 VOL% (35.7-47.0); Immature Granulocytes % 0.8 %; Immature Granulocytes Absolute 0.05 #; Lymphocytes # 1.3 10*3/uL (1.4-4.0); Lymphocytes % 20.1 % (21.3-54.2); Mean Corpuscular HGB Conc 32.6 GM/DL (32-36); Mean Corpuscular Hemoglobin 27 PG (27-34); Mean Corpuscular Volume 81.4 FL (87-102); Mean Platelet Volume 10.5 FL (9.6-12.0); Monocytes # 0.8 10*3/uL (0.11-0.8); Monocytes % 11.4 % (1.7-12.7); Neutrophils # 4.2 10*3/uL (1.4-7.4); Neutrophils % 63.6 % (38.7-73.9); Platelet Count 210 T/CUMM (130-400); Red Blood Count 3.39 MC/CUMM (3.8-5.5); Red Cell Distribution Width 16.1 % (9.3-17.3); White Blood Count 6.6 T/CUMM (4-12)
[2017-08-02] MEDS: VANCOMYCIN INJ 1,000 MG in SODIUM CHLORIDE 0.9% 250 ML IV SCH ×2 (05:14→16:07)
[2017-08-02 05:28] LABS: Osmolality,Calculated 281.4 MOS/KG (273-304); Potassium 4.2 MMOL/L (3.5-5.1)
[2017-08-02] MEDS: LEVOTHYROXINE 88 MCG TABLET PO SCH (06:14)
[2017-08-02] MEDS: metFORMIN 500 MG TABLET PO SCH ×2 (09:12→17:19)
[2017-08-02] MEDS: amLODIPine 2.5 MG TABLET PO SCH (09:12)
[2017-08-02] MEDS: MAGNESIUM CHLORIDE 64 MG TABLET PO SCH ×2 (09:12→21:34)
[2017-08-02] MEDS: ATENOLOL 25 MG TABLET PO SCH ×3 (09:13→17:40)
[2017-08-02] MEDS: SPIRONOLACTONE 25 MG TABLET PO SCH (09:13)
[2017-08-02] MEDS: PANTOPRAZOLE 40 MG TABLET PO SCH (09:13)
[2017-08-02] MEDS: VITAMIN E 400 UNIT CAPSULE PO SCH (09:13)
[2017-08-02] MEDS: ALBUTEROL/IPRATROPIUM 3 ML NEB RESP TX SCH ×3 (09:34→20:24)
[2017-08-02] MEDS: LEVOFLOXACIN INJ 500 MG in PREMIX 1 EACH IV SCH (10:01)
[2017-08-02] MEDS: INSULIN GLARGINE 100 UNIT/ML SUBCUT SCH (21:33)
[2017-08-02] MEDS: ASPIRIN EC 325 MG TABLET PO SCH (21:34)
[2017-08-02] MEDS: PRAVASTATIN 20 MG TABLET PO SCH (21:34)
[2017-08-03] MEDS: ALBUTEROL/IPRATROPIUM 3 ML NEB RESP TX SCH ×4 (00:45→20:24)
[2017-08-03 02:24] LABS: Basophils % 0.7 % (0.0-0.8); Eosinophils # 0.2 10*3/uL (0.0-0.87); Hemoglobin 8.7 GM/DL (12.0-16.0); Immature Granulocytes % 1.5 %; Immature Granulocytes Absolute 0.09 #; Lymphocytes # 1.2 10*3/uL (1.4-4.0); Lymphocytes % 19.8 % (21.3-54.2); Mean Corpuscular HGB Conc 32.2 GM/DL (32-36); Mean Corpuscular Hemoglobin 26 PG (27-34); Mean Corpuscular Volume 81.3 FL (87-102); Mean Platelet Volume 10.5 FL (9.6-12.0); Monocytes # 0.6 10*3/uL (0.11-0.8); Monocytes % 10.8 % (1.7-12.7); NRBC # 0.02 10*3/uL; Neutrophils # 3.8 10*3/uL (1.4-7.4); Neutrophils % 63.2 % (38.7-73.9); Platelet Count 223 T/CUMM (130-400); Red Blood Count 3.32 MC/CUMM (3.8-5.5); Red Cell Distribution Width 16.1 % (9.3-17.3)
[2017-08-03 02:55] LABS: Calcium 9.1 MG/DL (8.5-10.1); Osmolality,Calculated 286.4 MOS/KG (273-304); Potassium 4.1 MMOL/L (3.5-5.1)
[2017-08-03] MEDS: VANCOMYCIN INJ 1,000 MG in SODIUM CHLORIDE 0.9% 250 ML IV SCH ×2 (05:20→15:38)
[2017-08-03] MEDS: LEVOTHYROXINE 88 MCG TABLET PO SCH (06:26)
[2017-08-03] MEDS: metFORMIN 500 MG TABLET PO SCH ×2 (08:38→16:35)
[2017-08-03] MEDS: VITAMIN E 400 UNIT CAPSULE PO SCH (08:38)
[2017-08-03] MEDS: PANTOPRAZOLE 40 MG TABLET PO SCH (08:38)
[2017-08-03] MEDS: SPIRONOLACTONE 25 MG TABLET PO SCH (08:38)
[2017-08-03] MEDS: MAGNESIUM CHLORIDE 64 MG TABLET PO SCH ×2 (08:38→21:24)
[2017-08-03] MEDS: LEVOFLOXACIN INJ 500 MG in PREMIX 1 EACH IV SCH (08:38)
[2017-08-03] MEDS: ATENOLOL 25 MG TABLET PO SCH ×3 (08:38→17:33)
[2017-08-03] MEDS: amLODIPine 2.5 MG TABLET PO SCH (08:39)
[2017-08-03] MEDS: DOCUSATE SODIUM 100 MG CAPSULE PO SCH ×2 (15:42→21:24)
[2017-08-03] MEDS: PRAVASTATIN 20 MG TABLET PO SCH (21:24)
[2017-08-03] MEDS: ASPIRIN EC 325 MG TABLET PO SCH (21:24)
[2017-08-03] MEDS: INSULIN GLARGINE 100 UNIT/ML SUBCUT SCH (21:24)
[2017-08-04] MEDS: ALBUTEROL/IPRATROPIUM 3 ML NEB RESP TX SCH ×4 (02:37→19:55)
[2017-08-04 05:03] LABS: Calcium 8.9 MG/DL (8.5-10.1); Osmolality,Calculated 280.5 MOS/KG (273-304); Potassium 4.3 MMOL/L (3.5-5.1)
[2017-08-04] MEDS: VANCOMYCIN INJ 1,000 MG in SODIUM CHLORIDE 0.9% 250 ML IV SCH ×2 (05:49→17:01)
[2017-08-04] MEDS: LEVOTHYROXINE 88 MCG TABLET PO SCH (06:42)
[2017-08-04] MEDS: VITAMIN E 400 UNIT CAPSULE PO SCH (09:26)
[2017-08-04] MEDS: ATENOLOL 25 MG TABLET PO SCH ×2 (09:26→17:58)
[2017-08-04] MEDS: MAGNESIUM CHLORIDE 64 MG TABLET PO SCH ×2 (09:26→21:20)
[2017-08-04] MEDS: metFORMIN 500 MG TABLET PO SCH ×2 (09:26→16:45)
[2017-08-04] MEDS: SPIRONOLACTONE 25 MG TABLET PO SCH (09:27)
[2017-08-04] MEDS: amLODIPine 2.5 MG TABLET PO SCH (09:27)
[2017-08-04] MEDS: DOCUSATE SODIUM 100 MG CAPSULE PO SCH ×2 (09:27→21:20)
[2017-08-04] MEDS: PANTOPRAZOLE 40 MG TABLET PO SCH (09:27)
[2017-08-04] MEDS: LEVOFLOXACIN INJ 500 MG in PREMIX 1 EACH IV SCH ×2 (09:28→10:08)
[2017-08-04] MEDS: SODIUM HYPOCHLORITE 0.25% IRRIG 473 ML BOTTLE TOP SCH (12:47)
[2017-08-04] MEDS ORDERED: VANCOMYCIN INJ 1,000 MG in SODIUM CHLORIDE 0.9% 250 ML IV PRN (21:00)
[2017-08-04] MEDS: PRAVASTATIN 20 MG TABLET PO SCH (21:19)
[2017-08-04] MEDS: INSULIN GLARGINE 100 UNIT/ML SUBCUT SCH (21:19)
[2017-08-04] MEDS: ASPIRIN EC 325 MG TABLET PO SCH (21:20)
[2017-08-05] MEDS: ALBUTEROL/IPRATROPIUM 3 ML NEB RESP TX SCH ×4 (01:21→19:28)
[2017-08-05] MEDS: LEVOTHYROXINE 88 MCG TABLET PO SCH (10:46)
[2017-08-05] MEDS: amLODIPine 2.5 MG TABLET PO SCH (10:47)
[2017-08-05] MEDS: metFORMIN 500 MG TABLET PO SCH ×2 (10:47→17:01)
[2017-08-05] MEDS: LEVOFLOXACIN INJ 500 MG in PREMIX 1 EACH IV SCH (10:47)
[2017-08-05] MEDS: PANTOPRAZOLE 40 MG TABLET PO SCH (10:47)
[2017-08-05] MEDS: DOCUSATE SODIUM 100 MG CAPSULE PO SCH ×2 (10:47→20:30)
[2017-08-05] MEDS: SPIRONOLACTONE 25 MG TABLET PO SCH (10:47)
[2017-08-05] MEDS: VITAMIN E 400 UNIT CAPSULE PO SCH (10:48)
[2017-08-05] MEDS: MAGNESIUM CHLORIDE 64 MG TABLET PO SCH ×2 (10:48→20:29)
[2017-08-05] MEDS: ATENOLOL 25 MG TABLET PO SCH ×3 (10:48→18:38)
[2017-08-05] MEDS: SODIUM HYPOCHLORITE 0.25% IRRIG 473 ML BOTTLE TOP SCH (13:20)
[2017-08-05] MEDS: ASPIRIN EC 325 MG TABLET PO SCH (20:30)
[2017-08-05] MEDS: INSULIN GLARGINE 100 UNIT/ML SUBCUT SCH (20:30)
[2017-08-05] MEDS: PRAVASTATIN 20 MG TABLET PO SCH (20:30)
[2017-08-06] MEDS: ALBUTEROL/IPRATROPIUM 3 ML NEB RESP TX SCH ×2 (00:35→07:13)
[2017-08-06] MEDS: LEVOTHYROXINE 88 MCG TABLET PO SCH (06:20)
[2017-08-06] MEDS: SODIUM HYPOCHLORITE 0.25% IRRIG 473 ML BOTTLE TOP SCH (08:10)
[2017-08-06] MEDS: LEVOFLOXACIN INJ 500 MG in PREMIX 1 EACH IV SCH (09:31)
[2017-08-06] MEDS: DOCUSATE SODIUM 100 MG CAPSULE PO SCH (09:34)
[2017-08-06] MEDS: PANTOPRAZOLE 40 MG TABLET PO SCH (09:34)
[2017-08-06] MEDS: metFORMIN 500 MG TABLET PO SCH (09:34)
[2017-08-06] MEDS: ATENOLOL 25 MG TABLET PO SCH (09:34)
[2017-08-06] MEDS: MAGNESIUM CHLORIDE 64 MG TABLET PO SCH (09:34)
[2017-08-06] MEDS: amLODIPine 2.5 MG TABLET PO SCH (09:34)
[2017-08-06] MEDS: SPIRONOLACTONE 25 MG TABLET PO SCH (09:36)
[2017-08-06] MEDS: VITAMIN E 400 UNIT CAPSULE PO SCH (09:37)
[2017-08-06 12:01] VITALS: BP 144/79
== END 2017-08-06 14:00 | disposition home health service (06) | DRG 863 ==
LOC: N.ED 19:25 → N.EDINP 23:15 → N.ICU 23:51 → N.TELEN 07-31 17:30

== ENCOUNTER 2021-05-26 20:05 | Inpatient (IN) ==
[2021-05-26] MEDS ORDERED: hydrALAZINE 20 MG/1 ML VIAL IV STA (20:53)
[2021-05-26 21:10] LABS: Basophils # 0.1 10*3/uL (0.0-0.2); Basophils % 0.8 % (0.0-0.8); Eosinophils # 0.1 10*3/uL (0.0-0.87); Eosinophils % 1.9 % (0.00-10.9); Hematocrit 29.4 VOL% (35.7-47.0); Hemoglobin 8.5 GM/DL (12.0-16.0); Immature Granulocytes % 0.5 %; Immature Granulocytes Absolute 0.03 #; Lymphocytes # 1.6 10*3/uL (1.4-4.0); Lymphocytes % 24.4 % (21.3-54.2); Mean Corpuscular HGB Conc 28.9 GM/DL (32-36); Mean Corpuscular Volume 67.9 FL (87-102); Mean Platelet Volume 10.2 FL (9.6-12.0); Monocytes % 9.7 % (1.7-12.7); Neutrophils % 62.7 % (38.7-73.9); Platelet Count 215 T/CUMM (130-400); Red Blood Count 4.33 MC/CUMM (3.8-5.5); Red Cell Distribution Width 19.3 % (9.3-17.3); White Blood Count 6.4 T/CUMM (4-12)
[2021-05-26 21:16] LABS: Albumin 4.2 G/DL (3.4-5.0); Bilirubin,Total 0.6 MG/DL (0.20-1.00); Osmolality,Calculated 271.2 MOS/KG (273-304); Potassium 4.5 MMOL/L (3.5-5.1); Total Protein 7.4 G/DL (6.4-8.2)
[2021-05-26] MEDS ORDERED: DEXTROSE 50% 25 GM/50 ML VIAL IV PRN (21:55)
[2021-05-26] MEDS ORDERED: ONDANSETRON 4 MG/2 ML VIAL IV PRN (21:55)
[2021-05-26] MEDS ORDERED: GLUCAGON 1 MG VIAL IM PRN (21:55)
[2021-05-26] MEDS ORDERED: MORPHINE 2 MG/1 ML SYRINGE IV PRN (21:55)
[2021-05-26] MEDS ORDERED: MAGNESIUM SULF RIDER 2 GM/50 ML PREMIX IV PRN (21:55)
[2021-05-26] MEDS ORDERED: ENOXAPARIN 100 MG/ML SYRINGE SUBCUT SCH (22:00)
[2021-05-26] MEDS ORDERED: ENOXAPARIN 60 MG/0.6 ML SYRINGE SUBCUT SCH (22:30)
[2021-05-26] MEDS: LACTATED RINGERS 1,000 ML IV SCH (22:48)
[2021-05-27 02:48] LABS: Basophils % 0.6 % (0.0-0.8); Eosinophils # 0.2 10*3/uL (0.0-0.87); Eosinophils % 2.4 % (0.00-10.9); Hematocrit 28.9 VOL% (35.7-47.0); Hemoglobin 8.5 GM/DL (12.0-16.0); Immature Granulocytes % 0.2 %; Immature Granulocytes Absolute 0.01 #; Lymphocytes # 2.3 10*3/uL (1.4-4.0); Mean Corpuscular HGB Conc 29.4 GM/DL (32-36); Mean Corpuscular Volume 67.8 FL (87-102); Mean Platelet Volume 10.4 FL (9.6-12.0); Monocytes % 9.7 % (1.7-12.7); Neutrophils % 50.1 % (38.7-73.9); Platelet Count 218 T/CUMM (130-400); Red Blood Count 4.26 MC/CUMM (3.8-5.5); Red Cell Distribution Width 19.5 % (9.3-17.3); White Blood Count 6.2 T/CUMM (4-12)
[2021-05-27 03:08] LABS: Albumin 3.9 G/DL (3.4-5.0); Bilirubin,Total 0.4 MG/DL (0.20-1.00); Calcium 9.4 MG/DL (8.5-10.1); Osmolality,Calculated 274.7 MOS/KG (273-304); Potassium 4.5 MMOL/L (3.5-5.1); Total Protein 7.1 G/DL (6.4-8.2)
[2021-05-27 03:32] LABS: Hypochromasia 1+; Microcytosis 1+; Ovalocytes 1+; Platelet Estimate Normal
[2021-05-27 03:33] LABS: Anisocytosis 1+
[2021-05-27] MEDS ORDERED: MAGNESIUM SULF RIDER 2 GM/50 ML PREMIX IV PRN (08:11)
[2021-05-27] MEDS ORDERED: MAGNESIUM SULF RIDER 4 GM/100 ML PREMIX IV PRN (08:11)
[2021-05-27] MEDS ORDERED: LOSARTAN 25 MG TABLET PO SCH ×2 (09:00→19:00)
[2021-05-27] MEDS: ASPIRIN EC 81 MG TABLET PO SCH ×2 (09:13→10:05)
[2021-05-27] MEDS: MAGNESIUM CHLORIDE 64 MG TABLET PO SCH ×2 (09:14→21:53)
[2021-05-27] MEDS: LEVOTHYROXINE 88 MCG TABLET PO SCH (09:14)
[2021-05-27] MEDS: VITAMIN E 400 UNIT CAPSULE PO SCH (09:15)
[2021-05-27] MEDS: METOPROLOL TARTRATE 50 MG TABLET PO SCH ×2 (09:16→21:53)
[2021-05-27] MEDS: LACTATED RINGERS 1,000 ML IV SCH ×2 (09:56→22:07)
[2021-05-27] MEDS: ASPIRIN EC 325 MG TABLET PO SCH (09:59)
[2021-05-27 12:22] LABS: Potassium 4.1 MMOL/L (3.5-5.1)
[2021-05-27] MEDS: metFORMIN 500 MG TABLET PO SCH (17:34)
[2021-05-27 17:57] LABS: Bilirubin,Urine Negative (Negative); Blood, Urine Negative (Negative); Glucose,Urine (UA) Negative (Negative); Ketones,Urine Negative (Negative); Mucus,Urine Occasional /LPF (Occasional); Nitrite,Urine Negative (Negative); Protein,Urine Negative; RBC,Urine 1 /HPF (0-4); Squamous Epithelial Cell,Urine Occasional /HPF (0-10); Urine Appearance Slightly Hazy (Clear); Urine Color Yellow (Yellow); Urine Urobilinogen < 2.0 EU/DL (0.2-1.0)
[2021-05-27] MEDS ORDERED: SIMVASTATIN 10 MG TABLET PO SCH (21:00)
[2021-05-27] MEDS ORDERED: INSULIN GLARGINE 100 UNIT/ML SUBCUT SCH (21:00)
[2021-05-27] MEDS: ENOXAPARIN 40 MG/0.4 ML SYRINGE SUBCUT SCH ×2 (21:30→22:04)
[2021-05-28] MEDS: LACTATED RINGERS 1,000 ML IV SCH ×3 (01:42→15:44)
[2021-05-28 05:35] LABS: Basophils % 0.7 % (0.0-0.8); Eosinophils # 0.1 10*3/uL (0.0-0.87); Eosinophils % 3.1 % (0.00-10.9); Hematocrit 27.2 VOL% (35.7-47.0); Hemoglobin 7.9 GM/DL (12.0-16.0); Immature Granulocytes % 0.2 %; Immature Granulocytes Absolute 0.01 #; Lymphocytes # 1.4 10*3/uL (1.4-4.0); Lymphocytes % 33.4 % (21.3-54.2); Mean Corpuscular Volume 68.5 FL (87-102); Mean Platelet Volume 10.6 FL (9.6-12.0); Monocytes % 12.9 % (1.7-12.7); Neutrophils % 49.7 % (38.7-73.9); Red Blood Count 3.97 MC/CUMM (3.8-5.5); Red Cell Distribution Width 19.3 % (9.3-17.3); White Blood Count 4.3 T/CUMM (4-12)
[2021-05-28 05:36] LABS: Platelet Count 169 T/CUMM (130-400)
[2021-05-28] MEDS: LEVOTHYROXINE 88 MCG TABLET PO SCH (05:42)
[2021-05-28 06:00] LABS: Hypochromasia 1+; Microcytosis 1+; Platelet Estimate Adequate
[2021-05-28 06:13] LABS: Osmolality,Calculated 278.4 MOS/KG (273-304); Potassium 4.1 MMOL/L (3.5-5.1)
[2021-05-28] MEDS: METOPROLOL TARTRATE 50 MG TABLET PO SCH (08:47)
[2021-05-28] MEDS: VITAMIN E 400 UNIT CAPSULE PO SCH (08:48)
[2021-05-28] MEDS: MAGNESIUM CHLORIDE 64 MG TABLET PO SCH (08:48)
[2021-05-28] MEDS: ASPIRIN EC 325 MG TABLET PO SCH (08:48)
[2021-05-28] MEDS: metFORMIN 500 MG TABLET PO SCH (08:48)
[2021-05-28 12:38] VITALS: BP 155/61
== END 2021-05-28 15:43 | disposition home or self-care (01) | DRG 641 ==
LOC: EDBD → EDUNIT# → N.EDINP 20:05 → N.ED 20:05 → N.EDINP 22:35 → N.TELEN 22:44
PROVIDERS: ADMIT Family Medicine; ATTEND Family Medicine